=== PATIENT | female | born 1940 | race Caucasian/White ===

== ENCOUNTER 2018-02-03 23:04 | Emergency (ER) | payer MEDICARE, BC ==
--- NOTE | 2018-02-03 23:16 | EDM.PDOC ---
ED HPI GENERAL MEDICAL PROBLEM - General Stated Complaint: EYES IRRIATION Time Seen by Provider: 02/03/18 23:05 Source of Information: Reports: Patient History Limitations: Reports: No Limitations - History of Present Illness INITIAL COMMENTS - FREE TEXT/NARRATIVE: Deandra had minor splash of bleach into both eyes. She washed them for 5 minutes and put some eye for drops (refresh tears),but still complains of burning and blurred vision. - Related Data Allergies Allergy/AdvReac Type Severity Reaction Status Date / Time chocolate flavor Allergy Hives Verified 04/03/16 19:41 oxycodone HCl Allergy Cannot Verified 04/03/16 19:41 [From OxyContin] Remember Home Meds: Home Meds Gabapentin [Neurontin] 100 mg PO BEDTIME 04/03/16 [History] Lisinopril [Prinivil] 10 mg PO DAILY 04/03/16 [History] Pravastatin [Pravachol] 10 mg PO BEDTIME 04/03/16 [History] Sulfamethoxazole/Trimethoprim [Bactrim Ds Tablet] 1 tab PO Q12H 04/03/16 [ History] cephALEXin [Cephalexin] 500 mg PO Q6HR #30 capsule 04/03/16 [Rx] metFORMIN [Glucophage] 250 mg PO BID 04/03/16 [History] Past Medical History HEENT History: Reports: Cataract Cardiovascular History: Reports: Heart Murmur, Hypertension Gastrointestinal History: Reports: GERD 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 ED EXAM GENERAL W FULL EYE - Physical Exam Exam: See Below Eye Exam: Bilateral Eye: Conjunctival Injection, PERRL With Correction: No Eyelids: Bilateral: Normal Appearance, Subcutaneous Emphysema Conjunctiva & Sclera: Bilateral: Injected Cornea Exam: Bilateral: Normal Appearance Extraocular Movements: Bilateral: Intact Pupils: Normal Accommodation Pupillary Size: Bilateral: 4 mm Pupillary Reaction: Bilateral: Brisk Anterior Chamber: Bilateral: Normal Appearance Posterior Chamber: Bilateral: Normal Funduscopic Ears: Other (mild redness periorbital) Nose: Normal Inspection Throat/Mouth: Normal Inspection Departure - Departure Time of Disposition: 23:19 Disposition: Home, Self-Care 01 Clinical Impression: Chemical burn of eye - Discharge Information Instructions: Chemical Burn of the Eyes, Adult Referrals: Cris Flores NP [Primary Care Provider] - - Problem List & Annotations (1) Chemical burn of eye SNOMED Code(s): 280973754, 010328080 Code(s): T26.90XA - CORROSION OF UNSP EYE AND ADNEXA, PART UNSP, INIT ENCNTR Status: Acute - Problem List Review Problem List Initiated/Reviewed/Updated: Yes - Assessment/Plan Plan: We contacted poison board control who recommended observation and reassurance. We discharge the patient home to use refresh drops as needed and follow-up when necessary
[2018-02-03 23:59] VITALS: BP 158/81
== END 2018-02-03 23:30 | disposition home or self-care (01) ==
LOC: FB.ED 23:04
DX: T26.92XA Corrosion of left eye and adnexa, part unspecified, initial encounter (principal); T26.91XA Corrosion of right eye and adnexa, part unspecified, initial encounter; I10 Essential (primary) hypertension; K21.9 Gastro-esophageal reflux disease without esophagitis; Z88.8 Allergy status to other drugs, medicaments and biological substances; Z91.018 Allergy to other foods; Z79.82 Long term (current) use of aspirin; Z77.098 Contact with and (suspected) exposure to other hazardous, chiefly nonmedicinal, chemicals
CPT/HCPCS: 99282; 99283

== ENCOUNTER 2018-08-06 11:22 | Inpatient (IN) | payer MEDICARE, BC ==
[2018-08-06] MEDS ORDERED: ALPRAZolam 0.25 MG Tab PO PRN (12:33)
[2018-08-06] MEDS ORDERED: Bisacodyl 5 MG Tab PO PRN (12:50)
[2018-08-06] MEDS ORDERED: Ketotifen 0.025% Ophth Soln 5 ML Bottle EYEBOTH PRN (12:50)
[2018-08-06] MEDS ORDERED: Cetirizine 10 MG Tab PO PRN (12:50)
[2018-08-06] MEDS ORDERED: Bisacodyl 10 MG Supp RECTAL PRN (12:50)
[2018-08-06] MEDS ORDERED: Magnesium Hydroxide 400 MG/5 ML Susp 30 ML Cup PO PRN (12:50)
[2018-08-06] MEDS: Acetaminophen 325 MG Tab PO SCH ×3 (14:26→23:13)
[2018-08-06] MEDS: traMADol 50 MG Tab PO SCH ×2 (14:28→20:26)
[2018-08-06] MEDS: metFORMIN 500 MG Tab PO SCH (17:57)
[2018-08-06] MEDS: diphenhydrAMINE 50 MG Cap PO SCH (20:29)
[2018-08-06] MEDS: rOPINIRole 0.5 MG Tab PO SCH (20:30)
[2018-08-06] MEDS: Aspirin 325 MG Tab.EC PO SCH (20:30)
[2018-08-06] MEDS: Fish Oil/Omega-3 Fatty Acids 1 Gm Cap PO SCH (20:30)
[2018-08-06] MEDS: Gabapentin 100 MG Cap PO SCH (20:30)
[2018-08-06] MEDS: Simvastatin 10 MG Tab PO SCH (20:31)
[2018-08-07] MEDS: traMADol 50 MG Tab PO SCH ×4 (01:57→21:24)
[2018-08-07] MEDS ORDERED: traMADol 50 MG Tab PO ONE (04:49)
[2018-08-07] MEDS: Pantoprazole 40 MG Tab.CR PO SCH (05:20)
[2018-08-07] MEDS: Acetaminophen 325 MG Tab PO SCH ×4 (05:20→23:50)
[2018-08-07] MEDS: metFORMIN 500 MG Tab PO SCH ×2 (07:56→17:29)
[2018-08-07] MEDS: Aspirin 325 MG Tab.EC PO SCH ×2 (08:00→21:26)
[2018-08-07] MEDS: Fish Oil/Omega-3 Fatty Acids 1 Gm Cap PO SCH ×2 (08:00→21:27)
[2018-08-07] MEDS: Lisinopril 10 MG Tab PO SCH (08:01)
[2018-08-07] MEDS: Calcium Carbonate/Vitamin D3 1250 MG-200 Unit Tab PO SCH (08:01)
[2018-08-07] MEDS: Carboxymethylcellulose Sodium 1% Ophth Gel 0.4 ML UD Box of 30 EYEBOTH SCH (08:02)
[2018-08-07] MEDS: Polyethylene Glycol 3350 Powder 17 GM Packet PO SCH (08:02)
[2018-08-07] MEDS: Gabapentin 100 MG Cap PO SCH ×2 (08:08→21:27)
[2018-08-07] MEDS: diphenhydrAMINE 50 MG Cap PO SCH (21:26)
[2018-08-07] MEDS: rOPINIRole 0.5 MG Tab PO SCH (21:27)
[2018-08-07] MEDS: Simvastatin 10 MG Tab PO SCH (21:29)
[2018-08-08] MEDS: traMADol 50 MG Tab PO SCH ×4 (02:18→19:57)
[2018-08-08] MEDS: Acetaminophen 325 MG Tab PO SCH ×3 (05:07→17:32)
[2018-08-08] MEDS: Pantoprazole 40 MG Tab.CR PO SCH (05:07)
[2018-08-08] MEDS: metFORMIN 500 MG Tab PO SCH ×2 (07:32→17:33)
[2018-08-08] MEDS: Fish Oil/Omega-3 Fatty Acids 1 Gm Cap PO SCH ×2 (08:07→21:50)
[2018-08-08] MEDS: Aspirin 325 MG Tab.EC PO SCH ×2 (08:07→21:50)
[2018-08-08] MEDS: Calcium Carbonate/Vitamin D3 1250 MG-200 Unit Tab PO SCH (08:07)
[2018-08-08] MEDS: Polyethylene Glycol 3350 Powder 17 GM Packet PO SCH (08:08)
[2018-08-08] MEDS: Lisinopril 10 MG Tab PO SCH (08:08)
[2018-08-08] MEDS: Carboxymethylcellulose Sodium 1% Ophth Gel 0.4 ML UD Box of 30 EYEBOTH SCH (08:11)
[2018-08-08] MEDS: Gabapentin 100 MG Cap PO SCH ×2 (09:00→21:54)
[2018-08-08] MEDS: diphenhydrAMINE 50 MG Cap PO SCH (21:49)
[2018-08-08] MEDS: rOPINIRole 0.5 MG Tab PO SCH (21:50)
[2018-08-08] MEDS: Simvastatin 10 MG Tab PO SCH (21:52)
[2018-08-09] MEDS: Acetaminophen 325 MG Tab PO SCH ×4 (00:26→17:44)
[2018-08-09] MEDS: traMADol 50 MG Tab PO SCH ×4 (02:21→19:55)
[2018-08-09] MEDS: Pantoprazole 40 MG Tab.CR PO SCH (05:56)
[2018-08-09] MEDS: metFORMIN 500 MG Tab PO SCH ×2 (08:16→17:44)
[2018-08-09] MEDS: Calcium Carbonate/Vitamin D3 1250 MG-200 Unit Tab PO SCH (08:17)
[2018-08-09] MEDS: Lisinopril 10 MG Tab PO SCH (08:18)
[2018-08-09] MEDS: Aspirin 325 MG Tab.EC PO SCH ×2 (08:18→21:45)
[2018-08-09] MEDS: Gabapentin 100 MG Cap PO SCH ×2 (08:18→21:48)
[2018-08-09] MEDS: Carboxymethylcellulose Sodium 1% Ophth Gel 0.4 ML UD Box of 30 EYEBOTH SCH (08:19)
[2018-08-09] MEDS: Polyethylene Glycol 3350 Powder 17 GM Packet PO SCH (08:20)
[2018-08-09] MEDS: Fish Oil/Omega-3 Fatty Acids 1 Gm Cap PO SCH ×2 (08:20→21:45)
[2018-08-09] MEDS: diphenhydrAMINE 50 MG Cap PO SCH (21:44)
[2018-08-09] MEDS: rOPINIRole 0.5 MG Tab PO SCH (21:45)
[2018-08-09] MEDS: Simvastatin 10 MG Tab PO SCH (21:46)
[2018-08-10] MEDS: Acetaminophen 325 MG Tab PO SCH ×4 (00:10→17:28)
[2018-08-10] MEDS: traMADol 50 MG Tab PO SCH ×4 (02:06→20:28)
[2018-08-10] MEDS: Pantoprazole 40 MG Tab.CR PO SCH (05:06)
[2018-08-10] MEDS: Fish Oil/Omega-3 Fatty Acids 1 Gm Cap PO SCH ×2 (08:20→20:24)
[2018-08-10] MEDS: Calcium Carbonate/Vitamin D3 1250 MG-200 Unit Tab PO SCH (08:20)
[2018-08-10] MEDS: metFORMIN 500 MG Tab PO SCH ×2 (08:20→17:28)
[2018-08-10] MEDS: Aspirin 325 MG Tab.EC PO SCH ×2 (08:20→20:24)
[2018-08-10] MEDS: Lisinopril 10 MG Tab PO SCH (08:21)
[2018-08-10] MEDS: Polyethylene Glycol 3350 Powder 17 GM Packet PO SCH (08:22)
[2018-08-10] MEDS: Carboxymethylcellulose Sodium 1% Ophth Gel 0.4 ML UD Box of 30 EYEBOTH SCH (09:56)
[2018-08-10] MEDS: Gabapentin 100 MG Cap PO SCH ×2 (09:56→20:28)
[2018-08-10] MEDS: rOPINIRole 0.5 MG Tab PO SCH (20:23)
[2018-08-10] MEDS: Simvastatin 10 MG Tab PO SCH (20:24)
[2018-08-10] MEDS: diphenhydrAMINE 50 MG Cap PO SCH (20:24)
[2018-08-11] MEDS: Acetaminophen 325 MG Tab PO SCH ×4 (00:10→17:48)
[2018-08-11] MEDS: traMADol 50 MG Tab PO SCH ×4 (02:06→21:32)
[2018-08-11] MEDS ORDERED: Alendronate 70 MG Tab PO SCH (06:00)
[2018-08-11] MEDS: Pantoprazole 40 MG Tab.CR PO SCH (06:09)
[2018-08-11] MEDS: metFORMIN 500 MG Tab PO SCH ×2 (08:38→18:04)
[2018-08-11] MEDS: Aloe Vera/Sodium Chloride Gel 14.1 GM Tube NAS PRN (08:41)
[2018-08-11] MEDS: Calcium Carbonate/Vitamin D3 1250 MG-200 Unit Tab PO SCH (08:42)
[2018-08-11] MEDS: Fish Oil/Omega-3 Fatty Acids 1 Gm Cap PO SCH ×2 (08:42→21:34)
[2018-08-11] MEDS: Aspirin 325 MG Tab.EC PO SCH ×2 (08:42→21:34)
[2018-08-11] MEDS: Lisinopril 10 MG Tab PO SCH (08:43)
[2018-08-11] MEDS: Gabapentin 100 MG Cap PO SCH ×2 (08:43→21:35)
[2018-08-11] MEDS: Polyethylene Glycol 3350 Powder 17 GM Packet PO SCH (08:43)
[2018-08-11] MEDS: Carboxymethylcellulose Sodium 1% Ophth Gel 0.4 ML UD Box of 30 EYEBOTH SCH (08:50)
--- NOTE | 2018-08-11 19:31 | PCM.HP ---
H&P History of Present Illness - General Date of Service: 08/11/18 Admit Problem/Dx: Admission Diagnosis/Problem Admission Diagnosis/Problem Arthroplasty of knee Source of Information: Patient History Limitations: Reports: No Limitations - History of Present Illness Initial Comments - Free Text/Narative: Is a 77-year-old female patient with a TKA comes down for rehabilitation. Doing well without concerns. Right Knee Pain Score (Numeric/FACES): 5 - Related Data Allergies/Adverse Reactions: Allergies Allergy/AdvReac Type Severity Reaction Status Date / Time chocolate flavor Allergy Hives Verified 08/06/18 12:24 oxycodone HCl Allergy Cannot Verified 08/06/18 12:24 [From OxyContin] Remember red dye Allergy Itching Verified 08/06/18 12:24 Sulfa (Sulfonamide Allergy Nausea Verified 08/06/18 12:24 Antibiotics) Home Medications: Home Meds Lisinopril [Prinivil] 10 mg PO DAILY 04/03/16 [History] Pravastatin [Pravachol] 10 mg PO BEDTIME 04/03/16 [History] metFORMIN [Glucophage] 250 mg PO BIDMEALS 04/03/16 [History] ALPRAZolam [Alprazolam] 0.125 mg PO BEDTIME PRN 02/04/18 [History] Alendronate Sodium [Fosamax] 70 mg PO Q7D 02/04/18 [History] Gabapentin [Neurontin] 100 mg PO BID 02/04/18 [History] Omeprazole 20 mg PO DAILY 02/04/18 [History] rOPINIRole [Requip] 0.25 mg PO BEDTIME 02/04/18 [History] Acetaminophen [Tylenol] 650 mg PO Q6H 08/06/18 [History] Acetaminophen/Diphenhydramine [Tylenol Pm Ex-Strength Caplet] 2 tab PO BEDTIME 08/06/18 [History] Aspirin [Aspirin EC] 325 mg PO BID 08/06/18 [History] Aspirin [Halfprin] 81 mg PO DAILY 08/06/18 [History] Bisacodyl 5 mg PO BID PRN 08/06/18 [History] Bisacodyl [Dulcolax] 10 mg RC DAILY PRN 08/06/18 [History] Calcium Carbonate/Vitamin D3 [Calcium 600 + Vit D 200] 1 tab PO DAILY 08/06/18 [ History] Carboxymethylcellulose Sodium [Refresh Celluvisc] 1 drop EYEBOTH DAILY 08/06/18 [History] Cetirizine [ZyrTEC] 10 mg PO DAILY PRN 08/06/18 [History] Ketotifen [Ketotifen 0.025% Ophth Soln] 1 drop EYEBOTH Q12H PRN 08/06/18 [ History] Lutein 10 mg PO DAILY 08/06/18 [History] Magnesium Hydroxide [Milk of Magnesia] 30 ml PO BID PRN 08/06/18 [History] Page-3 Fatty Acids/Epa [Neurepa 1 Gram Capsule] 1 gm PO BID 08/06/18 [History] Polyethylene Glycol 3350 [MiraLAX] 17 gm PO DAILY 08/06/18 [History] Sennosides/Docusate Sodium [Senna-S] 1 each PO BID 08/06/18 [History] Sodium Chloride/Aloe Vera [Saline Nasal Gel] 1 applic ARMANDO ASDIRECTED PRN [History] oxyCODONE 5 mg PO Q4H PRN 08/06/18 [History] traMADol [Ultram] 50 mg PO Q6H PRN 08/06/18 [History] Past Medical History HEENT History: Reports: Allergic Rhinitis, Cataract Cardiovascular History: Reports: Heart Murmur, High Cholesterol, Hypertension, Other (See Below) Other Cardiovascular History: varicose veins, hyperlipidemia Gastrointestinal History: Reports: Diverticulosis, GERD 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/BYN History: Musculoskeletal History: Reports: Osteoarthritis Neurological History: Reports: Neuropathy, Peripheral, Other (See Below) Other Neuro History: restless leg syndrome, polyneuropathy Psychiatric History: Reports: Anxiety Endocrine/Metabolic History: Reports: Diabetes, Type II Hematologic History: Reports: Anemia - Past Surgical History HEENT Surgical History: Reports: Cataract Surgery GI Surgical History: Reports: Cholecystectomy, Colonoscopy, EGD, Hernia, Abdominal, Hernia Repair/Other Female Surgical History: Reports: Hysterectomy, Other (See Below) Other Female Surgeries/Procedures: BSO, bladder repair Musculoskeletal Surgical History: Reports: Hip Replacement, Knee Replacement, Other (See Below) Other Musculoskeletal Surgeries/Procedures:: Toe fusion, Social & Family History - Family History Family Medical History: Noncontributory - Tobacco Use Smoking Status *Q: Never Smoker - Caffeine Use Caffeine Use: Reports: Coffee - Recreational Drug Use Recreational Drug Use: No H&P Review of Systems - Review of Systems: Review Of Systems: See Below General: Reports: No Symptoms HEENT: Reports: No Symptoms Pulmonary: Reports: No Symptoms Cardiovascular: Reports: No Symptoms Gastrointestinal: Reports: No Symptoms Genitourinary: Reports: No Symptoms Musculoskeletal: Reports: Leg Pain Skin: Reports: No Symptoms Psychiatric: Reports: No Symptoms Neurological: Reports: No Symptoms Exam - Exam Exam: See Below - Vital Signs Vital Signs: Last Vital Signs Temp 96.4 F 08/11/18 11:59 Pulse 75 08/11/18 11:59 Resp 17 08/11/18 11:59 BP 129/57 L 08/11/18 11:59 Pulse Ox 93 L 08/11/18 11:59 Weight: 177 lb 4.8 oz - Exam General: Alert, Oriented, 4 HEENT: PERRLA, Conjunctiva Clear, EACs Clear, EOMI, Hearing Intact, Mucosa Moist & [place], Posterior Pharynx Clear, TMs Clear Neck: Supple, Trachea Midline, 2 Lungs: Clear to Auscultation, Normal Respiratory Effort Cardiovascular: Regular Rate, Regular Rhythm GI/Abdominal Exam: Normal Bowel Sounds, Soft, Non-Tender, No Organomegaly, No Distention, No Abnormal Bruit, No Mass Back Exam: Normal Inspection, Full Range of Motion, NT Extremities: No Pedal Edema, Other (Knee wrapped up not visualized.) Skin: Warm, Dry, Intact Neurological: Normal Speech Neuro Extensive - Mental Status: Alert, Oriented x3, Normal Mood/Affect, Normal Cognition Psychiatric: Alert, Normal Affect, Normal Mood - Patient Data Lab Results Last 24 hrs: Laboratory Results - last 24 hr 08/11/18 Range/Units 06:13 POC Glucose 113 (80-116) mg/dL - Problem List (1) S/P total knee arthroplasty SNOMED Code(s): 7474899419813, [id number], 3961600622635 ICD Code: Z96.659 - PRESENCE OF UNSPECIFIED ARTIFICIAL KNEE JOINT Status: Acute Current Visit: Yes Problem List Initiated/Reviewed/Updated: Yes Orders Last 24hrs: Active Orders 24 hr Category Date Time Status Alendronate [Fosamax] Med 08/11/18 06:00 Active 70 mg PO Tu Aspirin [Halfprin] Med 08/16/18 09:00 Active 81 mg PO DAILY Medication Orders Acetaminophen (Tylenol) 650 mg PO 0000,0600,1200,1800 COUNTS INCLUDE 234 BEDS AT THE [facility] Last Admin: 08/11/18 17:48 Dose: 650 mg Admin: 08/11/18 11:48 Dose: 650 mg Admin: 08/11/18 06:09 Dose: 650 mg Admin: 08/11/18 00:10 Dose: 650 mg Admin: 08/10/18 17:28 Dose: 650 mg Admin: 08/10/18 12:30 Dose: 650 mg Admin: 08/10/18 05:06 Dose: 650 mg Admin: 08/10/18 00:10 Dose: 650 mg Admin: 08/09/18 17:44 Dose: 650 mg Admin: 08/09/18 12:53 Dose: 650 mg Admin: 08/09/18 05:56 Dose: 650 mg Admin: 08/09/18 00:26 Dose: 650 mg Admin: 08/08/18 17:32 Dose: 650 mg Admin: 08/08/18 12:56 Dose: 650 mg Admin: 08/08/18 05:07 Dose: 650 mg Admin: 08/07/18 23:50 Dose: 650 mg Admin: 08/07/18 17:28 Dose: 650 mg Admin: 08/07/18 11:23 Dose: 650 mg Admin: 08/07/18 05:20 Dose: 650 mg Admin: 08/06/18 23:13 Dose: 650 mg Admin: 08/06/18 17:56 Dose: 650 mg Admin: 08/06/18 14:26 Dose: 650 mg Alendronate Sodium (Fosamax) 70 mg PO Tu COUNTS INCLUDE 234 BEDS AT THE [facility] Last Admin: 08/11/18 05:05 Dose: 70 mg Alprazolam (Xanax) 0.25 mg PO Q12H PRN PRN Reason: ANXIETY Artificial Tears (Refresh Celluvisc) 0 each EYEBOTH DAILY COUNTS INCLUDE 234 BEDS AT THE [facility] Last Admin: 08/11/18 08:50 Dose: 1 drop Admin: 08/10/18 09:56 Dose: 1 drop Admin: 08/09/18 08:19 Dose: 2 drop Admin: 08/08/18 08:11 Dose: 1 drop Admin: 08/07/18 08:02 Dose: 1 drop Aspirin (Ecotrin) 325 mg PO BID COUNTS INCLUDE 234 BEDS AT THE [facility] Stop: 08/15/18 21:01 Last Admin: 08/11/18 08:42 Dose: 325 mg Admin: 08/10/18 20:24 Dose: 325 mg Admin: 08/10/18 08:20 Dose: 325 mg Admin: 08/09/18 21:45 Dose: 325 mg Admin: 08/09/18 08:18 Dose: 325 mg Admin: 08/08/18 21:50 Dose: 325 mg Admin: 08/08/18 08:07 Dose: 325 mg Admin: 08/07/18 21:26 Dose: 325 mg Admin: 08/07/18 08:00 Dose: 325 mg Admin: 08/06/18 20:30 Dose: 325 mg Aspirin (Halfprin) 81 mg PO DAILY JOHN Bisacodyl (Dulcolax) 5 mg PO BID PRN PRN Reason: Constipation Bisacodyl (Dulcolax) 10 mg RECTAL DAILY PRN PRN Reason: Constipation Calcium Carbonate (Calcium Carbonate/Vitamin D 1250 Mg-200 Unit) 1 tab PO DAILY COUNTS INCLUDE 234 BEDS AT THE [facility] Last Admin: 08/11/18 08:42 Dose: 1 tab Admin: 08/10/18 08:20 Dose: 1 tab Admin: 08/09/18 08:17 Dose: 1 tab Admin: 08/08/18 08:07 Dose: 1 tab Admin: 08/07/18 08:01 Dose: 1 tab Cetirizine HCl (Zyrtec) 10 mg PO DAILY PRN PRN Reason: Allergies Diphenhydramine HCl (Benadryl) 50 mg PO BEDTIME COUNTS INCLUDE 234 BEDS AT THE [facility] Last Admin: 08/10/18 20:24 Dose: 50 mg Admin: 08/09/18 21:44 Dose: 50 mg Admin: 08/08/18 21:49 Dose: 50 mg Admin: 08/07/18 21:26 Dose: 50 mg Admin: 08/06/18 20:29 Dose: 50 mg Fish Oil (Fish Oil) 1 gm PO BID COUNTS INCLUDE 234 BEDS AT THE [facility] Last Admin: 08/11/18 08:42 Dose: 1 gm Admin: 08/10/18 20:24 Dose: 1 gm Admin: 08/10/18 08:20 Dose: 1 gm Admin: 08/09/18 21:45 Dose: 1 gm Admin: 08/09/18 08:20 Dose: 1 gm Admin: 08/08/18 21:50 Dose: 1 gm Admin: 08/08/18 08:07 Dose: 1 gm Admin: 08/07/18 21:27 Dose: 1 gm Admin: 08/07/18 08:00 Dose: 1 gm Admin: 08/06/18 20:30 Dose: 1 gm Gabapentin (Neurontin) 100 mg PO BID COUNTS INCLUDE 234 BEDS AT THE [facility] Last Admin: 08/11/18 08:43 Dose: 100 mg Admin: 08/10/18 20:28 Dose: 100 mg Admin: 08/10/18 09:56 Dose: 100 mg Admin: 08/09/18 21:48 Dose: 100 mg Admin: 08/09/18 08:18 Dose: 100 mg Admin: 08/08/18 21:54 Dose: 100 mg Admin: 08/08/18 09:00 Dose: 100 mg Admin: 08/07/18 21:27 Dose: 100 mg Admin: 08/07/18 08:08 Dose: 100 mg Admin: 08/06/18 20:30 Dose: 100 mg Ketotifen Fumarate (Ketotifen 0.025% Ophth Soln) 0 ml EYEBOTH Q12H PRN PRN Reason: EYE RELIEF Lisinopril (Prinivil) 10 mg PO DAILY COUNTS INCLUDE 234 BEDS AT THE [facility] Last Admin: 08/11/18 08:43 Dose: 10 mg Admin: 08/10/18 08:21 Dose: 10 mg Admin: 08/09/18 08:18 Dose: 10 mg Admin: 08/08/18 08:08 Dose: 10 mg Admin: 08/07/18 08:01 Dose: 10 mg Lutein (Lutein) 10 mg PO DAILY COUNTS INCLUDE 234 BEDS AT THE [facility] Last Admin: 08/11/18 08:43 Dose: 10 mg Admin: 08/10/18 08:21 Dose: 10 mg Admin: 08/09/18 08:18 Dose: 10 mg Admin: 08/08/18 08:08 Dose: 10 mg Admin: 08/07/18 08:01 Dose: 10 mg Magnesium Hydroxide (Milk Of Magnesia) 30 ml PO BID PRN PRN Reason: Constipation Metformin HCl (Glucophage) 250 mg PO BIDMEALS COUNTS INCLUDE 234 BEDS AT THE [facility] Last Admin: 08/11/18 18:04 Dose: 250 mg Admin: 08/11/18 08:38 Dose: 250 mg Admin: 08/10/18 17:28 Dose: 250 mg Admin: 08/10/18 08:20 Dose: 250 mg Admin: 08/09/18 17:44 Dose: 250 mg Admin: 08/09/18 08:16 Dose: 250 mg Admin: 08/08/18 17:33 Dose: 250 mg Admin: 08/08/18 07:32 Dose: 250 mg Admin: 08/07/18 17:29 Dose: 250 mg Admin: 08/07/18 07:56 Dose: 250 mg Admin: 08/06/18 17:57 Dose: 250 mg Pantoprazole Sodium (Protonix) 40 mg PO DAILY@0600 COUNTS INCLUDE 234 BEDS AT THE [facility] Last Admin: 08/11/18 06:09 Dose: 40 mg Admin: 08/10/18 05:06 Dose: 40 mg Admin: 08/09/18 05:56 Dose: 40 mg Admin: 08/08/18 05:07 Dose: 40 mg Admin: 08/07/18 05:20 Dose: 40 mg Polyethylene Glycol (Miralax) 17 gm PO DAILY COUNTS INCLUDE 234 BEDS AT THE [facility] Last Admin: 08/11/18 08:43 Dose: 17 gm Admin: 08/10/18 08:22 Dose: 17 gm Admin: 08/09/18 08:20 Dose: 17 gm Admin: 08/08/18 08:08 Dose: Not Given Admin: 08/07/18 08:02 Dose: 17 gm Ropinirole HCl (Requip) 0.25 mg PO BEDTIME COUNTS INCLUDE 234 BEDS AT THE [facility] Last Admin: 08/10/18 20:23 Dose: 0.25 mg Admin: 08/09/18 21:45 Dose: 0.25 mg Admin: 08/08/18 21:50 Dose: 0.25 mg Admin: 08/07/18 21:27 Dose: 0.25 mg Admin: 08/06/18 20:30 Dose: 0.25 mg Senna/Docusate Sodium (Senna Plus) 1 tab PO BID COUNTS INCLUDE 234 BEDS AT THE [facility] Last Admin: 08/11/18 08:43 Dose: 1 tab Admin: 08/10/18 20:23 Dose: 1 tab Admin: 08/10/18 08:21 Dose: 1 tab Admin: 08/09/18 21:46 Dose: 1 tab Admin: 08/09/18 08:19 Dose: 1 tab Admin: 08/08/18 21:51 Dose: 1 tab Admin: 08/08/18 08:12 Dose: 1 tab Admin: 08/07/18 21:28 Dose: 1 tab Admin: 08/07/18 08:02 Dose: 1 tab Admin: 08/06/18 20:31 Dose: 1 tab Simvastatin (Zocor) 5 mg PO BEDTIME COUNTS INCLUDE 234 BEDS AT THE [facility] Last Admin: 08/10/18 20:24 Dose: 5 mg Admin: 08/09/18 21:46 Dose: 5 mg Admin: 08/08/18 21:52 Dose: 5 mg Admin: 08/07/18 21:29 Dose: 5 mg Admin: 08/06/18 20:31 Dose: 5 mg Sodium Chloride (Gabriels Saline Nasal Gel) 0 gm ARMANDO ASDIRECTED PRN PRN Reason: Dryness Last Admin: 08/11/18 08:41 Dose: 1 applic Tramadol HCl (Ultram) 50 mg PO Q6H COUNTS INCLUDE 234 BEDS AT THE [facility] Last Admin: 08/11/18 13:57 Dose: 50 mg Admin: 08/11/18 08:38 Dose: 50 mg Admin: 08/11/18 02:06 Dose: 50 mg Admin: 08/10/18 20:28 Dose: 50 mg Admin: 08/10/18 15:15 Dose: 50 mg Admin: 08/10/18 09:55 Dose: 50 mg Admin: 08/10/18 02:06 Dose: 50 mg Admin: 08/09/18 19:55 Dose: 50 mg Admin: 08/09/18 13:27 Dose: 50 mg Admin: 08/09/18 08:16 Dose: 50 mg Admin: 08/09/18 02:21 Dose: 50 mg Admin: 08/08/18 19:57 Dose: 50 mg Admin: 08/08/18 13:46 Dose: 50 mg Admin: 08/08/18 07:31 Dose: 50 mg Admin: 08/08/18 02:18 Dose: 50 mg Admin: 08/07/18 21:24 Dose: 50 mg Admin: 08/07/18 14:16 Dose: 50 mg Admin: 08/07/18 07:59 Dose: 50 mg Admin: 08/07/18 01:57 Dose: 50 mg Admin: 08/06/18 20:26 Dose: 50 mg Admin: 08/06/18 14:28 Dose: 50 mg Assessment/Plan Comment:: 1. Admit to swing bed. 2. Continue medications the came from the [facility]. 3. Patient wants to be a full code. 4. PT/OT 5. Up ad eldon. 6. Regular diet.
[2018-08-11] MEDS: diphenhydrAMINE 50 MG Cap PO SCH (21:33)
[2018-08-11] MEDS: rOPINIRole 0.5 MG Tab PO SCH (21:35)
[2018-08-11] MEDS: Simvastatin 10 MG Tab PO SCH (21:36)
[2018-08-12] MEDS: Acetaminophen 325 MG Tab PO SCH ×4 (00:15→17:52)
[2018-08-12] MEDS: traMADol 50 MG Tab PO SCH ×4 (01:57→20:36)
[2018-08-12] MEDS: Pantoprazole 40 MG Tab.CR PO SCH (06:07)
[2018-08-12] MEDS: Gabapentin 100 MG Cap PO SCH ×2 (08:31→20:37)
[2018-08-12] MEDS: metFORMIN 500 MG Tab PO SCH ×2 (08:36→17:52)
[2018-08-12] MEDS: Fish Oil/Omega-3 Fatty Acids 1 Gm Cap PO SCH ×2 (08:36→20:37)
[2018-08-12] MEDS: Calcium Carbonate/Vitamin D3 1250 MG-200 Unit Tab PO SCH (08:36)
[2018-08-12] MEDS: Aspirin 325 MG Tab.EC PO SCH ×2 (08:36→20:37)
[2018-08-12] MEDS: Polyethylene Glycol 3350 Powder 17 GM Packet PO SCH (08:37)
[2018-08-12] MEDS: Carboxymethylcellulose Sodium 1% Ophth Gel 0.4 ML UD Box of 30 EYEBOTH SCH (08:38)
[2018-08-12] MEDS: Lisinopril 10 MG Tab PO SCH (08:42)
[2018-08-12] MEDS: Aloe Vera/Sodium Chloride Gel 14.1 GM Tube NAS PRN (08:44)
[2018-08-12] MEDS: rOPINIRole 0.5 MG Tab PO SCH (20:37)
[2018-08-12] MEDS: diphenhydrAMINE 50 MG Cap PO SCH (20:37)
[2018-08-12] MEDS: Simvastatin 10 MG Tab PO SCH (20:38)
[2018-08-13] MEDS: Acetaminophen 325 MG Tab PO SCH ×3 (00:44→12:46)
[2018-08-13] MEDS: traMADol 50 MG Tab PO SCH ×2 (03:02→08:24)
[2018-08-13] MEDS: Pantoprazole 40 MG Tab.CR PO SCH (05:49)
[2018-08-13] MEDS: Gabapentin 100 MG Cap PO SCH (08:23)
[2018-08-13] MEDS: metFORMIN 500 MG Tab PO SCH (08:23)
[2018-08-13] MEDS: Calcium Carbonate/Vitamin D3 1250 MG-200 Unit Tab PO SCH (08:23)
[2018-08-13] MEDS: Fish Oil/Omega-3 Fatty Acids 1 Gm Cap PO SCH (08:24)
[2018-08-13] MEDS: Lisinopril 10 MG Tab PO SCH (08:25)
[2018-08-13] MEDS: Polyethylene Glycol 3350 Powder 17 GM Packet PO SCH (08:25)
[2018-08-13] MEDS: Aspirin 325 MG Tab.EC PO SCH (08:25)
[2018-08-13 08:26] VITALS: BP 128/73
[2018-08-13] MEDS: Carboxymethylcellulose Sodium 1% Ophth Gel 0.4 ML UD Box of 30 EYEBOTH SCH (08:26)
--- NOTE | 2018-08-13 16:19 | DISCH ---
DISCHARGE DATE: 08/13/2018 REASON FOR ADMISSION: Rehab for TKA. DISCHARGE DIAGNOSES: Rehab for total knee arthroplasty, status post right knee total knee arthroplasty. SECONDARY DIAGNOSES: 1. Restless legs syndrome. 2. Anxiety disorder. 3. Hypertension. 4. Gastroesophageal reflux disease. 5. Heart murmur. CONSULTATIONS: Physical and Occupational Therapy. HOSPITAL COURSE: A 77-year-old, who was admitted for rehab after the right TKA. Did very well and is ready to go home today. DISCHARGE MEDICATIONS: 1. Tramadol 50 mg q.i.d. p.r.n., 40 tablets. 2. Xanax 0.125 mg at bedtime and b.i.d. p.r.n. She will also go home on: 1. Dulcolax b.i.d. p.r.n. 5 mg. 2. Aspirin 325 mg b.i.d. 3. Fosamax 70 mg a month. 4. Acetaminophen. 5. Fish oil. 6. Gabapentin 100 mg b.i.d. 7. Lisinopril 10 mg a day. 8. Metformin 250 mg p.o. b.i.d. 9. Prilosec 40 mg a day. 10.Zocor 5 mg at bedtime. 11.Requip 0.25 mg at bedtime. FOLLOWUP: She will see her orthopedic physician as previously scheduled. She will need to go home with home health services to continue with physical and occupational therapy and medication management. I spent more than 35 minutes in the discharge of the patient. /[id number] [place]ECT[place]
[2018-08-16] MEDS ORDERED: Aspirin 81 MG Tab.EC PO SCH (09:00)
== END 2018-08-13 13:00 | disposition home health service (06) | DRG 561 ==
LOC: FB.MS 11:51
PROVIDERS: ADMIT Family Medicine; ATTEND Family Medicine
DX: Z47.1 Aftercare following joint replacement surgery (principal); Z96.651 Presence of right artificial knee joint; G25.81 Restless legs syndrome; F41.9 Anxiety disorder, unspecified; I10 Essential (primary) hypertension; K21.9 Gastro-esophageal reflux disease without esophagitis; R01.1 Cardiac murmur, unspecified; E78.00 Pure hypercholesterolemia, unspecified; E78.5 Hyperlipidemia, unspecified; M19.90 Unspecified osteoarthritis, unspecified site; E11.42 Type 2 diabetes mellitus with diabetic polyneuropathy; D64.9 Anemia, unspecified; Z79.84 Long term (current) use of oral hypoglycemic drugs; Z90.49 Acquired absence of other specified parts of digestive tract; Z90.710 Acquired absence of both cervix and uterus; Z96.649 Presence of unspecified artificial hip joint; Z79.82 Long term (current) use of aspirin; Z79.899 Other long term (current) drug therapy; Z88.5 Allergy status to narcotic agent; Z88.2 Allergy status to sulfonamides; Z91.018 Allergy to other foods; Z91.048 Other nonmedicinal substance allergy status; Z98.1 Arthrodesis status
CPT/HCPCS: 82962; 97110-GP; 97116-GP; 97161-GP; 97165-GO; 97530-GO; 97535-GO; A9270-GY

== ENCOUNTER 2018-11-20 12:00 | Emergency (ER) | payer MEDICARE, BC ==
[2018-11-20] MEDS ORDERED: predniSONE 20 MG Tab PO ONE (13:38)
[2018-11-20] MEDS ORDERED: Famotidine 20 MG Tab PO ONE (13:38)
--- NOTE | 2018-11-20 13:38 | EDM.PDOC ---
ED HPI GENERAL MEDICAL PROBLEM - General Chief Complaint: General Stated Complaint: R FACIAL SWELLING Time Seen by Provider: 11/20/18 13:23 Source of Information: Reports: Patient History Limitations: Reports: No Limitations - History of Present Illness INITIAL COMMENTS - FREE TEXT/NARRATIVE: 78-year-old female who reports that she has been having recurring swelling in various parts of her face for the past 5 years. She apparently has been on lisinopril for quite some time. She was told with her other episodes of swelling that it was an allergic reaction. Sometimes the swelling has been in her neck and others in her face and around her lips. This current episode began this morning upon awakening and has not progressed. She has had no trouble breathing. She's had no trouble swallowing. The area is somewhat uncomfortable. She doesn't really feel this is the pain. It just feels tight. She rates that is mild. There's been no fevers. She has no sore throat. There are no other associated signs or symptoms. There are no other modifying factors. Onset: Today Duration: Constant Location: Reports: Face Quality: Reports: Other (Tightness) Severity: Mild Improves with: Reports: None Worsens with: Reports: None Context: Reports: Other (As above) Associated Symptoms: Reports: No Other Symptoms Treatments MOTOR CHECKER: Reports: NSAIDS - Related Data Allergies Allergy/AdvReac Type Severity Reaction Status Date / Time lisinopril Allergy Severe Edema Verified 11/20/18 13:37 chocolate flavor Allergy Hives Verified 08/06/18 12:24 oxycodone HCl Allergy Cannot Verified 08/06/18 12:24 [From OxyContin] Remember red dye Allergy Itching Verified 08/06/18 12:24 Sulfa (Sulfonamide Allergy Nausea Verified 08/06/18 12:24 Antibiotics) tramadol Allergy Swelling Verified 11/20/18 12:34 Home Meds: Home Meds Lisinopril [Prinivil] 10 mg PO DAILY 04/03/16 [History] metFORMIN [Glucophage] 250 mg PO BIDMEALS 04/03/16 [History] ALPRAZolam [Alprazolam] 0.125 mg PO BEDTIME PRN 02/04/18 [History] Alendronate Sodium [Fosamax] 70 mg PO TU 02/04/18 [History] Gabapentin [Neurontin] 100 mg PO BID 02/04/18 [History] Omeprazole 20 mg PO DAILY 02/04/18 [History] rOPINIRole [Requip] 0.25 mg PO BEDTIME 02/04/18 [History] Acetaminophen [Tylenol] 650 mg PO Q6H 08/06/18 [History] Acetaminophen/Diphenhydramine [Tylenol Pm Ex-Strength Caplet] 2 tab PO BEDTIME 08/06/18 [History] Calcium Carbonate/Vitamin D3 [Calcium 600 + Vit D 200] 1 tab PO DAILY 08/06/18 [ History] Carboxymethylcellulose Sodium [Refresh Celluvisc] 1 drop EYEBOTH DAILY 08/06/18 [History] Cetirizine [ZyrTEC] 10 mg PO DAILY PRN 08/06/18 [History] Lutein 10 mg PO DAILY 08/06/18 [History] [place]-3 Fatty Acids/Epa [Neurepa 1 Gram Capsule] 1 gm PO BID 08/06/18 [History] Sodium Chloride/Aloe Vera [Saline Nasal Gel] 1 applic ARMANDO ASDIRECTED PRN [History] Ranitidine HCl 150 mg PO BID #10 tablet 11/20/18 [Rx] atorvaSTATin [Lipitor] 10 mg PO BEDTIME 11/20/18 [History] predniSONE [Prednisone] 40 mg PO QAM #6 tablet 11/20/18 [Rx] Past Medical History HEENT History: Reports: Allergic Rhinitis, Cataract Cardiovascular History: Reports: Heart Murmur, High Cholesterol, Hypertension, Other (See Below) Other Cardiovascular History: varicose veins, hyperlipidemia Gastrointestinal History: Reports: Diverticulosis, GERD 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: Musculoskeletal History: Reports: Osteoarthritis Neurological History: Reports: Neuropathy, Peripheral, Other (See Below) Other Neuro History: restless leg syndrome, polyneuropathy Psychiatric History: Reports: Anxiety Endocrine/Metabolic History: Reports: Diabetes, Type II Hematologic History: Reports: Anemia - Infectious Disease History Infectious Disease History: Reports: Chicken Pox, Measles, Mumps - Past Surgical History HEENT Surgical History: Reports: Cataract Surgery GI Surgical History: Reports: Cholecystectomy, Colonoscopy, EGD, Hernia, Abdominal, Hernia Repair/Other Female Surgical History: Reports: Hysterectomy, Other (See Below) Other Female Surgeries/Procedures: BSO, bladder repair Musculoskeletal Surgical History: Reports: Hip Replacement, Knee Replacement, Other (See Below) Other Musculoskeletal Surgeries/Procedures:: Toe fusion, Social & Family History - Tobacco Use Smoking Status *Q: Never Smoker - Caffeine Use Caffeine Use: Reports: None - Alcohol Use Alcohol Use History: Yes Alcohol Use Frequency: Rarely - Living Situation & Occupation Occupation: Retired Social History Comment: She is here with her friend. ED ROS GENERAL - Review of Systems Review Of Systems: See Below Constitutional: Reports: No Symptoms HEENT: Reports: Other (No trouble swallowing. Right facial swelling.) Respiratory: Reports: No Symptoms Cardiovascular: Reports: No Symptoms GI/Abdominal: Reports: No Symptoms : Reports: No Symptoms Musculoskeletal: Reports: No Symptoms Skin: Reports: No Symptoms Neurological: Reports: No Symptoms Hematologic/Lymphatic: Reports: No Symptoms Immunologic: Reports: No Symptoms ED EXAM, GENERAL - Physical Exam Exam: See Below Exam Limited By: No Limitations General Appearance: Alert, WD/WN, No Apparent Distress Eye Exam: Left Eye: EOMI, Normal Inspection, PERRL Ears: Normal External Exam Ear Exam: Bilateral Ear: Auricle Normal Nose: Normal Inspection, Normal Mucosa, No Blood Throat/Mouth: Normal Inspection, Normal Oropharynx, Normal Voice, No Airway Compromise Head: Atraumatic, Facial Swelling (Right facial angioedema along the lower jaw and cheek.) Neck: Normal Inspection, Supple, Non-Tender, Full Range of Motion, Other (No stridor) Respiratory/Chest: No Respiratory Distress, Lungs Clear, Normal Breath Sounds, No Accessory Muscle Use, Chest Non-Tender Cardiovascular: Normal Peripheral Pulses, Regular Rate, Rhythm, No JVD, Systolic Murmur Peripheral Pulses: 2+: Radial (L), Radial (R), Dorsalis Pedis (L), Dorsalis Pedis (R) GI/Abdominal: Normal Bowel Sounds, Soft, Non-Tender, No Mass Back Exam: Normal Inspection, Full Range of Motion Extremities: Normal Inspection, Normal Range of Motion, Non-Tender, No Pedal Edema, Normal Capillary Refill Neurological: Alert, Oriented, CN II-XII Intact, Normal Cognition, Normal Gait, No Motor/Sensory Deficits Psychiatric: Normal Affect Skin Exam: Warm, Dry, Intact, Normal Color, No Rash Lymphatic: No Adenopathy Course - Vital Signs Last Recorded V/S: Last Vital Signs Temp 36.3 C 11/20/18 12:29 Pulse 68 11/20/18 14:18 Resp 18 11/20/18 14:18 BP 151/89 H 11/20/18 14:18 Pulse Ox 100 11/20/18 14:18 - Orders/Labs/Meds Meds: Medications Discontinued Medications Generic Name Dose Route Start Last Admin Trade Name Tom PRN Reason Stop Dose Admin Famotidine 20 mg 11/20/18 13:38 11/20/18 14:16 Pepcid PO 11/20/18 13:39 20 mg ONETIME ONE Administration Prednisone 60 mg 11/20/18 13:38 11/20/18 14:16 Prednisone PO 11/20/18 13:39 60 mg ONETIME ONE Administration - Re-Assessments/Exams Free Text/Narrative Re-Assessment/Exam: 11/20/18 13:40: Patient with history of recurring angioedema over the past 5 years. She had onset of right facial swelling this morning that is similar to her previous episodes. She is on lisinopril and has already taken her dose for today but I will have her discontinue the lisinopril and never take it again. I will place her on amlodipine [address] of the lisinopril. I will also treat her with Benadryl, ranitidine and prednisone for the next 3-4 days. She was given a dose of prednisone and Pepcid (we do not have ranitidine on formulary) today and she had already taken a drill Ryer to coming in. She is in no distress at this point. She swallowing normally. She is breathing normally. She is stable for discharge at this time.. 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 Do not take lisinopril again. New medication as prescribed for your blood pressure ( amlodipine 5 mg). Take the Benadryl 25 mg by mouth 4 times a day for the next 2 days and then as needed for/allergic reaction. Other medication as prescribed for your allergic reaction (prednisone, ranitidine). Follow-up with your primary doctor next week to have your blood pressure rechecked. Back to the emergency department for worse swelling, trouble breathing, fever, trouble swallowing or any other concerning sign or symptom.
[2018-11-20 14:41] VITALS: BP 151/89; PULSE 68
== END 2018-11-20 14:25 | disposition home or self-care (01) ==
LOC: FB.ED 12:00
DX: T78.3XXA Angioneurotic edema, initial encounter (principal); T46.4X5A Adverse effect of angiotensin-converting-enzyme inhibitors, initial encounter; I10 Essential (primary) hypertension; K21.9 Gastro-esophageal reflux disease without esophagitis; F41.9 Anxiety disorder, unspecified; M19.90 Unspecified osteoarthritis, unspecified site; E78.5 Hyperlipidemia, unspecified; E11.42 Type 2 diabetes mellitus with diabetic polyneuropathy; Z98.49 Cataract extraction status, unspecified eye; Z90.49 Acquired absence of other specified parts of digestive tract; Z90.710 Acquired absence of both cervix and uterus; Z88.5 Allergy status to narcotic agent; Z88.8 Allergy status to other drugs, medicaments and biological substances; Z91.018 Allergy to other foods; Z86.2 Personal history of diseases of the blood and blood-forming organs and certain disorders involving the immune mechanism; Z79.84 Long term (current) use of oral hypoglycemic drugs; Z79.899 Other long term (current) drug therapy; Z90.722 Acquired absence of ovaries, bilateral
CPT/HCPCS: 99282; A9270; 93010; 99285

== ENCOUNTER 2020-02-27 21:10 | Emergency (ER) | payer MEDICARE, BC ==
--- NOTE | 2020-02-27 21:23 | EDM.PDOC ---
ED HPI GENERAL MEDICAL PROBLEM - General Stated Complaint: HIGH BLOOD PRESSURE Time Seen by Provider: 02/27/20 21:20 Source of Information: Reports: Patient History Limitations: Reports: No Limitations - History of Present Illness INITIAL COMMENTS - FREE TEXT/NARRATIVE: 79-year-old female who reports approximately 2 days ago she began having headache that was on the left side of her head. It has waxed and waned somewhat since then and seems to have improved with Tylenol slightly yesterday and then with Aleve today. However this evening her pain is back up to an 8/10. It is an aching and pressure type pain that seems to radiate all over the left side of her head. She reports that she has been having headaches that are predominantly left-sided for the past few years and they do seem to be worsening with time. This headache has lasted longer than her headaches have lasted previously and that prompted her family to him fluids her to come to the emergency department for evaluation. She has had no nausea or vomiting. No vision problems. No localized arm or leg weakness or numbness. Problems speaking. No problems thinking. No fevers or chills. No neck stiffness. The headache was a gradual onset and in a similar pattern to what she has had in the past but just lasting longer. She has had no chest pain. She has had no shortness of breath. There are no other associated signs or symptoms. There are no other modifying factors. Onset: Other (2 days ago) Duration: Constant (Not going away.) Location: Reports: Head Quality: Reports: Pressure, Throbbing Severity: Moderate (to clear) Improves with: Reports: Rest Worsens with: Reports: None Context: Reports: Other (As above.) Associated Symptoms: Reports: No Other Symptoms Treatments RETORT FIRER: Reports: NSAIDS (Aleve today.) Head Pain Score (Numeric/FACES): 5 - Related Data Allergies Allergy/AdvReac Type Severity Reaction Status Date / Time lisinopril Allergy Severe Edema Verified 11/20/18 13:37 chocolate flavor Allergy Hives Verified 08/06/18 12:24 oxycodone HCl Allergy Cannot Verified 08/06/18 12:24 [From OxyContin] Remember red dye Allergy Itching Verified 08/06/18 12:24 Sulfa (Sulfonamide Allergy Nausea Verified 08/06/18 12:24 Antibiotics) tramadol Allergy Swelling Verified 11/20/18 12:34 Home Meds: Home Meds lisinopriL [Prinivil] 10 mg PO DAILY 04/03/16 [History] metFORMIN [Glucophage] 250 mg PO BIDMEALS 04/03/16 [History] ALPRAZolam [Alprazolam] 0.125 mg PO BEDTIME PRN 02/04/18 [History] Alendronate Sodium [Fosamax] 70 mg PO TU 02/04/18 [History] Gabapentin [Neurontin] 100 mg PO BID 02/04/18 [History] Omeprazole 20 mg PO DAILY 02/04/18 [History] rOPINIRole [Requip] 0.25 mg PO BEDTIME 02/04/18 [History] Acetaminophen [Tylenol] 650 mg PO Q6H 08/06/18 [History] Acetaminophen/Diphenhydramine [Tylenol Pm Ex-Strength Caplet] 2 tab PO BEDTIME 08/06/18 [History] Calcium Carbonate/Vitamin D3 [Calcium 600 + Vit D 200] 1 tab PO DAILY 08/06/18 [History] Carboxymethylcellulose Sodium [Refresh Celluvisc] 1 drop EYEBOTH DAILY 08/06/18 [History] Cetirizine [ZyrTEC] 10 mg PO DAILY PRN 08/06/18 [History] Lutein 10 mg PO DAILY 08/06/18 [History] [place]-3 Fatty Acids/Epa [Neurepa 1 Gram Capsule] 1 gm PO BID 08/06/18 [History] Sodium Chloride/Aloe Vera [Saline Nasal Gel] 1 applic ARMANDO ASDIRECTED PRN 08/06/18 [History] Ranitidine HCl 150 mg PO BID #10 tablet 11/20/18 [Rx] atorvaSTATin [Lipitor] 10 mg PO BEDTIME 11/20/18 [History] predniSONE [Prednisone] 40 mg PO QAM #6 tablet 11/20/18 [Rx] SUMAtriptan [Imitrex] 50 mg PO ASDIRECTED #12 tablet 02/27/20 [Rx] Past Medical History HEENT History: Reports: Allergic Rhinitis, Cataract Cardiovascular History: Reports: Heart Murmur, High Cholesterol, Hypertension, Other (See Below) Other Cardiovascular History: varicose veins, hyperlipidemia Gastrointestinal History: Reports: Diverticulosis, GERD 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 Denies: Anticoagulation Therapy - Infectious Disease History Infectious Disease History: Reports: Chicken Pox, Measles, Mumps - Past Surgical History HEENT Surgical History: Reports: Cataract Surgery GI Surgical History: Reports: Appendectomy, Cholecystectomy, Colonoscopy, EGD, Hernia, Abdominal, Hernia Repair/Other Female Surgical History: Reports: Hysterectomy, Other (See Below) Other Female Surgeries/Procedures: BSO, bladder repair Musculoskeletal Surgical History: Reports: Hip Replacement, Knee Replacement, Other (See Below) Other Musculoskeletal Surgeries/Procedures:: Toe fusion, Social & Family History - Caffeine Use Caffeine Use: Reports: None - Living Situation & Occupation Occupation: Retired ED ROS GENERAL - Review of Systems Review Of Systems: See Below Constitutional: Reports: No Symptoms HEENT: Reports: No Symptoms Respiratory: Reports: No Symptoms Cardiovascular: Reports: No Symptoms GI/Abdominal: Reports: No Symptoms : Reports: No Symptoms Musculoskeletal: Reports: No Symptoms Skin: Reports: No Symptoms Neurological: Reports: Headache. Denies: Paresthesia, Pre-Existing Deficit, Trouble Speaking, Difficulty Walking, Weakness Hematologic/Lymphatic: Reports: No Symptoms Immunologic: Reports: No Symptoms ED EXAM, GENERAL - Physical Exam Exam: See Below Exam Limited By: No Limitations General Appearance: Alert, WD/WN, No Apparent Distress Eye Exam: Bilateral Eye: EOMI, Normal Inspection Ears: Normal External Exam, Hearing Grossly Normal Ear Exam: Bilateral Ear: Auricle Normal Nose: Normal Inspection, Normal Mucosa, No Blood Throat/Mouth: Normal Inspection Head: Atraumatic, Normocephalic Neck: Normal Inspection, Supple, Non-Tender, Full Range of Motion, Lymphadenopathy (L) Respiratory/Chest: No Respiratory Distress, Lungs Clear, Normal Breath Sounds, No Accessory Muscle Use, Chest Non-Tender Cardiovascular: Normal Peripheral Pulses, Regular Rate, Rhythm, Systolic Murmur (3/6) Peripheral Pulses: 2+: Radial (L), Radial (R), Dorsalis Pedis (L), Dorsalis Pedis (R) GI/Abdominal: Normal Bowel Sounds, Soft, Non-Tender, No Mass Back Exam: Normal Inspection Extremities: Normal Inspection, Normal Range of Motion, Non-Tender, No Pedal Edema, Normal Capillary Refill Neurological: Alert, Oriented, CN II-XII Intact, Normal Cognition, No Motor/Sensory Deficits Psychiatric: Normal Affect Skin Exam: Warm, Dry, Intact, Normal Color, No Rash Course - Vital Signs Last Recorded V/S: Last Vital Signs Temp 36.5 C 02/27/20 22:35 Pulse 75 02/27/20 22:50 Resp 16 02/27/20 22:50 BP 160/80 H 02/27/20 22:50 Pulse Ox 95 02/27/20 22:50 - Orders/Labs/Meds Orders: Active Orders 24 hr Category Date Time Status Head wo Cont [CT] Stat Exams 02/27/20 21:40 Taken Labs: Laboratory Tests 02/27/20 02/27/20 Range/Units 21:54 21:54 WBC 6.3 (4.5-12.0) X10-3/uL RBC 3.41 (3.23-5.20) x10(6)uL Hgb 11.3 L (11.5-15.5) g/dL Hct 32.8 (30.0-51.3) % MCV 96.0 (80-96) fL MCH 33.0 (27.7-33.6) pg MCHC 34.4 (32.2-35.4) g/dL RDW 13.5 (11.5-15.5) % Plt Count 323 (125-369) X10(3)uL MPV 7.1 L (7.4-10.4) fL Neut % (Auto) 64.5 (46-82) % Lymph % (Auto) 26.1 (13-37) % [place] % (Auto) 6.6 (4-12) % Eos % (Auto) 2 (1.0-5.0) % Baso % (Auto) 1 (0-2) % Neut # (Auto) 4.1 (1.6-8.3) # Lymph # (Auto) 1.6 (0.6-5.0) # [place] # (Auto) 0.4 (0.0-1.3) # Eos # (Auto) 0.1 (0.0-0.8) # Baso # (Auto) 0.1 (0.0-0.2) # ESR 11 (0-20) mm/hr Sodium 129 L (135-145) mmol/L Potassium 3.8 (3.5-5.3) mmol/L Chloride 92 L (100-110) mmol/L Carbon Dioxide 31 (21-32) mmol/L BUN 18 (7-18) mg/dL Creatinine 1.1 H (0.55-1.02) mg/dL Est Cr Clr Drug Dosing TNP Estimated GFR (MDRD) 48 L (>60) BUN/Creatinine Ratio 16.4 (9-20) Glucose 104 (80-116) mg/dL Calcium 8.9 (8.6-10.2) mg/dL Magnesium 1.7 L (1.8-2.5) mg/dL Total Bilirubin 0.5 (0.1-1.3) mg/dL AST 15 (5-25) IU/L ALT 14 (12-36) U/L Alkaline Phosphatase 56 (56-112) IU/L Total Protein 7.0 (6.0-8.0) g/dL Albumin 3.2 (3.2-4.6) g/dL Globulin 3.8 g/dL Albumin/Globulin Ratio 0.8 Meds: Medications Discontinued Medications Generic Name Dose Route Start Last Admin Trade Name Freq PRN Reason Stop Dose Admin Sumatriptan Succinate 6 mg 02/27/20 21:41 02/27/20 21:52 Imitrex SUBCUT 02/27/20 21:42 6 mg ONETIME ONE Administration - Radiology Interpretation Free Text/Narrative:: CT scan of head shows no acute intracranial abnormality per the [facility] radiologist. - Re-Assessments/Exams Free Text/Narrative Re-Assessment/Exam: 02/27/20 23:25: The patient's headache is now a 3/10. The patient reports she feels much better. She was sleeping soundly earlier and she appears in no discomfort at present. A re-evaluation of her neurologic exam shows her to be neurologically unchanged and still normal on exam. Her blood pressure is still somewhat elevated and is 160/80. The CT scan of her head was normal and her blood tests were all reassuringly normal. I feel that she is stable for discharge. These headaches appear to be migraine type headaches. She did seem to have a good response to the Imitrex and I will provide her with a prescription for treks tablets that she can take at the onset of her headaches as needed. I h avnathalia also urged her to follow-up with Lovely Solis (her primary provider) within the next 1-2 weeks. Precautions and reasons for return to the emergency department were discussed with the patient while she was in the emergency department and were detailed in the patient's discharge instructions. Departure - Departure Time of Disposition: 23:35 Disposition: Home, Self-Care 01 Condition: Good (Improved) Clinical Impression: Headache Qualifiers: Headache type: unspecified Headache chronicity pattern: acute headache Intractability: not intractable Qualified Code(s): R51.9 - Headache, unspecified Hypertension Qualifiers: Hypertension type: unspecified Qualified Code(s): I10 - Essential (primary) hypertension - Discharge Information Prescriptions: SUMAtriptan [Imitrex] 50 mg PO ASDIRECTED #12 tablet Instructions: Hypertension, Adult, [id number] Referrals: Lovely Kurtz BAND TACKER [Primary Care Provider] - Forms: ED Department Discharge Additional Instructions: Your blood tests were all reassuringly normal. The CT scan of your head showed no acute abnormality. The pattern of your headache is consistent with a migraine-type headache. I have given you a prescription of tablets of the evaluation that we gave you a shot in the emergency department. You can take this medication at the onset of your headache as directed. Your blood pressure was somewhat elevated while in the emergency department. He will need to follow- up with your primary provider in regard to the recurrent headaches and also for rechecking your blood pressure. Back to the emergency department for worsening headache, unrelenting vomiting, localized area of weakness or numbness, neck stiffness or any other concerning sign or symptom. Sepsis Event Note (ED) - Focused Exam Vital Signs: Vital Signs Temp Pulse Resp BP Pulse Ox 02/27/20 22:50 75 16 160/80 H 95 02/27/20 22:35 36.5 C 72 16 156/82 H 95 - My Orders Last 24 Hours: My Active Orders 02/27/20 21:40 Head wo Cont [CT] Stat - Assessment/Plan Last 24 Hours: My Active Orders 02/27/20 21:40 Head wo Cont [CT] Stat
[2020-02-27] MEDS ORDERED: SUMAtriptan 6 MG/0.5 ML SDV SUBCUT ONE (21:41)
[2020-02-27 23:39] VITALS: BP 160/80; PULSE 75
== END 2020-02-27 23:50 | disposition home or self-care (01) ==
LOC: FB.ED 21:10
DX: R51.9 Headache, unspecified (principal); I10 Essential (primary) hypertension; K21.9 Gastro-esophageal reflux disease without esophagitis; E78.5 Hyperlipidemia, unspecified; E11.42 Type 2 diabetes mellitus with diabetic polyneuropathy; Z88.8 Allergy status to other drugs, medicaments and biological substances; Z88.6 Allergy status to analgesic agent; Z88.5 Allergy status to narcotic agent; Z88.2 Allergy status to sulfonamides; Z91.041 Radiographic dye allergy status; Z90.49 Acquired absence of other specified parts of digestive tract; Z90.710 Acquired absence of both cervix and uterus; Z79.899 Other long term (current) drug therapy
CPT/HCPCS: 36415; 70450; 80053; 83735; 85025; 85651; 96372; 99284-25; J3030

== ENCOUNTER 2020-08-02 07:28 | Emergency (ER) | payer MEDICARE, BC ==
--- NOTE | 2020-08-02 07:45 | EDM.PDOC ---
ED HPI GENERAL MEDICAL PROBLEM - General Stated Complaint: HEADACHES Time Seen by Provider: 08/02/20 07:30 Source of Information: Reports: Patient History Limitations: Reports: No Limitations - History of Present Illness INITIAL COMMENTS - FREE TEXT/NARRATIVE: Patient presented to the ED because of headache over the bi frontal area, 8/10, with associated photophobia. there is no nausea or vomiting. She has a history of migraine headache but didn't take her imitrex today. There is no fever, chills, or neck stiffness. L frontal headache Pain Score (Numeric/FACES): 6 L anterior chest Pain Score (Numeric/FACES): 0 - Related Data Allergies Allergy/AdvReac Type Severity Reaction Status Date / Time lisinopril Allergy Severe Edema Verified 08/02/20 07:46 chocolate flavor Allergy Hives Verified 08/02/20 07:46 oxycodone HCl Allergy Cannot Verified 08/02/20 07:46 [From OxyContin] Remember red dye Allergy Itching Verified 08/02/20 07:46 Sulfa (Sulfonamide Allergy Nausea Verified 08/02/20 07:46 Antibiotics) tramadol Allergy Swelling Verified 08/02/20 07:46 Home Meds: Home Meds metFORMIN [Glucophage] 250 mg PO BIDMEALS 04/03/16 [History] ALPRAZolam [Alprazolam] 0.125 mg PO BEDTIME PRN 02/04/18 [History] Alendronate Sodium [Fosamax] 70 mg PO TU 02/04/18 [History] Gabapentin [Neurontin] 100 mg PO BID 02/04/18 [History] Omeprazole 20 mg PO DAILY 02/04/18 [History] rOPINIRole [Requip] 0.25 mg PO BEDTIME 02/04/18 [History] Acetaminophen [Tylenol] 650 mg PO Q6H 08/06/18 [History] Acetaminophen/Diphenhydramine [Tylenol Pm Ex-Strength Caplet] 2 tab PO BEDTIME 08/06/18 [History] Calcium Carbonate/Vitamin D3 [Calcium 600 + Vit D 200] 1 tab PO DAILY 08/06/18 [History] Carboxymethylcellulose Sodium [Refresh Celluvisc] 1 drop EYEBOTH DAILY 08/06/18 [History] Cetirizine [ZyrTEC] 10 mg PO DAILY PRN 08/06/18 [History] Lutein 10 mg PO DAILY 08/06/18 [History] Sodium Chloride/Aloe Vera [Saline Nasal Gel] 1 applic ARMANDO ASDIRECTED PRN 08/06/18 [History] SUMAtriptan [Imitrex] 50 mg PO ASDIRECTED #12 tablet 02/27/20 [Rx] Aspirin 81 mg PO DAILY 08/02/20 [History] Clopidogrel [Plavix] 75 mg PO DAILY 08/02/20 [History] Furosemide [Lasix] 40 mg PO DAILY 08/02/20 [History] Pravastatin Sodium 10 mg PO BEDTIME 08/02/20 [History] Past Medical History HEENT History: Reports: Allergic Rhinitis, Cataract Cardiovascular History: Reports: Heart Murmur, High Cholesterol, Hypertension, Other (See Below) Other Cardiovascular History: varicose veins, hyperlipidemia Gastrointestinal History: Reports: Diverticulosis, GERD 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 Denies: Anticoagulation Therapy - Infectious Disease History Infectious Disease History: Reports: Chicken Pox, Measles, Mumps - Past Surgical History HEENT Surgical History: Reports: Cataract Surgery GI Surgical History: Reports: Appendectomy, Cholecystectomy, Colonoscopy, EGD, Hernia, Abdominal, Hernia Repair/Other Female Surgical History: Reports: Hysterectomy, Other (See Below) Other Female Surgeries/Procedures: BSO, bladder repair Musculoskeletal Surgical History: Reports: Hip Replacement, Knee Replacement, Other (See Below) Other Musculoskeletal Surgeries/Procedures:: Toe fusion, Social & Family History - Family History Family Medical History: No Pertinent Family History - Caffeine Use Caffeine Use: Reports: None - Living Situation & Occupation Occupation: Retired ED ROS GENERAL - Review of Systems Review Of Systems: See Below Constitutional: Reports: No Symptoms HEENT: Reports: No Symptoms Respiratory: Reports: No Symptoms Cardiovascular: Reports: No Symptoms Endocrine: Reports: No Symptoms GI/Abdominal: Reports: No Symptoms : Reports: No Symptoms Musculoskeletal: Reports: No Symptoms Skin: Reports: No Symptoms Neurological: Reports: Headache Psychiatric: Reports: No Symptoms Hematologic/Lymphatic: Reports: No Symptoms Immunologic: Reports: No Symptoms ED EXAM, GENERAL - Physical Exam Exam: See Below Exam Limited By: No Limitations General Appearance: Alert, No Apparent Distress Ears: Normal External Exam, Normal Canal, Hearing Grossly Normal Nose: Normal Inspection, Normal Mucosa, No Blood Throat/Mouth: Normal Inspection, Normal Lips, Normal Teeth Head: Atraumatic, Normocephalic Neck: Normal Inspection, Supple, Non-Tender, Full Range of Motion Respiratory/Chest: No Respiratory Distress, Lungs Clear, Normal Breath Sounds Cardiovascular: Normal Peripheral Pulses, Regular Rate, Rhythm, No Edema, No Gallop, No JVD, No Murmur, No Rub GI/Abdominal: Normal Bowel Sounds, Soft, Non-Tender, No Organomegaly, No Distention, No Abnormal Bruit, No Mass, Pelvis Stable Back Exam: Normal Inspection, Full Range of Motion Extremities: Normal Inspection, Normal Range of Motion, Non-Tender, No Pedal Ed robert, Normal Capillary Refill Neurological: Alert, Oriented, CN II-XII Intact, Normal Cognition, Normal Gait, Normal Reflexes, No Motor/Sensory Deficits Psychiatric: Normal Affect Course - Vital Signs Text/Narrative:: imitrex 6 mg SC x1 Amlodipine 10 mg po x1 Last Recorded V/S: Last Vital Signs Temp 36.6 C 08/02/20 07:28 Pulse 75 08/02/20 08:45 Resp 18 08/02/20 08:45 BP 112/75 08/02/20 08:45 Pulse Ox 99 08/02/20 08:45 - Orders/Labs/Meds Meds: Medications Discontinued Medications Generic Name Dose Route Start Last Admin Trade Name Leeq PRN Reason Stop Dose Admin Amlodipine Besylate 10 mg 08/02/20 07:45 08/02/20 08:05 Amlodipine 10 Mg Tab PO 08/02/20 07:46 10 mg NOW STA Administration Sumatriptan Succinate 6 mg 08/02/20 07:45 08/02/20 08:02 Sumatriptan 6 Mg/0.5 Ml Sdv SUBCUT 08/02/20 07:46 6 mg NOW STA Administration Departure - Departure Time of Disposition: 09:00 Disposition: Home, Self-Care 01 Condition: Good Clinical Impression: Migraine, Hypertension - Discharge Information Instructions: Migraine Headache, [id number], Hypertension, Adult, [id number] Referrals: Lovely Kurtz AUDIO VIDEO REPAIRER [Primary Care Provider] - Forms: ED Department Discharge Additional Instructions: please read discharge instructions on migraine and hypertension take your furosemide when you get home imitrex as directed for your migraine follow up with your doctor with regards of your high blood pressure Sepsis Event Note (ED) - Focused Exam Vital Signs: Vital Signs Temp Pulse Resp BP BP Pulse Ox 08/02/20 08:45 75 18 112/75 99 08/02/20 08:30 75 18 140/120 H 99 08/02/20 08:15 80 18 186/68 H 100 08/02/20 08:05 171/85 H 08/02/20 07:45 80 18 174/72 H 100 08/02/20 07:30 84 17 183/86 H 99 08/02/20 07:28 36.6 C 84 18 188/74 H 100
[2020-08-02] MEDS: SUMAtriptan 6 MG/0.5 ML SDV SUBCUT STA (08:02)
[2020-08-02] MEDS: amLODIPine 10 MG Tab PO STA (08:05)
[2020-08-02 09:37] VITALS: PULSE 75
[2020-08-02 09:38] VITALS: BP 112/75
== END 2020-08-02 09:00 | disposition home or self-care (01) ==
LOC: FB.ED 07:28
DX: G43.909 Migraine, unspecified, not intractable, without status migrainosus (principal); I10 Essential (primary) hypertension; E78.5 Hyperlipidemia, unspecified; K21.9 Gastro-esophageal reflux disease without esophagitis; M19.90 Unspecified osteoarthritis, unspecified site; E11.42 Type 2 diabetes mellitus with diabetic polyneuropathy; G25.81 Restless legs syndrome; Z88.8 Allergy status to other drugs, medicaments and biological substances; Z91.018 Allergy to other foods; Z88.5 Allergy status to narcotic agent; Z88.2 Allergy status to sulfonamides; Z79.82 Long term (current) use of aspirin; Z79.02 Long term (current) use of antithrombotics/antiplatelets; Z79.84 Long term (current) use of oral hypoglycemic drugs; Z79.899 Other long term (current) drug therapy
CPT/HCPCS: 96372; 99283; A9270; J3030

== ENCOUNTER 2020-10-03 18:03 | Emergency (ER) | payer MEDICARE, BC ==
[2020-10-03 18:25] VITALS: PULSE 81
[2020-10-03] MEDS ORDERED: Aspirin 81 MG Tab.Chew PO STA ×2 (18:27→18:54)
[2020-10-03] MEDS ORDERED: traMADol 50 MG Tab PO ONE (18:54)
[2020-10-03] MEDS ORDERED: amLODIPine 10 MG Tab PO STA (19:37)
[2020-10-03 19:49] VITALS: BP 178/65
--- NOTE | 2020-10-03 19:55 | EDM.PDOC ---
ED HPI GENERAL MEDICAL PROBLEM - General Chief Complaint: Chest Pain Stated Complaint: CHEST PAIN Time Seen by Provider: 10/03/20 18:05 Source of Information: Reports: Patient, Family History Limitations: Reports: No Limitations - History of Present Illness INITIAL COMMENTS - FREE TEXT/NARRATIVE: Patient presented to the ED because of left sided chest pain which started last night at about 7 pm. The pain is dull,5/10, and worse with movements. She mowed her lawn yesterday and apparently the pain started hours later. She also c/o headache,took tylenol 500 mg with mild relief. there is no fever,chills,cough/cold symptoms. There is no N/V/D. 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: Acetaminophen Upper & L chest region Pain Score (Numeric/FACES): 5 - Related Data Allergies Allergy/AdvReac Type Severity Reaction Status Date / Time lisinopril Allergy Severe Edema Verified 10/03/20 18:20 chocolate flavor Allergy Hives Verified 10/03/20 18:20 oxycodone HCl Allergy Cannot Verified 10/03/20 18:20 [From OxyContin] Remember red dye Allergy Itching Verified 10/03/20 18:20 Sulfa (Sulfonamide Allergy Nausea Verified 10/03/20 18:20 Antibiotics) Home Meds: Home Meds metFORMIN [Glucophage] 250 mg PO BIDMEALS 04/03/16 [History] ALPRAZolam [Alprazolam] 0.125 mg PO BEDTIME PRN 02/04/18 [History] Alendronate Sodium [Fosamax] 70 mg PO TU 02/04/18 [History] Gabapentin [Neurontin] 100 mg PO BID 02/04/18 [History] Omeprazole 20 mg PO DAILY 02/04/18 [History] rOPINIRole [Requip] 0.25 mg PO BEDTIME 02/04/18 [History] Acetaminophen [Tylenol] 650 mg PO Q6H 08/06/18 [History] Acetaminophen/Diphenhydramine [Tylenol Pm Ex-Strength Caplet] 2 tab PO BEDTIME 08/06/18 [History] Calcium Carbonate/Vitamin D3 [Calcium 600 + Vit D 200] 1 tab PO DAILY 08/06/18 [History] Carboxymethylcellulose Sodium [Refresh Celluvisc] 1 drop EYEBOTH DAILY 08/06/18 [History] Lutein 10 mg PO DAILY 08/06/18 [History] Sodium Chloride/Aloe Vera [Saline Nasal Gel] 1 applic ARMANDO ASDIRECTED PRN 08/06/18 [History] SUMAtriptan [Imitrex] 50 mg PO ASDIRECTED #12 tablet 02/27/20 [Rx] Aspirin 81 mg PO DAILY 08/02/20 [History] Clopidogrel [Plavix] 75 mg PO DAILY 08/02/20 [History] Furosemide [Lasix] 20 mg PO DAILY 08/02/20 [History] Pravastatin Sodium 10 mg PO BEDTIME 08/02/20 [History] Loratadine [Claritin] 10 mg PO DAILY 10/03/20 [History] Metoprolol Succinate [Toprol XL] 25 mg PO DAILY 10/03/20 [History] Past Medical History HEENT History: Reports: Allergic Rhinitis, Cataract Cardiovascular History: Reports: Heart Failure, Heart Murmur, Heart Valve Replacement, High Cholesterol, Hypertension, Other (See Below) Other Cardiovascular History: varicose veins, hyperlipidemia Gastrointestinal History: Reports: Diverticulosis, GERD Genitourinary History: Reports: Urinary Incontinence 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 History: Reports: Other 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 History: Musculoskeletal History: Reports: Arthritis, Osteoarthritis Neurological History: Reports: Neuropathy, Diabetic, Neuropathy, Peripheral, Other (See Below) Other Neuro History: restless leg syndrome, polyneuropathy Psychiatric History: Reports: Anxiety Endocrine/Metabolic History: Reports: Diabetes, Type II Hematologic History: Reports: Anemia, Anticoagulation Therapy - Infectious Disease History Infectious Disease History: Reports: Chicken Pox, Measles, Mumps - Past Surgical History HEENT Surgical History: Reports: Cataract Surgery Cardiovascular Surgical History: Reports: Valve Replacement GI Surgical History: Reports: Appendectomy, Cholecystectomy, Colonoscopy, EGD, Hernia, Abdominal, Hernia Repair/Other Female Surgical History: Reports: Hysterectomy, Other (See Below) Other Female Surgeries/Procedures: BSO, bladder repair Musculoskeletal Surgical History: Reports: Hip Replacement, Knee Replacement, Other (See Below) Other Musculoskeletal Surgeries/Procedures:: Toe fusion, Social & Family History - Family History Family Medical History: No Pertinent Family History - Tobacco Use Tobacco Use Status *Q: Never Tobacco User - Caffeine Use Caffeine Use: Reports: Coffee - Recreational Drug Use Recreational Drug Use: No - Living Situation & Occupation Occupation: Retired ED ROS GENERAL - Review of Systems Review Of Systems: See Below Constitutional: Reports: No Symptoms HEENT: Reports: No Symptoms Respiratory: Reports: Pleuritic Chest Pain Cardiovascular: Reports: Chest Pain Endocrine: Reports: No Symptoms GI/Abdominal: Reports: No Symptoms : Reports: No Symptoms Musculoskeletal: Reports: No Symptoms Skin: Reports: No Symptoms Neurological: Reports: Headache ED EXAM, GENERAL - Physical Exam Exam: See Below Exam Limited By: No Limitations General Appearance: Alert, No Apparent Distress Eye Exam: Bilateral Eye: PERRL Ears: Normal External Exam, Normal Canal Nose: Normal Inspection, Normal Mucosa, No Blood Throat/Mouth: Normal Inspection, Normal Lips Head: Atraumatic, Normocephalic Neck: Normal Inspection, Supple, Non-Tender, Full Range of Motion Respiratory/Chest: No Respiratory Distress, Lungs Clear, Normal Breath Sounds, No Accessory Muscle Use, Chest Non-Tender Cardiovascular: Normal Peripheral Pulses, Regular Rate, Rhythm, No Edema, No Gallop, No JVD, No Murmur, No Rub GI/Abdominal: Normal Bowel Sounds, Soft, Non-Tender, No Organomegaly, No Distention, No Abnormal Bruit, No Mass Back Exam: Normal Inspection, Full Range of Motion Extremities: Normal Inspection, Normal Range of Motion, Non-Tender Neurological: Alert, Oriented, CN II-XII Intact, Normal Cognition, Normal Reflexes, No Motor/Sensory Deficits #1 Interpretation EKG Date: 10/03/20 Time: 18:08 Rhythm: NSR Rate (Beats/Min): 70 [place]: Normal P-Wave: Present QRS: LBBB ST-T: Normal QT: Normal Comparison: Change From Previous EKG EKG Interpretation Comments: NSR LBB PAC's Course - Vital Signs Text/Narrative:: Lab/EKG result was reviewed with patient and her daughter ASA 243 mg PO x1 Tramadol 100 mg PO x1 Amlodipine 10 mg PO x1 Last Recorded V/S: Last Vital Signs Temp 36.8 C 10/03/20 18:03 Pulse 81 10/03/20 18:03 Resp 20 10/03/20 18:03 BP 178/65 H 10/03/20 19:47 Pulse Ox 97 10/03/20 18:03 - Orders/Labs/Meds Orders: Active Orders 24 hr Category Date Time Status EKG 12 Lead [EK] Routine Ther 10/03/20 18:29 Ordered Labs: Laboratory Tests 0510/03/20 10/03/20 Range/Units 18:30 18:30 18:30 WBC 5.4 (3.0-10.3) x10-3/uL RBC 3.80 (3.60-5.20) x10(6)uL Hgb 11.2 L (11.4-15.5) g/dL Hct 33.9 L (34.2-48.2) % MCV 89.1 (76.7-100.5) fL MCH 29.4 (23.9-33.9) pg MCHC 33.0 (31.9-34.8) g/dL RDW 15.0 (12.3-16.5) % Plt Count 348 (151-488) x10(3)uL MPV 7.4 (7.1-12.4) fL Neut % (Auto) 67.6 (30.8-76.2) % Lymph % (Auto) 20.6 (18.4-52.1) % [place] % (Auto) 8.3 (4.4-15.7) % Eos % (Auto) 2.8 (0.6-8.1) % Baso % (Auto) 0.7 (0.2-1.5) % Neut # (Auto) 3.6 (1.5-6.3) x10-3/uL Lymph # (Auto) 1.1 (1.0-4.4) x10-3/uL [place] # (Auto) 0.4 (0.3-1.0) x10-3/uL Eos # (Auto) 0.2 (0.0-0.8) x10-3/uL Baso # (Auto) 0.0 (0.0-0.1) x10-3/uL Sodium 125 L (135-145) mmol/L Potassium 4.2 (3.5-5.3) mmol/L Chloride 90 L (100-110) mmol/L Carbon Dioxide 31 (21-32) mmol/L BUN 17 (7-18) mg/dL Creatinine 1.3 H (0.55-1.02) mg/dL Est Cr Clr Drug Dosing 31.06 mL/min Estimated GFR (MDRD) 39 L (>60) BUN/Creatinine Ratio 13.1 (9-20) Glucose 105 (80-116) mg/dL Calcium 8.0 L (8.6-10.2) mg/dL Total Bilirubin 0.3 (0.1-1.3) mg/dL AST 19 D (5-25) IU/L ALT 15 (12-36) U/L Alkaline Phosphatase 69 (56-112) IU/L Troponin I 11.3 (4.0-60.3) pg/mL Total Protein 7.6 (6.0-8.0) g/dL Albumin 3.2 (3.2-4.6) g/dL Globulin 4.4 g/dL Albumin/Globulin Ratio 0.7 Urine Color (YELLOW) Urine Appearance (CLEAR) Urine pH (5.0-6.5) Ur Specific [place] (1.010-1.025) Urine Protein (NEGATIVE) mg/dL Urine Glucose (UA) (NORMAL) mg/dL Urine Ketones (NEGATIVE) mg/dL Urine Occult Blood (NEGATIVE) Urine Nitrite (NEGATIVE) Urine Bilirubin (NEGATIVE) Urine Urobilinogen (NEGATIVE) mg/dL Ur Leukocyte Esterase (NEGATIVE) Urine RBC (0-5) Urine WBC (0-5) Ur Squamous Epith Cells (NS,R,O) Urine Bacteria (NS) 10/03/20 Range/Units 18:40 WBC (3.0-10.3) x10-3/uL RBC (3.60-5.20) x10(6)uL Hgb (11.4-15.5) g/dL Hct (34.2-48.2) % MCV (76.7-100.5) fL MCH (23.9-33.9) pg MCHC (31.9-34.8) g/dL RDW (12.3-16.5) % Plt Count (151-488) x10(3)uL MPV (7.1-12.4) fL Neut % (Auto) (30.8-76.2) % Lymph % (Auto) (18.4-52.1) % [place] % (Auto) (4.4-15.7) % Eos % (Auto) (0.6-8.1) % Baso % (Auto) (0.2-1.5) % Neut # (Auto) (1.5-6.3) x10-3/uL Lymph # (Auto) (1.0-4.4) x10-3/uL [place] # (Auto) (0.3-1.0) x10-3/uL Eos # (Auto) (0.0-0.8) x10-3/uL Baso # (Auto) (0.0-0.1) x10-3/uL Sodium (135-145) mmol/L Potassium (3.5-5.3) mmol/L Chloride (100-110) mmol/L Carbon Dioxide (21-32) mmol/L BUN (7-18) mg/dL Creatinine (0.55-1.02) mg/dL Est Cr Clr Drug Dosing mL/min Estimated GFR (MDRD) (>60) BUN/Creatinine Ratio (9-20) Glucose (80-116) mg/dL Calcium (8.6-10.2) mg/dL Total Bilirubin (0.1-1.3) mg/dL AST (5-25) IU/L ALT (12-36) U/L Alkaline Phosphatase (56-112) IU/L Troponin I (4.0-60.3) pg/mL Total Protein (6.0-8.0) g/dL Albumin (3.2-4.6) g/dL Globulin g/dL Albumin/Globulin Ratio Urine Color Yellow (YELLOW) Urine Appearance Clear (CLEAR) Urine pH 8.0 H (5.0-6.5) Ur Specific [place] 1.015 (1.010-1.025) Urine Protein Negative (NEGATIVE) mg/dL Urine Glucose (UA) Normal (NORMAL) mg/dL Urine Ketones Negative (NEGATIVE) mg/dL Urine Occult Blood Negative (NEGATIVE) Urine Nitrite Negative (NEGATIVE) Urine Bilirubin Negative (NEGATIVE) Urine Urobilinogen Normal (NEGATIVE) mg/dL Ur Leukocyte Esterase Negative (NEGATIVE) Urine RBC 0-5 (0-5) Urine WBC 0-5 (0-5) Ur Squamous Epith Cells Few H (NS,R,O) Urine Bacteria Few H (NS) Meds: Medications Discontinued Medications Generic Name Dose Route Start Last Admin Trade Name Freq PRN Reason Stop Dose Admin Amlodipine Besylate 10 mg 10/03/20 19:37 10/03/20 19:47 Amlodipine 10 Mg Tab PO 10/03/20 19:38 10 mg NOW STA Administration Aspirin 324 mg 10/03/20 18:27 10/03/20 19:01 Aspirin 81 Mg Tab.Chew PO 10/03/20 18:28 Not Given NOW STA Aspirin 243 mg 10/03/20 18:54 10/03/20 19:00 Aspirin 81 Mg Tab.Chew PO 10/03/20 18:55 243 mg NOW STA Administration Tramadol HCl 100 mg 10/03/20 18:54 10/03/20 19:01 Tramadol 50 Mg Tab PO 10/03/20 18:55 100 mg ONETIME ONE Administration Departure - Departure Time of Disposition: 20:15 Disposition: Home, Self-Care 01 Condition: Good Clinical Impression: Chest wall pain, Headache, Hypertensive crisis Instructions: Migraine Headache, [id number], Chest Wall Pain, [id number], Nonspecific Chest Pain, Adult, [id number], Hypertension, Adult, [id number] Referrals: Lovely Kurtz SENIOR RADIATION THERAPIST [Primary Care Provider] - Forms: ED Department Discharge Additional Instructions: Please read discharge instructions on hypertensive crisis,headache,chest wall pain, headache Continue you medications Take tylenol 1000 mg every 8 hours as needed for pain/headache Follow up as needed Sepsis Event Note (ED) - Evaluation Sepsis Screening Result: No Definite Risk - Focused Exam Vital Signs: Vital Signs Temp Pulse Resp BP BP Pulse Ox 10/03/20 19:47 178/65 H 10/03/20 18:03 36.8 C 81 20 168/108 H 97 - My Orders Last 24 Hours: My Active Orders 10/03/20 18:29 EKG 12 Lead [EK] Routine - Assessment/Plan Last 24 Hours: My Active Orders 10/03/20 18:29 EKG 12 Lead [EK] Routine
== END 2020-10-03 20:25 | disposition home or self-care (01) ==
LOC: FB.ED 18:03
DX: I16.9 Hypertensive crisis, unspecified (principal); R51.9 Headache, unspecified; E78.5 Hyperlipidemia, unspecified; I11.0 Hypertensive heart disease with heart failure; I50.9 Heart failure, unspecified; K21.9 Gastro-esophageal reflux disease without esophagitis; M19.90 Unspecified osteoarthritis, unspecified site; E11.42 Type 2 diabetes mellitus with diabetic polyneuropathy; G25.81 Restless legs syndrome; Z91.018 Allergy to other foods; Z88.8 Allergy status to other drugs, medicaments and biological substances; Z88.5 Allergy status to narcotic agent; Z88.2 Allergy status to sulfonamides; Z79.82 Long term (current) use of aspirin; Z79.84 Long term (current) use of oral hypoglycemic drugs; Z79.02 Long term (current) use of antithrombotics/antiplatelets
CPT/HCPCS: 36415; 80053; 81001; 84484; 85025; 93005; 99285-25; A9270-GY

== ENCOUNTER 2020-11-15 11:53 | Inpatient (IN) | payer MEDICARE, BC ==
[2020-11-15] MEDS ORDERED: SUMAtriptan 50 MG Tab PO PRN (15:15)
[2020-11-15] MEDS ORDERED: oxyCODONE 5 MG Tab PO PRN (15:19)
[2020-11-15] MEDS ORDERED: Acetaminophen 500 MG Tab PO SCH (15:30)
[2020-11-15] MEDS ORDERED: Ibuprofen 200 MG Tab PO SCH (15:30)
[2020-11-15] MEDS: Acetaminophen 500 MG Tab PO SCH ×2 (16:10→21:48)
[2020-11-15] MEDS: Ibuprofen 200 MG Tab PO SCH ×2 (16:10→21:47)
--- NOTE | 2020-11-15 17:17 | PCM.HP.2 ---
H&P History of Present Illness - General Date of Service: 11/15/20 Admit Problem/Dx: Admission Diagnosis/Problem Admission Diagnosis/Problem Rehabilitation therapy Source of Information: Patient, Old Records, Provider - History of Present Illness Initial Comments - Free Text/Narative: Liya presents for swing bed admission for rehab services. She had a mechanical fall on 11/10 sustaining right wrist fracture and right hip fracture. 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 History of CHF, Type 2 DM with polyneuropathy, pulmonary hypertension, CKD, & GERD. She had right hip hemiarthroplasty & closed treatment of right distal radial fracture on 11/11. She has had hyponatremia during acute hospital stay, [facility] reviewed her records, found that this was a chronic issue, suspected SIADH and started sodium tablets 1 g tid on discharge. Her pain was treated with Fentanyl and Morphine, had Tylenol PM at night with Xanax. States Tylenol PM helps better. She is to have Lovenox 40 mg daily x 28 days, she received 4 doses in [place]. Weight bearing as tolerated on right hip, NWB to right arm, FWW with platform. She had suspected UTI received Rocephin IV then discharged with Keflex. Right Arm Pain Score (Numeric/FACES): 4 - Related Data Allergies/Adverse Reactions: Allergies Allergy/AdvReac Type Severity Reaction Status Date / Time lisinopril Allergy Severe Edema Verified 11/15/20 16:26 chocolate flavor Allergy Hives Verified 11/15/20 16:26 red dye Allergy Itching Verified 11/15/20 16:26 sulfamethoxazole Allergy Nausea Verified 11/15/20 16:26 [From ] trimethoprim [From ] Allergy Nausea Verified 11/15/20 16:26 Home Medications: Home Meds metFORMIN [Glucophage] 250 mg PO BIDMEALS 04/03/16 [History] Alendronate Sodium [Fosamax] 70 mg PO TU 02/04/18 [History] Gabapentin [Neurontin] 100 mg PO BID@0900,1300 02/04/18 [History] Omeprazole 20 mg PO ACBREAKFAST 02/04/18 [History] rOPINIRole [Requip] 0.25 mg PO BEDTIME 02/04/18 [History] Acetaminophen/Diphenhydramine [Tylenol Pm Ex-Strength Caplet] 1 tab PO BEDTIME PRN 08/06/18 [History] Calcium Carbonate/Vitamin D3 [Calcium 600 + Vit D 200] 1 tab PO BID 08/06/18 [History] Carboxymethylcellulose Sodium [Refresh Celluvisc] 1 drop EYEBOTH DAILY 08/06/18 [History] Lutein 10 mg PO DAILY 08/06/18 [History] SUMAtriptan [Imitrex] 50 mg PO ASDIRECTED #12 tablet 02/27/20 [Rx] Aspirin 81 mg PO DAILY 08/02/20 [History] Pravastatin Sodium 10 mg PO BEDTIME 08/02/20 [History] Metoprolol Succinate [Toprol XL] 25 mg PO DAILY 10/03/20 [History] ALPRAZolam [Xanax] 0.125 mg PO BEDTIME PRN 11/15/20 [History] Acetaminophen [Acetaminophen ER] 650 mg PO Q6H PRN 11/15/20 [History] Cranberry Conc/Ascorbic Acid [Cranberry Plus Vitamin C Sftgl] 1 cap PO DAILY 11/15/20 [History] Enoxaparin [Lovenox] 40 mg SQ Q24H 11/15/20 [History] Fluticasone Propionate [Flonase] 2 spray ARMANDO DAILY 11/15/20 [History] Furosemide 20 mg PO DAILY 11/15/20 [History] Gabapentin [Neurontin] 200 mg PO BEDTIME 11/15/20 [History] Glucosam/Chond/Collagen/Hyalur [Glucosamine Chondroitin] 1 cap PO DAILY 11/15/20 [History] Loratadine 10 mg PO DAILY 11/15/20 [History] Multivit-Min/FA/Lycopene/Lut [Senior Tabs] 1 tab PO DAILY 11/15/20 [History] Sodium Chloride 1 g PO TIDMEALS 11/15/20 [History] Past Medical History HEENT History: Reports: Allergic Rhinitis, Cataract Cardiovascular History: Reports: Heart Failure, Heart Murmur, Heart Valve Replacement, High Cholesterol, Hypertension, Other (See Below) Other Cardiovascular History: varicose veins, hyperlipidemia Respiratory History: Reports: None Gastrointestinal History: Reports: Diverticulosis, GERD Genitourinary History: Reports: Urinary Incontinence [employer] History: Reports: Other OB/BYN History: Musculoskeletal History: Reports: Arthritis, Osteoarthritis Neurological History: Reports: Neuropathy, Diabetic, Neuropathy, Peripheral, Other (See Below) Other Neuro History: restless leg syndrome, polyneuropathy Psychiatric History: Reports: Anxiety Endocrine/Metabolic History: Reports: Diabetes, Type II Hematologic History: Reports: Anemia, Anticoagulation Therapy Dermatologic History: Reports: None - Infectious Disease History Infectious Disease History: Reports: Chicken Pox, Measles, Mumps - Past Surgical History HEENT Surgical History: Reports: Cataract Surgery Cardiovascular Surgical History: Reports: Valve Replacement Respiratory Surgical History: Reports: None GI Surgical History: Reports: Appendectomy, Cholecystectomy, Colonoscopy, EGD, Hernia, Abdominal, Hernia Repair/Other Female Surgical History: Reports: Hysterectomy, Other (See Below) Other Female Surgeries/Procedures: BSO, bladder repair Endocrine Surgical History: Reports: None Musculoskeletal Surgical History: Reports: Hip Replacement, Knee Replacement, Other (See Below) Other Musculoskeletal Surgeries/Procedures:: Toe fusion, right total hip hemiarthroplasty Dermatological Surgical History: Reports: None Social & Family History - Family History Family Medical History: No Pertinent Family History - Tobacco Use Tobacco Use Status *Q: Never Tobacco User Second Hand Smoke Exposure: No - Caffeine Use Caffeine Use: Reports: Coffee, Tea - Recreational Drug Use Recreational Drug Use: No - Living Situation & Occupation Occupation: Retired H&P Review of Systems - Review of Systems: Review Of Systems: See Below General: Reports: No Symptoms HEENT: Reports: No Symptoms Pulmonary: Reports: No Symptoms Cardiovascular: Reports: No Symptoms Gastrointestinal: Reports: No Symptoms Genitourinary: Reports: No Symptoms Musculoskeletal: Reports: Back Pain Skin: Reports: No Symptoms Psychiatric: Reports: No Symptoms Neurological: Reports: No Symptoms Hematologic/Lymphatic: Reports: Anemia Exam - Exam Exam: See Below - Vital Signs Vital Signs: Last Vital Signs Temp 98.2 F 11/15/20 14:10 Pulse 80 11/15/20 14:10 Resp 20 11/15/20 14:10 BP 163/74 H 11/15/20 14:10 Pulse Ox 98 11/15/20 14:10 Weight: 163 lb 1.6 oz - Exam General: Alert, Oriented, Cooperative HEENT: PERRLA, Conjunctiva Clear, EOMI, Mucosa Moist & Mccloud. No: Hearing Intact Neck: Trachea Midline Lungs: Clear to Auscultation, Normal Respiratory Effort Cardiovascular: Regular Rate, Regular Rhythm GI/Abdominal Exam: Normal Bowel Sounds, Soft, Non-Tender, No Distention Extremities: Pedal Edema (trace BLE, TEDS in place), Other (dressing to right hip; cast to RUE) Peripheral Pulses: 2+: Radial (L), Posterior Tibial (L), Posterior Tibial (R), Dorsalis Pedis (L), Dorsalis Pedis (R) Skin: Ecchymosis (scattered) Neurological: Cranial Nerves Intact, Normal Speech Sepsis Event Note - Evaluation Sepsis Screening Result: No Definite Risk - Focused Exam Vital Signs: Vital Signs Temp Pulse Resp BP Pulse Ox Pulse Ox 11/15/20 14:10 98.2 F 80 20 163/74 H 98 98 *Q Meaningful Use (ADM) - VTE *Q VTE Mechanical Contraindications *Q: At Risk for Falls - VTE Risk Assess *Q Each Risk Factor Represents 1 Point: History of prior major surgery less than 1 month Total Score 1 Point Risk Factors: 1 Each Risk Factor Represents 2 Points: Arthroscopic surgery Total Score 2 Point Risk Factors: 2 Each Risk Factor Represents 3 Points: Age 75 Years or Greater Total Score 3 Point Risk Factors: 3 Each Risk Factor Represents 5 Points: Hip, Pelvis or Leg Fracture, Less than 1 month Total Score 5 Point Risk Factors: 5 Venous Thromboembolism Risk Factor Score *Q: 11 - Problem List (1) History of right hip hemiarthroplasty SNOMED Code(s): 198945291 ICD Code: Z96.641 - PRESENCE OF RIGHT ARTIFICIAL HIP JOINT Status: Acute Current Visit: Yes Onset Date: ~11/11/20 (2) Fracture of right distal radius SNOMED Code(s): 819417820 ICD Code: S52.501A - UNSP FRACTURE OF THE LOWER END OF RIGHT RADIUS, INIT Status: Acute Current Visit: Yes Onset Date: ~11/10/20 (3) UTI, Urinary tract infectious disease SNOMED Code(s): 18276024 ICD Code: N39.0 - URINARY TRACT INFECTION, SITE NOT SPECIFIED Status: Acute Current Visit: No (4) Type 2 diabetes mellitus SNOMED Code(s): 63825398 ICD Code: E11.9 - TYPE 2 DIABETES MELLITUS WITHOUT COMPLICATIONS Status: Chronic Current Visit: Yes (5) CHF (congestive heart failure) SNOMED Code(s): 28951236 ICD Code: I50.9 - HEART FAILURE, UNSPECIFIED Status: Chronic Current Visit: Yes (6) Chronic hyponatremia SNOMED Code(s): 93888604 ICD Code: E87.1 - HYPO-OSMOLALITY AND HYPONATREMIA Status: Chronic Current Visit: Yes (7) Pulmonary hypertension SNOMED Code(s): 62136223 ICD Code: I27.20 - PULMONARY HYPERTENSION, UNSPECIFIED Status: Chronic Current Visit: Yes (8) CKD (chronic kidney disease) SNOMED Code(s): 157046153 ICD Code: N18.9 - CHRONIC KIDNEY DISEASE, UNSPECIFIED Status: Chronic Current Visit: Yes (9) GERD (gastroesophageal reflux disease) SNOMED Code(s): 140165085 ICD Code: K21.9 - GASTRO-ESOPHAGEAL REFLUX DISEASE WITHOUT ESOPHAGITIS Status: Chronic Current Visit: Yes (10) S/p TAVR (transcatheter aortic valve replacement), bioprosthetic SNOMED Code(s): 88624045546705, 78168304335914 ICD Code: Z95.3 - PRESENCE OF XENOGENIC HEART VALVE Status: Chronic Current Visit: Yes Onset Date: ~07/24/20 (11) Hypertension SNOMED Code(s): 96328447 ICD Code: I10 - ESSENTIAL (PRIMARY) HYPERTENSION Status: Chronic Current Visit: No Problem List Initiated/Reviewed/Updated: Yes Orders Last 24hrs: Active Orders 24 hr Category Date Time Status Patient Status [ADT] Routine ADT 11/15/20 15:08 Active Height and Weight [RC] .[id number] Care 11/15/20 15:08 Active Oxygen Therapy [RC] PRN Care 11/15/20 15:08 Active VTE/DVT Education [RC] Per Unit Routine Care 11/15/20 15:08 Active Vital Signs [RC] PER UNIT ROUTINE Care 11/15/20 15:08 Active OT Evaluation and Treatment [CONS] Routine Cons 11/15/20 15:08 Active PT Evaluation and Treatment [CONS] Routine Cons 11/15/20 15:08 Active Regular Diet [DIET] Diet 11/16/20 Lunch Active BASIC METABOLIC PANEL,BMP [CHEM] Routine Lab 11/16/20 06:00 Ordered ALPRAZolam [Xanax] Med 11/15/20 15:14 Active 0.125 mg PO BEDTIME PRN Acetaminophen [Tylenol Extra Strength] Med 11/15/20 16:00 Active 500 mg PO Q6H Acetaminophen/Diphenhydramine [Tylenol PM Extra Med 11/15/20 15:14 Active Strength] 1 tab PO BEDTIME PRN Ascorbic Acid [Vitamin C] Med 11/16/20 09:00 Active 1,000 mg PO DAILY Aspirin Med 11/16/20 09:00 Active 81 mg PO DAILY Calcium Carbonate [Oyster Shell Calcium] Med 11/15/20 21:00 Active 500 mg PO BID Carboxymethylcellulose Sodium [Refresh Celluvisc] Med 11/16/20 09:00 Active 0 each EYEBOTH DAILY Chondroitin/Glucosamine [Glucosamine-Chondroitin 500- Med 11/16/20 09:00 Active 400 Capsule] 1 cap PO DAILY Enoxaparin [Lovenox] Med 11/15/20 21:00 Active 40 mg SUBCUT Q24H Fluticasone Propionate [Flonase] Med 11/16/20 09:00 Active 0 gm ARMANDO DAILY Furosemide [Lasix] Med 11/16/20 09:00 Active 20 mg PO DAILY Gabapentin [Neurontin] Med 11/16/20 09:00 Active 100 mg PO BID@0900,1300 Gabapentin [Neurontin] Med 11/15/20 21:00 Active 200 mg PO BEDTIME Ibuprofen [Motrin] Med 11/15/20 16:00 Active 200 mg PO Q6H Loratadine [Claritin] Med 11/16/20 09:00 Active 10 mg PO DAILY Lutein Med 11/16/20 09:00 Active 10 mg PO DAILY Metoprolol Succinate [Toprol XL] Med 11/16/20 09:00 Active 25 mg PO DAILY Multivitamins w-Iron/Ca/FA/Min [Thera M Plus] Med 11/16/20 09:00 Active 1 tab PO DAILY Pantoprazole [ProTONIX] Med 11/16/20 07:30 Active 40 mg PO ACBREAKFAST Pravastatin [Pravachol] Med 11/15/20 21:00 Active 10 mg PO BEDTIME SUMAtriptan [Imitrex] Med 11/15/20 15:15 Active 50 mg PO ASDIRECTED PRN Sodium Chloride Med 11/15/20 18:00 Active 1 gm PO TIDMEALS Zinc Sulfate [Zincate] Med 11/16/20 09:00 Active 220 mg PO DAILY metFORMIN [Glucophage] Med 11/15/20 18:00 Active 250 mg PO BIDMEALS oxyCODONE Med 11/15/20 15:19 Active 2.5 mg PO Q6H PRN rOPINIRole [Requip] Med 11/15/20 21:00 Active 0.25 mg PO BEDTIME Antiembolic Hose [OM.PC] Per Unit Routine Oth 11/15/20 15:12 Ordered Resuscitation Status Routine Resus Stat 11/15/20 15:08 Ordered Medication Orders Acetaminophen (Acetaminophen 500 Mg Tab) 500 mg PO Q6H [facility] Last Admin: 11/15/20 16:10 Dose: 500 mg Documented by: LISBET Acetaminophen/Diphenhydramine HCl (Acetaminophen/Diphenhydramine 500-25 Mg Tab) 1 tab PO BEDTIME PRN PRN Reason: Sleep Alprazolam (Alprazolam 0.25 Mg Tab) 0.125 mg PO BEDTIME PRN PRN Reason: Anxiety Artificial Tears (Carboxymethylcellulose Sodium 1% Ophth Gel 0.4 Ml Ud Box Of 30) 0 each EYEBOTH DAILY [facility] Ascorbic Acid (Ascorbic Acid 500 Mg Tab) 1,000 mg PO DAILY [facility] Aspirin (Aspirin 81 Mg Tab.Chew) 81 mg PO DAILY [facility] Calcium Carbonate/Glycine (Calcium Carbonate 500 Mg Tablet) 500 mg PO BID [facility] Enoxaparin Sodium (Enoxaparin 40 Mg/0.4 Ml Syringe) 40 mg SUBCUT Q24H JOHN Stop: 12/09/20 21:01 Fluticasone Propionate (Fluticasone Propionate Nasal [place] 16 Gm Bottle) 0 gm ARMANDO DAILY [facility] Furosemide (Furosemide 20 Mg Tab) 20 mg PO DAILY [facility] Gabapentin (Gabapentin 100 Mg Cap) 200 mg PO BEDTIME [facility] Gabapentin (Gabapentin 100 Mg Cap) 100 mg PO BID@0900,1300 [facility] Glucosamine/Chondroitin (Chondroitin/Glucosamine Cap) 1 cap PO DAILY [facility] Ibuprofen (Ibuprofen 200 Mg Tab) 200 mg PO Q6H [facility] Last Admin: 11/15/20 16:10 Dose: 200 mg Documented by: LISBET Loratadine (Loratadine 10 Mg Tab) 10 mg PO DAILY [facility] Lutein (Lutein 10 Mg Tab) 10 mg PO DAILY [facility] Metformin HCl (Metformin 500 Mg Tab) 250 mg PO BIDMEALS [facility] Metoprolol Succinate (Metoprolol Succinate 25 Mg Tab.Er) 25 mg PO DAILY [facility] Multivitamins/Minerals (Multivitamins With Iron/Calcium/Folic Acid/Minerals Tab) 1 tab PO DAILY JOHN Oxycodone HCl (Oxycodone 5 Mg Tab) 2.5 mg PO Q6H PRN PRN Reason: Breakthrough Pain Pantoprazole Sodium (Pantoprazole 40 Mg Tab.Cr) 40 mg PO ACBREAKFAST JOHN Pravastatin Sodium (Pravastatin 20 Mg Tab) 10 mg PO BEDTIME JOHN Ropinirole HCl (Ropinirole 0.5 Mg Tab) 0.25 mg PO BEDTIME JOHN Sodium Chloride (Sodium Chloride 1 Gm Tab) 1 gm PO TIDMEALS JOHN Sumatriptan Succinate (Sumatriptan 50 Mg Tab) 50 mg PO ASDIRECTED PRN PRN Reason: HEADACHE Zinc Sulfate (Zinc Sulfate 220 Mg Cap) 220 mg PO DAILY JOHN Assessment/Plan Comment:: 1. Admit to swing bed for rehab services for s/p right hemiarthroplasty, right distal radial fracture. 2. S/p right hemiarthroplasty, right distal radial fracture: Dressing change in 5 days. PT/OT evaluate & treat. Weight bearing as tolerated right hip, NWB right arm, FWW with platform. Vitamin C 1000 mg daily, Zinc 220 mg daily. Ensure high protein bid. Home calcium, MTV, Vitamin D continued. Appt: November 23 at 1130a, [facility]. 3. UTI: Dr Meza had stated she would be discharged with Keflex in provider handoff, also in her discharge summary but on discharge medication list was not present. Will check with [facility] tomorrow to see if she completed antibiotic course. 4. DIET: Regular. 5. ACTIVITY: up with assistance & to chair. Weight bearing as tolerated for R ight hip, NWB right arm. 6. DVT prophylaxis: Lovenox 40 mg SQ bedtime x 24 days. 7. CODE STATUS: FULL. 8. Discharge planning: lives independently in own home, discharge once meets therapy goals. - Mortality Measure Prognosis:: Poor
[2020-11-15] MEDS: metFORMIN 500 MG Tab PO SCH (17:36)
[2020-11-15] MEDS: Sodium Chloride 1 GM Tab PO SCH (17:36)
[2020-11-15] MEDS: Enoxaparin 40 MG/0.4 ML Syringe SUBCUT SCH (20:19)
[2020-11-15] MEDS: Gabapentin 100 MG Cap PO SCH (20:20)
[2020-11-15] MEDS: Pravastatin 20 MG Tab PO SCH (20:22)
[2020-11-15] MEDS: Calcium Carbonate 500 MG Tablet PO SCH (20:23)
[2020-11-15] MEDS: ALPRAZolam 0.25 MG Tab PO PRN (20:29)
[2020-11-15] MEDS ORDERED: rOPINIRole 0.5 MG Tab PO SCH (21:00)
[2020-11-16] MEDS: Acetaminophen 500 MG Tab PO SCH ×4 (04:12→21:15)
[2020-11-16] MEDS: Ibuprofen 200 MG Tab PO SCH ×4 (04:12→21:14)
[2020-11-16] MEDS: Pantoprazole 40 MG Tab.CR PO SCH (06:40)
[2020-11-16] MEDS ORDERED: Non-Formulary Medication 1 Each (Cranberry Conc/Ascorbic Acid [Cranberry Plus Vitamin C Sf PO SCH (09:00)
[2020-11-16] MEDS: Calcium Carbonate 500 MG Tablet PO SCH ×2 (09:42→20:23)
[2020-11-16] MEDS: Sodium Chloride 1 GM Tab PO SCH ×3 (09:43→17:51)
[2020-11-16] MEDS: metFORMIN 500 MG Tab PO SCH ×2 (09:43→17:50)
[2020-11-16] MEDS: Furosemide 20 MG Tab PO SCH (09:44)
[2020-11-16] MEDS: Fluticasone Propionate Nasal Spray 16 GM Bottle NAS SCH (09:44)
[2020-11-16] MEDS: Aspirin 81 MG Tab.Chew PO SCH (09:44)
[2020-11-16] MEDS: Chondroitin/Glucosamine Cap PO SCH (09:44)
[2020-11-16] MEDS: Loratadine 10 MG Tab PO SCH (09:44)
[2020-11-16] MEDS: Carboxymethylcellulose Sodium 1% Ophth Gel 0.4 ML UD Box of 30 EYEBOTH SCH (09:45)
[2020-11-16] MEDS: Ascorbic Acid 500 MG Tab PO SCH (09:46)
[2020-11-16] MEDS: Metoprolol Succinate 25 MG Tab.ER PO SCH (09:46)
[2020-11-16] MEDS: Zinc Sulfate 220 MG Cap PO SCH (09:46)
[2020-11-16] MEDS: Multivitamins with Iron/Calcium/Folic Acid/Minerals Tab PO SCH (09:46)
[2020-11-16] MEDS: Gabapentin 100 MG Cap PO SCH ×3 (09:51→20:22)
[2020-11-16] MEDS: Enoxaparin 40 MG/0.4 ML Syringe SUBCUT SCH (20:22)
[2020-11-16] MEDS: Pravastatin 20 MG Tab PO SCH (20:23)
[2020-11-16] MEDS ORDERED: rOPINIRole 0.5 MG Tab PO SCH (21:00)
[2020-11-17] MEDS: Acetaminophen/Diphenhydramine 500-25 MG Tab PO PRN (00:04)
[2020-11-17] MEDS: ALPRAZolam 0.25 MG Tab PO PRN ×2 (00:04→18:52)
[2020-11-17] MEDS: Acetaminophen 500 MG Tab PO SCH ×4 (02:59→21:03)
[2020-11-17] MEDS: Ibuprofen 200 MG Tab PO SCH ×4 (02:59→21:04)
[2020-11-17] MEDS: Pantoprazole 40 MG Tab.CR PO SCH (06:38)
[2020-11-17] MEDS ORDERED: rOPINIRole 1 MG Tab PO PRN (08:49)
[2020-11-17] MEDS: Carboxymethylcellulose Sodium 1% Ophth Gel 0.4 ML UD Box of 30 EYEBOTH SCH (08:59)
[2020-11-17] MEDS: Ascorbic Acid 500 MG Tab PO SCH (09:00)
[2020-11-17] MEDS: Aspirin 81 MG Tab.Chew PO SCH (09:00)
[2020-11-17] MEDS: Loratadine 10 MG Tab PO SCH (09:00)
[2020-11-17] MEDS: Furosemide 20 MG Tab PO SCH (09:00)
[2020-11-17] MEDS: Calcium Carbonate 500 MG Tablet PO SCH ×2 (09:00→21:04)
[2020-11-17] MEDS: Sodium Chloride 1 GM Tab PO SCH ×3 (09:01→18:06)
[2020-11-17] MEDS: Chondroitin/Glucosamine Cap PO SCH (09:02)
[2020-11-17] MEDS: Multivitamins with Iron/Calcium/Folic Acid/Minerals Tab PO SCH (09:02)
[2020-11-17] MEDS: metFORMIN 500 MG Tab PO SCH ×2 (09:02→18:06)
[2020-11-17] MEDS: Zinc Sulfate 220 MG Cap PO SCH (09:03)
[2020-11-17] MEDS: Metoprolol Succinate 25 MG Tab.ER PO SCH (09:03)
[2020-11-17] MEDS: Fluticasone Propionate Nasal Spray 16 GM Bottle NAS SCH (09:29)
[2020-11-17] MEDS: Gabapentin 100 MG Cap PO SCH ×3 (09:34→21:04)
[2020-11-17] MEDS: rOPINIRole 1 MG Tab PO PRN ×2 (10:10→22:13)
--- NOTE | 2020-11-17 11:36 | PN ---
DATE SEEN: 11/17/2020 HISTORY OF PRESENT ILLNESS: Liya Hubbard is a delightful 80-year-old female seen today for review. She was transferred after sustaining a fall on 03/13. She had resulted in a right forearm fracture, and a right hip fracture. She had more recent TAVR bioprosthetic valve placement on 07/24/2020. Medications were reviewed and appropriate. Nights have been a bit difficult. Her legs have been restless. Discussed options, Requip 0.5 at bedtime, inadequate, requests p.r.n., change to 1 mg. Anxious, irritable, and unsettled; back pain primary issue. We will make some changes to alprazolam 0.25 t.i.d. p.r.n. Otherwise, doing well. Active with therapy. Would like to be walking to the bathroom without the assistance of nursing staff. LABORATORY STUDIES: 11/16/2020; sodium 136, potassium 4.2, chloride 100, creatinine 0.8, BUN 16, GFR greater than 60. OBJECTIVE: VITAL SIGNS: 36.6, 164/85, 16, 96. Weight 73.981 kg, height 1.63 m. GENERAL: Appears comfortable. NECK: Benign. Thyroid small. CHEST: On auscultation, clear in all lung dickson. HEART: No ectopy or murmur. ABDOMEN: Benign. EXTREMITIES: Right cast in good condition. Good peripheral pulses. Sensation intact. Surgical wound, right hip intact. ASSESSMENT: Right hip fracture, right wrist fracture. PLAN: Rehab care intervention and treatment as appropriate. We will change Requip from 0.5 at bedtime to 1 mg at bedtime p.r.n., alprazolam 0.25 t.i.d., reminder that oxycodone is available for breakthrough pain. /[id number] /PERFECTO
[2020-11-17] MEDS: Pravastatin 20 MG Tab PO SCH (21:04)
[2020-11-17] MEDS: Enoxaparin 40 MG/0.4 ML Syringe SUBCUT SCH (21:05)
[2020-11-18] MEDS: Acetaminophen/Diphenhydramine 500-25 MG Tab PO PRN (00:32)
[2020-11-18] MEDS: ALPRAZolam 0.25 MG Tab PO PRN ×2 (00:33→22:41)
[2020-11-18] MEDS: Ibuprofen 200 MG Tab PO SCH ×4 (03:10→22:42)
[2020-11-18] MEDS: Acetaminophen 500 MG Tab PO SCH ×4 (03:10→22:42)
[2020-11-18] MEDS: Pantoprazole 40 MG Tab.CR PO SCH (06:49)
[2020-11-18] MEDS: metFORMIN 500 MG Tab PO SCH ×2 (07:56→18:41)
[2020-11-18] MEDS: Sodium Chloride 1 GM Tab PO SCH ×3 (07:57→18:42)
[2020-11-18] MEDS: Fluticasone Propionate Nasal Spray 16 GM Bottle NAS SCH (08:43)
[2020-11-18] MEDS: Loratadine 10 MG Tab PO SCH (08:48)
[2020-11-18] MEDS: Chondroitin/Glucosamine Cap PO SCH (08:48)
[2020-11-18] MEDS: Calcium Carbonate 500 MG Tablet PO SCH ×2 (08:48→22:43)
[2020-11-18] MEDS: Furosemide 20 MG Tab PO SCH (08:48)
[2020-11-18] MEDS: Aspirin 81 MG Tab.Chew PO SCH (08:48)
[2020-11-18] MEDS: Carboxymethylcellulose Sodium 1% Ophth Gel 0.4 ML UD Box of 30 EYEBOTH SCH (08:49)
[2020-11-18] MEDS: Ascorbic Acid 500 MG Tab PO SCH (08:49)
[2020-11-18] MEDS: Multivitamins with Iron/Calcium/Folic Acid/Minerals Tab PO SCH (08:49)
[2020-11-18] MEDS: Metoprolol Succinate 25 MG Tab.ER PO SCH (08:49)
[2020-11-18] MEDS: Zinc Sulfate 220 MG Cap PO SCH (08:49)
[2020-11-18] MEDS: Gabapentin 100 MG Cap PO SCH ×3 (08:56→22:43)
[2020-11-18] MEDS: rOPINIRole 1 MG Tab PO SCH ×2 (15:09→22:43)
[2020-11-18] MEDS: traMADol 50 MG Tab PO SCH (22:42)
[2020-11-18] MEDS: Enoxaparin 40 MG/0.4 ML Syringe SUBCUT SCH (22:44)
[2020-11-19] MEDS: Ibuprofen 200 MG Tab PO SCH ×4 (03:41→23:15)
[2020-11-19] MEDS: Pantoprazole 40 MG Tab.CR PO SCH (06:57)
[2020-11-19] MEDS: metFORMIN 500 MG Tab PO SCH ×2 (08:26→17:50)
[2020-11-19] MEDS: Calcium Carbonate 500 MG Tablet PO SCH ×2 (08:27→23:15)
[2020-11-19] MEDS: Acetaminophen 500 MG Tab PO SCH (08:27)
[2020-11-19] MEDS: Ascorbic Acid 500 MG Tab PO SCH (08:27)
[2020-11-19] MEDS: Sodium Chloride 1 GM Tab PO SCH ×3 (08:28→17:52)
[2020-11-19] MEDS: Aspirin 81 MG Tab.Chew PO SCH (08:28)
[2020-11-19] MEDS: Multivitamins with Iron/Calcium/Folic Acid/Minerals Tab PO SCH (08:28)
[2020-11-19] MEDS: Furosemide 20 MG Tab PO SCH (08:28)
[2020-11-19] MEDS: Fluticasone Propionate Nasal Spray 16 GM Bottle NAS SCH (08:29)
[2020-11-19] MEDS: Carboxymethylcellulose Sodium 1% Ophth Gel 0.4 ML UD Box of 30 EYEBOTH SCH (08:30)
[2020-11-19] MEDS: rOPINIRole 1 MG Tab PO SCH ×3 (08:31→23:17)
[2020-11-19] MEDS: Metoprolol Succinate 25 MG Tab.ER PO SCH (08:31)
[2020-11-19] MEDS: Gabapentin 100 MG Cap PO SCH ×3 (08:40→23:17)
[2020-11-19] MEDS ORDERED: Loratadine 10 MG Tab PO ONE (11:40)
--- NOTE | 2020-11-19 11:54 | PN ---
DATE SEEN: 11/18/2020 SUBJECTIVE: Liya Hubbard is an 80-year-old female in swing bed for 2 issues. Right forearm fracture nonsurgical; left hip fracture, total hip arthroplasty. Pain appears to be controlled. Pillows need to be just right. Nurse in the evening providing that skill. Sleep has been a bit of an impairment. Has a sense of nausea and fogginess from her oxycodone. We will consider other options. PHYSICAL EXAMINATION: VITAL SIGNS: 37.1, pulse 103, 134/65, 96% on room air. GENERAL: Conversant, appropriate. NECK: Benign. Thyroid small. CHEST: On auscultation, clear in all lung dickson. HEART: No ectopy or murmur. ABDOMEN: Rotund. EXTREMITIES: Right cast intact. Good peripheral blood flow. Surgical scar in right hip intact. ASSESSMENT: Right hip fracture with total hip arthroplasty, right wrist fracture, pain, and insomnia. PLAN: We will switch from oxycodone to tramadol. Will be given Tylenol routinely. Complementary care and well being. /[id number] /PERFECTO
--- NOTE | 2020-11-19 12:14 | PN ---
DATE SEEN: 11/19/2020 SUBJECTIVE: Liya Hubbard is an 80-year-old female in swing bed. Sustained after a fall right hip fracture and right wrist fracture. Doing well. Sleep has been a bit of interrupted. I stopped the Claritin uses for chronic itch. Would request her Tylenol PM back. Otherwise, doing well. PHYSICAL EXAMINATION: VITAL SIGNS: 141/71, 78, 36.7, 97% on room air. CONSTITUTIONAL: Appears well. NECK: Benign. Thyroid small. CHEST: Clear in all lung dickson. HEART: No ectopy or murmur. ABDOMEN: Benign. ASSESSMENT: Right hip fracture, right wrist fracture. PLAN: Medications, care, and treatment appropriate. Adjustments to dose accordingly. /[id number] [id number] VELASQUEZ/PERFECTO
[2020-11-19] MEDS: Loratadine 10 MG Tab PO SCH (23:16)
[2020-11-19] MEDS: Acetaminophen 650 MG Tab.ER PO SCH (23:16)
[2020-11-19] MEDS: ALPRAZolam 0.25 MG Tab PO PRN (23:17)
[2020-11-19] MEDS: Acetaminophen/Diphenhydramine 500-25 MG Tab PO SCH (23:17)
[2020-11-19] MEDS: traMADol 50 MG Tab PO SCH (23:17)
[2020-11-19] MEDS: Enoxaparin 40 MG/0.4 ML Syringe SUBCUT SCH (23:17)
[2020-11-20] MEDS: Ibuprofen 200 MG Tab PO SCH ×4 (04:47→21:38)
[2020-11-20] MEDS: Pantoprazole 40 MG Tab.CR PO SCH (06:49)
[2020-11-20] MEDS: metFORMIN 500 MG Tab PO SCH ×2 (07:51→17:14)
[2020-11-20] MEDS: Sodium Chloride 1 GM Tab PO SCH ×3 (07:52→17:15)
[2020-11-20] MEDS: Aspirin 81 MG Tab.Chew PO SCH (08:16)
[2020-11-20] MEDS: Fluticasone Propionate Nasal Spray 16 GM Bottle NAS SCH (08:16)
[2020-11-20] MEDS: Calcium Carbonate 500 MG Tablet PO SCH ×2 (08:17→21:36)
[2020-11-20] MEDS: Furosemide 20 MG Tab PO SCH (08:17)
[2020-11-20] MEDS: Carboxymethylcellulose Sodium 1% Ophth Gel 0.4 ML UD Box of 30 EYEBOTH SCH (08:17)
[2020-11-20] MEDS: rOPINIRole 1 MG Tab PO SCH ×3 (08:18→21:36)
[2020-11-20] MEDS: Ascorbic Acid 500 MG Tab PO SCH (08:19)
[2020-11-20] MEDS: Metoprolol Succinate 25 MG Tab.ER PO SCH (08:20)
[2020-11-20] MEDS: Multivitamins with Iron/Calcium/Folic Acid/Minerals Tab PO SCH (08:21)
[2020-11-20] MEDS: Acetaminophen 650 MG Tab.ER PO SCH ×2 (08:26→17:11)
[2020-11-20] MEDS: Gabapentin 100 MG Cap PO SCH ×3 (08:26→21:36)
--- NOTE | 2020-11-20 11:12 | PN ---
DATE SEEN: 11/20/2020 SUBJECTIVE: Liya Hubbard is an 80-year-old female in swing bed. Had a fall and fracture in her right hip and a nonsurgical casting of a right wrist fracture. Bones not specifically known. Doing well. Itch is better, pain is controlled, sleep has been improved. OBJECTIVE: VITAL SIGNS: 141/76, 20, 97%, 37.1. GENERAL: Appears comfortable. NECK: Benign. Thyroid small. CHEST: Clear in all lung dickson. HEART: Occasional ectopy. Soft murmur. ASSESSMENT: 1. Right hip fracture. 2. Right wrist fracture. 3. Recent aortic valve replacement. PLAN: Medications, care, and treatment appear to be appropriate. /[id number] [id number] VELASQUEZ/PERFECTO
[2020-11-20] MEDS: Enoxaparin 40 MG/0.4 ML Syringe SUBCUT SCH (21:34)
[2020-11-20] MEDS: traMADol 50 MG Tab PO SCH (21:37)
[2020-11-20] MEDS: Acetaminophen/Diphenhydramine 500-25 MG Tab PO SCH (21:37)
[2020-11-20] MEDS: ALPRAZolam 0.25 MG Tab PO PRN (21:39)
[2020-11-20] MEDS: Loratadine 10 MG Tab PO SCH (21:40)
[2020-11-21] MEDS: Ibuprofen 200 MG Tab PO SCH ×4 (04:34→21:25)
[2020-11-21] MEDS: Pantoprazole 40 MG Tab.CR PO SCH (06:36)
[2020-11-21] MEDS: metFORMIN 500 MG Tab PO SCH ×2 (07:45→17:19)
[2020-11-21] MEDS: Sodium Chloride 1 GM Tab PO SCH ×3 (07:46→17:20)
[2020-11-21] MEDS: Fluticasone Propionate Nasal Spray 16 GM Bottle NAS SCH (09:38)
[2020-11-21] MEDS: Ascorbic Acid 500 MG Tab PO SCH (09:39)
[2020-11-21] MEDS: Gabapentin 100 MG Cap PO SCH ×3 (09:39→21:24)
[2020-11-21] MEDS: Acetaminophen 650 MG Tab.ER PO SCH ×2 (09:40→16:01)
[2020-11-21] MEDS: rOPINIRole 1 MG Tab PO SCH ×3 (09:40→21:07)
[2020-11-21] MEDS: Metoprolol Succinate 25 MG Tab.ER PO SCH (09:41)
[2020-11-21] MEDS: Aspirin 81 MG Tab.Chew PO SCH (09:42)
[2020-11-21] MEDS: Furosemide 20 MG Tab PO SCH (09:42)
[2020-11-21] MEDS: Calcium Carbonate 500 MG Tablet PO SCH ×2 (09:43→21:06)
[2020-11-21] MEDS: Carboxymethylcellulose Sodium 1% Ophth Gel 0.4 ML UD Box of 30 EYEBOTH SCH (09:44)
[2020-11-21] MEDS: Multivitamins with Iron/Calcium/Folic Acid/Minerals Tab PO SCH (09:45)
--- NOTE | 2020-11-21 11:01 | PN ---
DATE SEEN: 11/21/2020 SUBJECTIVE: Liya Hubbard is an 80-year-old female in swing bed rehab. Had sustained a right wrist fracture and right hip fracture. Doing well. PT, OT, was comfortable with well being. Status of her anticoagulation is of concern. She is on 40 mg of Lovenox, but has had a TAVR aortic valve replacement. States that her slip filler said she had been on "blood thinners" only for 3 months duration. Lovenox suspect is mostly for DVT prevention from the hip fracture. Pain appears to be controlled. Sleep is problematic. OBJECTIVE: VITAL SIGNS: 36.9, 79, 160/66, 14, 98%. GENERAL: Appears comfortable. NECK: Benign. CHEST: Clear. HEART: Regular. ABDOMEN: Benign. Wound was examined, has likely an absorbable subcutaneous wire. Steri-Strips in place. Normal ecchymosis. ASSESSMENT: Right wrist fracture, right hip fracture, rehab. PLAN: Medications, care, and treatment appropriate. /[id number] /PERFECTO
[2020-11-21] MEDS: Triamcinolone Acetonide 0.1% Crm 80 GM Tube TOP SCH ×2 (11:20→21:14)
[2020-11-21] MEDS: Enoxaparin 40 MG/0.4 ML Syringe SUBCUT SCH (21:06)
[2020-11-21] MEDS: Acetaminophen/Diphenhydramine 500-25 MG Tab PO SCH (21:07)
[2020-11-21] MEDS: Loratadine 10 MG Tab PO SCH (21:09)
[2020-11-21] MEDS: traMADol 50 MG Tab PO SCH (21:26)
[2020-11-22] MEDS: Ibuprofen 200 MG Tab PO SCH ×4 (03:13→21:20)
[2020-11-22] MEDS: Pantoprazole 40 MG Tab.CR PO SCH (06:29)
[2020-11-22] MEDS: metFORMIN 500 MG Tab PO SCH ×2 (08:21→18:28)
[2020-11-22] MEDS: Sodium Chloride 1 GM Tab PO SCH ×3 (08:27→18:30)
[2020-11-22] MEDS: Aspirin 81 MG Tab.Chew PO SCH (08:27)
[2020-11-22] MEDS: Fluticasone Propionate Nasal Spray 16 GM Bottle NAS SCH (08:28)
[2020-11-22] MEDS: Triamcinolone Acetonide 0.1% Crm 80 GM Tube TOP SCH ×2 (08:30→20:22)
[2020-11-22] MEDS: Calcium Carbonate 500 MG Tablet PO SCH ×2 (08:32→20:24)
[2020-11-22] MEDS: Furosemide 20 MG Tab PO SCH (08:33)
[2020-11-22] MEDS: rOPINIRole 1 MG Tab PO SCH ×3 (08:34→20:24)
[2020-11-22] MEDS: Metoprolol Succinate 25 MG Tab.ER PO SCH (08:35)
[2020-11-22] MEDS: Multivitamins with Iron/Calcium/Folic Acid/Minerals Tab PO SCH (08:36)
[2020-11-22] MEDS: Ascorbic Acid 500 MG Tab PO SCH (08:37)
[2020-11-22] MEDS: Acetaminophen 650 MG Tab.ER PO SCH ×2 (08:37→17:01)
[2020-11-22] MEDS: Carboxymethylcellulose Sodium 1% Ophth Gel 0.4 ML UD Box of 30 EYEBOTH SCH (08:38)
[2020-11-22] MEDS: Gabapentin 100 MG Cap PO SCH ×3 (08:56→20:24)
--- NOTE | 2020-11-22 09:26 | PN ---
DATE SEEN: 11/22/2020 SUBJECTIVE: Liya Hubbard is an 80-year-old female in swing bed rehab. She sustained a fracture of her right wrist, and right hip fracture. Total hip arthroplasty. Wound was examined, healing well. She has a Monocryl absorbable suture. Ends will be trimmed. Wrist pain is more problematic than hip pain. As planned, radiographs for tomorrow, consultation and reviewing by her orthopedist in [place]. Otherwise, doing well. PT and OT are going well. Plans for discharge home upcoming and planned. Otherwise, doing well. Pain is controlled. OBJECTIVE: VITAL SIGNS: 1.63 m is the height, 71.75 kg, 131/71, pulse 80, respirations 14, 96. GENERAL: As always in good spirits. NECK: Benign. Thyroid small. CHEST: Clear. HEART: Regular. ABDOMEN: Benign. Cast intact, right wrist; good circulation distal. Wound healing well. ASSESSMENT: Right forearm fracture, right hip fracture. PLAN: Treatment, medications, and plans as above. /[id number] VELASQUEZ/PERFECTO
[2020-11-22] MEDS: Loratadine 10 MG Tab PO SCH (20:19)
[2020-11-22] MEDS: Enoxaparin 40 MG/0.4 ML Syringe SUBCUT SCH (20:23)
[2020-11-22] MEDS: traMADol 50 MG Tab PO SCH (20:25)
[2020-11-22] MEDS: Acetaminophen/Diphenhydramine 500-25 MG Tab PO SCH (20:25)
[2020-11-22] MEDS: ALPRAZolam 0.25 MG Tab PO PRN (20:28)
[2020-11-23] MEDS: Ibuprofen 200 MG Tab PO SCH ×3 (03:18→16:34)
[2020-11-23] MEDS: Pantoprazole 40 MG Tab.CR PO SCH (06:35)
[2020-11-23] MEDS: metFORMIN 500 MG Tab PO SCH (07:37)
[2020-11-23] MEDS: Sodium Chloride 1 GM Tab PO SCH ×2 (07:39→11:50)
[2020-11-23] MEDS: Ascorbic Acid 500 MG Tab PO SCH (08:41)
[2020-11-23] MEDS: Gabapentin 100 MG Cap PO SCH ×2 (08:41→14:02)
[2020-11-23] MEDS: rOPINIRole 1 MG Tab PO SCH ×2 (08:42→14:02)
[2020-11-23] MEDS: Acetaminophen 650 MG Tab.ER PO SCH ×2 (08:42→16:37)
[2020-11-23] MEDS: Calcium Carbonate 500 MG Tablet PO SCH (08:43)
[2020-11-23] MEDS: Furosemide 20 MG Tab PO SCH (08:44)
[2020-11-23] MEDS: Multivitamins with Iron/Calcium/Folic Acid/Minerals Tab PO SCH (08:44)
[2020-11-23] MEDS: Aspirin 81 MG Tab.Chew PO SCH (08:45)
[2020-11-23] MEDS: Fluticasone Propionate Nasal Spray 16 GM Bottle NAS SCH (08:46)
[2020-11-23] MEDS: Metoprolol Succinate 25 MG Tab.ER PO SCH (08:46)
[2020-11-23 08:48] VITALS: BP 145/58; PULSE 72
[2020-11-23] MEDS: Triamcinolone Acetonide 0.1% Crm 80 GM Tube TOP SCH (08:48)
[2020-11-23] MEDS: Carboxymethylcellulose Sodium 1% Ophth Gel 0.4 ML UD Box of 30 EYEBOTH SCH (08:49)
[2020-11-23] MEDS ORDERED: Loratadine 10 MG Tab PO SCH (10:15)
--- NOTE | 2020-11-23 12:16 | DISCH ---
DISCHARGE DATE: 11/23/2020 Liya Hubbard is an 80-year-old female admitted to swing bed in transfer from [facility] in [place]. She had sustained a fall on 10/21/2020 with a right wrist fracture, right hip fracture. She had surgical treatment of the right hip and casting of the right wrist. Has a history of TAVR prosthetic valve placed 07/24/2020, on 21-day course of Plavix and aspirin to follow. History of type 2 diabetes mellitus, congestive heart failure, neuropathy, pulmonary hypertension, chronic kidney disease, and GERD. She had an uneventful hospital course. Therapy was actively involved, PT/OT. Pain was controlled. Medications were adjusted, and she was in good condition for discharge home. She is having a teleconference today with Orthopedics from [facility] concerning the healing process of her hip and wrist and recommendations for followup. On medication, will be discharged accordingly, she is having active home health services involved with her care and treatment. Pain appears to be well controlled. PHYSICAL EXAMINATION: VITAL SIGNS: 37.2, 62, 149/75, 18, 96%. CONSTITUTIONAL: Appears comfortable. Speech was fluent. NECK: Benign. Thyroid small. CHEST: On auscultation, clear in all lung dickson. HEART: On auscultation, no ectopy or murmur. ABDOMEN: Benign. SKIN: Surgical wound with Steri-Strips was intact with the end of the absorbable suture trimmed. Cast was in good condition on her right wrist. LABORATORY STUDIES: On 11/16/2020, reviewed. PLAN: Discharge, home health services active, follow up with Orthopedics. Addendum: 30-minute visit, intervention, care, treatment, planning, and discharge. /[id number] 1205 VELASQUEZ/PERFECTO
--- NOTE | 2020-11-23 12:31 | CR ---
INDICATION: Follow-up fracture. RIGHT WRIST: Frontal and lateral views of the right wrist were obtained through a cast which limits detail and [facility]. Comminuted fracture of the distal radial metaphysis is noted with no definite change in position or alignment or acute process. There appears to be endosteal sclerosis compatible with interval progress in healing. A definite complicating process was not identified. IMPRESSION: Satisfactory appearance but with some dorsal angulation of the radial joint surface again noted. MTDD
--- NOTE | 2020-11-23 12:38 | CR ---
INDICATION: Followup right hip - hip arthroplasty. RIGHT HIP WITH PELVIS: Two frontal views of the pelvis with a lateral of the right hip were obtained 11/23/20 and compared with 11/11/20 again revealing hip arthroplasty on the right which remains in satisfactory position and alignment, without evidence of a complicating process. On the left, there is a hip pinning which remains satisfactory in appearance. No definite complicating process was identified. No new acute process was suggested. IMPRESSION: Satisfactory appearance post JOSUE on the right. EMMETT
[2020-11-23] MEDS ORDERED: Enoxaparin 40 MG/0.4 ML Syringe SUBCUT SCH (17:00)
== END 2020-11-23 17:23 | disposition home health service (06) | DRG 560 ==
LOC: FB.MS 14:09
PROVIDERS: ADMIT Family Medicine; ATTEND Family Medicine
DX: Z47.1 Aftercare following joint replacement surgery (principal); I13.0 Hypertensive heart and chronic kidney disease with heart failure and stage 1 through stage 4 chronic kidney disease, or unspecified chronic kidney disease; E87.1 Hypo-osmolality and hyponatremia; N39.0 Urinary tract infection, site not specified; S72.001D Fracture of unspecified part of neck of right femur, subsequent encounter for closed fracture with routine healing; S52.501D Unspecified fracture of the lower end of right radius, subsequent encounter for closed fracture with routine healing; I50.9 Heart failure, unspecified; N18.9 Chronic kidney disease, unspecified; E11.22 Type 2 diabetes mellitus with diabetic chronic kidney disease; K21.9 Gastro-esophageal reflux disease without esophagitis; I27.20 Pulmonary hypertension, unspecified; E11.42 Type 2 diabetes mellitus with diabetic polyneuropathy; J30.9 Allergic rhinitis, unspecified; E78.00 Pure hypercholesterolemia, unspecified; E78.5 Hyperlipidemia, unspecified; K57.90 Diverticulosis of intestine, part unspecified, without perforation or abscess without bleeding; M19.90 Unspecified osteoarthritis, unspecified site; R32 Unspecified urinary incontinence; F41.9 Anxiety disorder, unspecified; D64.9 Anemia, unspecified; Z96.641 Presence of right artificial hip joint; Z96.659 Presence of unspecified artificial knee joint; H91.90 Unspecified hearing loss, unspecified ear; Z79.01 Long term (current) use of anticoagulants; Z79.82 Long term (current) use of aspirin; Z79.02 Long term (current) use of antithrombotics/antiplatelets; Z88.8 Allergy status to other drugs, medicaments and biological substances; Z88.2 Allergy status to sulfonamides; Z91.041 Radiographic dye allergy status; Z91.018 Allergy to other foods; Z79.899 Other long term (current) drug therapy; Z98.49 Cataract extraction status, unspecified eye; Z90.49 Acquired absence of other specified parts of digestive tract; Z90.710 Acquired absence of both cervix and uterus; Z95.3 Presence of xenogenic heart valve
CPT/HCPCS: 36415; 73100-RT; 73501-RT; 80048; 97110-GP; 97112-GP; 97116-GP; 97161-GP; 97165-GO; 97530-GO; 97530-GP; 97535-GO; A9270-GY; J1650

== ENCOUNTER 2021-03-18 16:26 | Emergency (ER) | payer MEDICARE, BC ==
[2021-03-18] MEDS ORDERED: Nitroglycerin 0.4 MG Tab.SL SL ONE (16:27)
[2021-03-18 16:50] VITALS: BP 168/77; PULSE 60
--- NOTE | 2021-03-18 16:52 | EDM.PDOC ---
ED HPI GENERAL MEDICAL PROBLEM - General Stated Complaint: HIGH BLOOD PRESSURE Time Seen by Provider: 03/18/21 16:40 Source of Information: Reports: Patient History Limitations: Reports: No Limitations - History of Present Illness INITIAL COMMENTS - FREE TEXT/NARRATIVE: pt comes in ambulatory from home with concerns for recurrent chest pressure and dyspnea with exertion that she has been noticing since yesterday around noon, this lasts as long as she is exerting her self and resolves with rest, she denies any diaphoresis or fainting or cough or any other associated sx or concerns. pt is asymptomatic here , has Hx of aortic valve replacement this past july and Hx of DM . - Related Data Allergies Allergy/AdvReac Type Severity Reaction Status Date / Time lisinopril Allergy Severe Edema Verified 03/18/21 16:48 chocolate flavor Allergy Hives Verified 03/18/21 16:48 red dye Allergy Itching Verified 03/18/21 16:48 sulfamethoxazole Allergy Nausea Verified 03/18/21 16:48 [From ] trimethoprim [From ] Allergy Nausea Verified 03/18/21 16:48 Home Meds: Home Meds metFORMIN [Glucophage] 250 mg PO BIDMEALS 04/03/16 [History] Alendronate Sodium [Fosamax] 70 mg PO TU 02/04/18 [History] Gabapentin [Neurontin] 100 mg PO BID@0900,1300 02/04/18 [History] Omeprazole 20 mg PO ACBREAKFAST 02/04/18 [History] rOPINIRole [Requip] 0.25 mg PO BEDTIME 02/04/18 [History] Acetaminophen/Diphenhydramine [Tylenol Pm Ex-Strength Caplet] 1 tab PO BEDTIME PRN 08/06/18 [History] Calcium Carbonate/Vitamin D3 [Calcium 600 + Vit D 200] 1 tab PO BID 08/06/18 [History] Carboxymethylcellulose Sodium [Refresh Celluvisc] 1 drop EYEBOTH DAILY 08/06/18 [History] Lutein 10 mg PO DAILY 08/06/18 [History] SUMAtriptan [Imitrex] 50 mg PO ASDIRECTED #12 tablet 02/27/20 [Rx] Aspirin 81 mg PO DAILY 08/02/20 [History] Pravastatin Sodium 10 mg PO BEDTIME 08/02/20 [History] Metoprolol Succinate [Toprol XL] 25 mg PO DAILY 10/03/20 [History] ALPRAZolam [Xanax] 0.125 mg PO BEDTIME PRN 11/15/20 [History] Acetaminophen [Acetaminophen ER] 650 mg PO Q6H PRN 11/15/20 [History] Cranberry Conc/Ascorbic Acid [Cranberry Plus Vitamin C Sftgl] 1 cap PO DAILY 11/15/20 [History] Fluticasone Propionate [Flonase] 2 spray ARMANDO DAILY 11/15/20 [History] Furosemide 20 mg PO DAILY 11/15/20 [History] Gabapentin [Neurontin] 200 mg PO BEDTIME 11/15/20 [History] Glucosam/Chond/Collagen/Hyalur [Glucosamine Chondroitin] 1 cap PO DAILY 11/15/20 [History] Multivit-Min/FA/Lycopene/Lut [Senior Tabs] 1 tab PO DAILY 11/15/20 [History] ALPRAZolam [Xanax] 0.25 mg PO TID PRN tablet 11/23/20 [Rx] Acetaminophen [Tylenol Arthritis Pain] 1,300 mg PO BID@0900,1600 tab.er 11/23/20 [Rx] Acetaminophen/Diphenhydramine [Mapap PM] 1 tab PO BEDTIME tablet 11/23/20 [Rx] Ascorbic Acid [Vitamin C] 1,000 mg PO DAILY tablet 11/23/20 [Rx] Enoxaparin [Lovenox] 40 mg SQ Q24H 7 Days #7 syringe 11/23/20 [Rx] Loratadine [Claritin] 10 mg PO BID 30 Days #60 tablet 11/23/20 [Rx] Sodium Chloride 1 gm PO TIDMEALS tablet 11/23/20 [Rx] Triamcinolone Acetonide [Kenalog 0.1% Crm] 0 gm TOP BID tube 11/23/20 [Rx] rOPINIRole [Requip] 1 mg PO TID tablet 11/23/20 [Rx] traMADol [Ultram] 50 mg PO BID PRN 15 Days #30 tablet 11/23/20 [Rx] Past Medical History HEENT History: Reports: Allergic Rhinitis, Cataract Cardiovascular History: Reports: Heart Failure, Heart Murmur, Heart Valve Replacement, High Cholesterol, Hypertension, Other (See Below) Other Cardiovascular History: varicose veins, hyperlipidemia Respiratory History: Reports: None Gastrointestinal History: Reports: Diverticulosis, GERD Genitourinary History: Reports: Urinary Incontinence SUPERVISOR PARKING LOT History: Reports: Other SUPERVISOR PARKING LOT History: Musculoskeletal History: Reports: Arthritis, Osteoarthritis Neurological History: Reports: Neuropathy, Diabetic, Neuropathy, Peripheral, Other (See Below) Other Neuro History: restless leg syndrome, polyneuropathy Psychiatric History: Reports: Anxiety Endocrine/Metabolic History: Reports: Diabetes, Type II Hematologic History: Reports: Anemia, Anticoagulation Therapy Dermatologic History: Reports: None - Infectious Disease History Infectious Disease History: Reports: Chicken Pox, Measles, Mumps - Past Surgical History HEENT Surgical History: Reports: Cataract Surgery Cardiovascular Surgical History: Reports: Valve Replacement Respiratory Surgical History: Reports: None GI Surgical History: Reports: Appendectomy, Cholecystectomy, Colonoscopy, EGD, Hernia, Abdominal, Hernia Repair/Other Female Surgical History: Reports: Hysterectomy, Other (See Below) Other Female Surgeries/Procedures: BSO, bladder repair Endocrine Surgical History: Reports: None Musculoskeletal Surgical History: Reports: Hip Replacement, Knee Replacement, Other (See Below) Other Musculoskeletal Surgeries/Procedures:: Toe fusion, right total hip hemiarthroplasty Dermatological Surgical History: Reports: None Social & Family History - Family History Family Medical History: No Pertinent Family History - Caffeine Use Caffeine Use: Reports: Coffee, Tea - Living Situation & Occupation Occupation: Retired ED ROS GENERAL - Review of Systems Review Of Systems: See Below Constitutional: Reports: No Symptoms HEENT: Reports: No Symptoms Respiratory: Reports: Shortness of Breath. Denies: Wheezing, Cough Cardiovascular: Reports: Chest Pain, Dyspnea on Exertion. Denies: Edema, Palpitations GI/Abdominal: Reports: No Symptoms Musculoskeletal: Reports: No Symptoms Skin: Reports: No Symptoms Neurological: Reports: No Symptoms ED EXAM, GENERAL - Physical Exam Exam: See Below Exam Limited By: No Limitations General Appearance: Alert, No Apparent Distress Eye Exam: Bilateral Eye: Normal Inspection Nose: Normal Inspection Throat/Mouth: Normal Oropharynx Head: Normocephalic Neck: Normal Inspection, Supple Respiratory/Chest: No Respiratory Distress, Lungs Clear, Normal Breath Sounds Cardiovascular: Normal Peripheral Pulses, No Gallop, No JVD, Irregularly Irregular GI/Abdominal: Normal Bowel Sounds, Soft, Non-Tender Extremities: Normal Inspection, Normal Range of Motion, No Pedal Edema Neurological: Alert, Oriented, CN II-XII Intact, No Motor/Sensory Deficits Skin Exam: Warm, Dry Course - Vital Signs Text/Narrative:: labs results were explained to pt, EKG shows old LBBB and afib, her trop is neg, BNP is elevated at 6k+ and CXR is clear. pt clinically has recurrent Sx of angina also mild CHF , she is hemodynamically stable here and asymptomatic, she is medically stable to follow on those issues with her material preparation worker early this coming week, meanwhile i asked her to increase her lasix to 40 mg daily and use nitro for recurrent sx until she sees her material preparation worker this week. Last Recorded V/S: Last Vital Signs Temp 36.6 C 03/18/21 16:26 Pulse 60 03/18/21 16:26 Resp 18 03/18/21 16:26 BP 168/77 H 03/18/21 16:26 Pulse Ox 98 03/18/21 16:26 - Orders/Labs/Meds Orders: Active Orders 24 hr Category Date Time Status Chest 1V Frontal [CR] Stat Exams 03/18/21 16:53 Taken Labs: Laboratory Tests 03/18/21 03/18/21 03/18/21 Range/Units 17:00 17:00 17:00 WBC 7.6 (3.0-10.3) x10-3/uL RBC 4.04 (3.60-5.20) x10(6)uL Hgb 10.4 L (11.4-15.5) g/dL Hct 32.7 L (34.2-48.2) % MCV 81.1 (76.7-100.5) fL MCH 25.7 (23.9-33.9) pg MCHC 31.7 L (31.9-34.8) g/dL RDW 17.0 H (12.3-16.5) % Plt Count 391 (151-488) x10(3)uL MPV 6.7 L (7.1-12.4) fL Neut % (Auto) 65.6 (30.8-76.2) % Lymph % (Auto) 26.8 (18.4-52.1) % [place] % (Auto) 6.0 (4.4-15.7) % Eos % (Auto) 0.8 (0.6-8.1) % Baso % (Auto) 0.8 (0.2-1.5) % Neut # (Auto) 5.0 (1.5-6.3) x10-3/uL Lymph # (Auto) 2.0 (1.0-4.4) x10-3/uL [place] # (Auto) 0.5 (0.3-1.0) x10-3/uL Eos # (Auto) 0.1 (0.0-0.8) x10-3/uL Baso # (Auto) 0.1 (0.0-0.1) x10-3/uL PT 11.6 H (9.0-11.1) sec INR 1.08 (1.00-1.24) APTT 25.2 (24.4-33.2) SECONDS Sodium 132 L (135-145) mmol/L Potassium 3.9 (3.5-5.3) mmol/L Chloride 96 L (100-110) mmol/L Carbon Dioxide 27 (21-32) mmol/L BUN 28 H D (7-18) mg/dL Creatinine 1.3 H (0.55-1.02) mg/dL Est Cr Clr Drug Dosing TNP Estimated GFR (MDRD) 39 L (>60) BUN/Creatinine Ratio 21.5 H (9-20) Glucose 111 (80-116) mg/dL Calcium 8.7 (8.6-10.2) mg/dL Total Bilirubin 0.5 (0.1-1.3) mg/dL AST 63 H D (5-25) IU/L ALT 77 H D (12-36) U/L Alkaline Phosphatase 79 (56-112) IU/L Troponin I (4.0-60.3) pg/mL NT-Pro-B Natriuret Pep (<=450) pg/mL Total Protein 7.4 (6.0-8.0) g/dL Albumin 3.2 (3.2-4.6) g/dL Globulin 4.2 g/dL Albumin/Globulin Ratio 0.8 03/18/ Range/Units 17:00 WBC (3.0-10.3) x10-3/uL RBC (3.60-5.20) x10(6)uL Hgb (11.4-15.5) g/dL Hct (34.2-48.2) % MCV (76.7-100.5) fL MCH (23.9-33.9) pg MCHC (31.9-34.8) g/dL RDW (12.3-16.5) % Plt Count (151-488) x10(3)uL MPV (7.1-12.4) fL Neut % (Auto) (30.8-76.2) % Lymph % (Auto) (18.4-52.1) % [place] % (Auto) (4.4-15.7) % Eos % (Auto) (0.6-8.1) % Baso % (Auto) (0.2-1.5) % Neut # (Auto) (1.5-6.3) x10-3/uL Lymph # (Auto) (1.0-4.4) x10-3/uL [place] # (Auto) (0.3-1.0) x10-3/uL Eos # (Auto) (0.0-0.8) x10-3/uL Baso # (Auto) (0.0-0.1) x10-3/uL PT (9.0-11.1) sec INR (1.00-1.24) APTT (24.4-33.2) SECONDS Sodium (135-145) mmol/L Potassium (3.5-5.3) mmol/L Chloride (100-110) mmol/L Carbon Dioxide (21-32) mmol/L BUN (7-18) mg/dL Creatinine (0.55-1.02) mg/dL Est Cr Clr Drug Dosing Estimated GFR (MDRD) (>60) BUN/Creatinine Ratio (9-20) Glucose (80-116) mg/dL Calcium (8.6-10.2) mg/dL Total Bilirubin (0.1-1.3) mg/dL AST (5-25) IU/L ALT (12-36) U/L Alkaline Phosphatase (56-112) IU/L Troponin I 12.4 (4.0-60.3) pg/mL NT-Pro-B Natriuret Pep 6650 H* (<=450) pg/mL Total Protein (6.0-8.0) g/dL Albumin (3.2-4.6) g/dL Globulin g/dL Albumin/Globulin Ratio Departure - Departure Time of Disposition: 18:12 Disposition: Home, Self-Care 01 Clinical Impression: Chest pain - Discharge Information Referrals: Lovely Kurtz METEOROLOGICAL AIDE [Primary Care Provider] - Sepsis Event Note (ED) - Focused Exam Vital Signs: Vital Signs Temp Pulse Resp BP Pulse Ox 03/18/21 16:26 36.6 C 60 18 168/77 H 98 - My Orders Last 24 Hours: My Active Orders 03/18/21 16:53 Chest 1V Frontal [CR] Stat - Assessment/Plan Last 24 Hours: My Active Orders 03/18/21 16:53 Chest 1V Frontal [CR] Stat
[2021-03-18] MEDS ORDERED: Nitroglycerin 0.4 MG Tab.SL SL PRN (18:40)
--- NOTE | 2021-03-19 10:57 | CR ---
INDICATION: Chest pain. CHEST, ONE VIEW: AP upright portable view of the chest, 03/18/21 - no comparisons. Overlying EKG leads are noted. The heart appeared prominent in size and is felt to be at least at the upper limits of normal in size. The aorta is tortuous with calcification in the arch. Somewhat flattened diaphragm leaves with interdigitation on the left and an appearance of hyperaeration suggests possibility of COPD - correlate clinically. Somewhat heavy markings are noted at the lung bases making it difficult to exclude minimal patchy bronchopneumonia, although they may be on the basis of fibrosis. However, no gross consolidating pneumonia, or effusion was identified. IMPRESSION: 1. No definite acute process, but difficult to exclude minimal patchy bronchopneumonia at the lung bases versus fibrosis at the lung bases - lower lung dickson. 2. Probable ASHD. 3. Question COPD - correlate clinically. MTDD
== END 2021-03-18 19:00 | disposition home or self-care (01) ==
LOC: FB.ED 16:26 → SUPCPDRO 16:26 → FB.ED 19:00
DX: R07.89 Other chest pain (principal); I11.0 Hypertensive heart disease with heart failure; I50.9 Heart failure, unspecified; E78.00 Pure hypercholesterolemia, unspecified; K21.9 Gastro-esophageal reflux disease without esophagitis; M19.90 Unspecified osteoarthritis, unspecified site; E11.42 Type 2 diabetes mellitus with diabetic polyneuropathy; Z79.84 Long term (current) use of oral hypoglycemic drugs; Z88.1 Allergy status to other antibiotic agents; Z88.8 Allergy status to other drugs, medicaments and biological substances; Z91.048 Other nonmedicinal substance allergy status; Z91.041 Radiographic dye allergy status; Z79.899 Other long term (current) drug therapy; Z79.82 Long term (current) use of aspirin
CPT/HCPCS: 36415; 71045; 80053; 83880; 84484; 85025; 85610; 85730; 93005; 99285; A9270

== ENCOUNTER 2021-05-15 11:30 | Emergency (ER) | payer MEDICARE, BC ==
--- NOTE | 2021-05-15 13:41 | EDM.PDOC ---
ED HPI GENERAL MEDICAL PROBLEM - General Stated Complaint: WEAKNESS Time Seen by Provider: 05/15/21 11:40 Source of Information: Reports: Patient, Family History Limitations: Reports: No Limitations - History of Present Illness INITIAL COMMENTS - FREE TEXT/NARRATIVE: Patient presented to the ED because of weakness and dizziness since her freight receiver increased her metoprolol from 50 mg to 100 mg daily. Denies having any nausea or vomiting. There is no dyspnea,palpitations, or chest pain. - Related Data Allergies Allergy/AdvReac Type Severity Reaction Status Date / Time lisinopril Allergy Severe Edema Verified 05/15/21 15:00 chocolate flavor Allergy Hives Verified 05/15/21 15:00 red dye Allergy Itching Verified 05/15/21 15:00 sulfamethoxazole Allergy Nausea Verified 05/15/21 15:00 [From ] trimethoprim [From ] Allergy Nausea Verified 05/15/21 15:00 Home Meds: Home Meds . 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 TEACHER History: Reports: Other ACCOUNTING TEACHER History: Musculoskeletal History: Reports: Arthritis, Osteoarthritis Neurological History: Reports: Neuropathy, Diabetic, Neuropathy, Peripheral, Other (See Below) Other Neuro History: restless leg syndrome, polyneuropathy Psychiatric History: Reports: Anxiety Endocrine/Metabolic History: Reports: Diabetes, Type II Hematologic History: Reports: Anemia, Anticoagulation Therapy Dermatologic History: Reports: None - Infectious Disease History Infectious Disease History: Reports: Chicken Pox, Measles, Mumps - Past Surgical History HEENT Surgical History: Reports: Cataract Surgery Cardiovascular Surgical History: Reports: Valve Replacement Respiratory Surgical History: Reports: None GI Surgical History: Reports: Appendectomy, Cholecystectomy, Colonoscopy, EGD, Hernia, Abdominal, Hernia Repair/Other Female Surgical History: Reports: Hysterectomy, Other (See Below) Other Female Surgeries/Procedures: BSO, bladder repair Endocrine Surgical History: Reports: None Musculoskeletal Surgical History: Reports: Hip Replacement, Knee Replacement, Other (See Below) Other Musculoskeletal Surgeries/Procedures:: Toe fusion, right total hip hemiarthroplasty Dermatological Surgical History: Reports: None Social & Family History - Family History Family Medical History: No Pertinent Family History - Caffeine Use Caffeine Use: Reports: Coffee - Living Situation & Occupation Occupation: Retired ED ROS GENERAL - Review of Systems Review Of Systems: See Below Constitutional: Reports: No Symptoms HEENT: Reports: No Symptoms Respiratory: Reports: No Symptoms, Cough Cardiovascular: Reports: No Symptoms Endocrine: Reports: No Symptoms GI/Abdominal: Reports: No Symptoms : Reports: No Symptoms Musculoskeletal: Reports: No Symptoms Skin: Reports: No Symptoms Neurological: Reports: Dizziness Psychiatric: Reports: No Symptoms ED EXAM, GENERAL - Physical Exam Exam: See Below Exam Limited By: No Limitations General Appearance: Alert, No Apparent Distress Eye Exam: Bilateral Eye: PERRL Ears: Normal External Exam, Normal Canal, Normal TMs Nose: Normal Inspection, Normal Mucosa, No Blood Throat/Mouth: Normal Inspection, Normal Lips, Normal Teeth, Normal Oropharynx, Normal Voice Head: Atraumatic, Normocephalic Neck: Normal Inspection, Supple, Non-Tender, Full Range of Motion Respiratory/Chest: No Respiratory Distress, Lungs Clear, Normal Breath Sounds, No Accessory Muscle Use, Chest Non-Tender Cardiovascular: Normal Peripheral Pulses, Regular Rate, Rhythm, No Edema, No Gallop, No JVD, No Murmur, No Rub GI/Abdominal: Normal Bowel Sounds, Soft, Non-Tender, No Organomegaly, No Distention, No Abnormal Bruit, No Mass, Pelvis Stable Back Exam: Normal Inspection, Full Range of Motion Extremities: Normal Inspection, Normal Range of Motion, Non-Tender, No Pedal Edema, Normal Capillary Refill Neurological: Alert, Oriented, CN II-XII Intact, Normal Cognition, Normal Gait, Normal Reflexes, No Motor/Sensory Deficits Psychiatric: Normal Affect #1 Interpretation EKG Date: 05/15/21 Time: 12:46 Rhythm: A-Fib Rate (Beats/Min): 92 [place]: Normal P-Wave: Present QRS: LBBB ST-T: Normal QT: Normal ID/PQ Interval: 138 Comparison: No Change EKG Interpretation Comments: Afib LBBB Course - Vital Signs Text/Narrative:: Lab and EKG result was reviewed and discussed with patient. Last Recorded V/S: Last Vital Signs Temp 36.6 C 05/15/21 11:35 Pulse 82 05/15/21 13:00 Resp 18 05/15/21 13:00 BP 162/88 H 05/15/21 13:00 Pulse Ox 96 05/15/21 13:00 - Orders/Labs/Meds Labs: Laboratory Tests 05/15/21 05/15/21 05/15/21 Range/Units 12:20 12:20 12:20 WBC 6.3 (3.0-10.3) x10-3/uL RBC 4.14 (3.60-5.20) x10(6)uL Hgb 10.8 L (11.4-15.5) g/dL Hct 34.5 (34.2-48.2) % MCV 83.3 (76.7-100.5) fL MCH 26.2 (23.9-33.9) pg MCHC 31.4 L (31.9-34.8) g/dL RDW 24.0 H (12.3-16.5) % Plt Count 324 (151-488) x10(3)uL MPV 6.9 L (7.1-12.4) fL Neut % (Auto) 74.4 (30.8-76.2) % Lymph % (Auto) 17.3 L (18.4-52.1) % Boyle % (Auto) 6.0 (4.4-15.7) % Eos % (Auto) 1.6 (0.6-8.1) % Baso % (Auto) 0.7 (0.2-1.5) % Neut # (Auto) 4.7 (1.5-6.3) x10-3/uL Lymph # (Auto) 1.1 (1.0-4.4) x10-3/uL Boyle # (Auto) 0.4 (0.3-1.0) x10-3/uL Eos # (Auto) 0.1 (0.0-0.8) x10-3/uL Baso # (Auto) 0.0 (0.0-0.1) x10-3/uL Sodium 139 (135-145) mmol/L Potassium 4.1 (3.5-5.3) mmol/L Chloride 101 D (100-110) mmol/L Carbon Dioxide 30 (21-32) mmol/L BUN 25 H (7-18) mg/dL Creatinine 1.3 H (0.55-1.02) mg/dL Est Cr Clr Drug Dosing TNP Estimated GFR (MDRD) 39 L (>60) BUN/Creatinine Ratio 19.2 (9-20) Glucose 93 (80-116) mg/dL Calcium 9.0 (8.6-10.2) mg/dL Total Bilirubin 0.6 (0.1-1.3) mg/dL AST 13 D (5-25) IU/L ALT 19 D (12-36) U/L Alkaline Phosphatase 72 (56-112) IU/L Troponin I 16.2 (4.0-60.3) pg/mL NT-Pro-B Natriuret Pep 4157 H* (<=450) pg/mL Total Protein 7.5 (6.0-8.0) g/dL Albumin 3.2 (3.2-4.6) g/dL Globulin 4.3 g/dL Albumin/Globulin Ratio 0.7 TSH, Ultra Sensitive (0.36-3.74) IU/mL 05/15/ Range/Units 12:20 WBC (3.0-10.3) x10-3/uL RBC (3.60-5.20) x10(6)uL Hgb (11.4-15.5) g/dL Hct (34.2-48.2) % MCV (76.7-100.5) fL MCH (23.9-33.9) pg MCHC (31.9-34.8) g/dL RDW (12.3-16.5) % Plt Count (151-488) x10(3)uL MPV (7.1-12.4) fL Neut % (Auto) (30.8-76.2) % Lymph % (Auto) (18.4-52.1) % Boyle % (Auto) (4.4-15.7) % Eos % (Auto) (0.6-8.1) % Baso % (Auto) (0.2-1.5) % Neut # (Auto) (1.5-6.3) x10-3/uL Lymph # (Auto) (1.0-4.4) x10-3/uL Boyle # (Auto) (0.3-1.0) x10-3/uL Eos # (Auto) (0.0-0.8) x10-3/uL Baso # (Auto) (0.0-0.1) x10-3/uL Sodium (135-145) mmol/L Potassium (3.5-5.3) mmol/L Chloride (100-110) mmol/L Carbon Dioxide (21-32) mmol/L BUN (7-18) mg/dL Creatinine (0.55-1.02) mg/dL Est Cr Clr Drug Dosing Estimated GFR (MDRD) (>60) BUN/Creatinine Ratio (9-20) Glucose (80-116) mg/dL Calcium (8.6-10.2) mg/dL Total Bilirubin (0.1-1.3) mg/dL AST (5-25) IU/L ALT (12-36) U/L Alkaline Phosphatase (56-112) IU/L Troponin I (4.0-60.3) pg/mL NT-Pro-B Natriuret Pep (<=450) pg/mL Total Protein (6.0-8.0) g/dL Albumin (3.2-4.6) g/dL Globulin g/dL Albumin/Globulin Ratio TSH, Ultra Sensitive 0.88 (0.36-3.74) IU/mL Departure - Departure Time of Disposition: 13:50 Disposition: Home, Self-Care 01 Condition: Good Clinical Impression: Weakness, Chronic a-fib - Discharge Information Instructions: Weakness, [id number], Atrial Fibrillation, [id number] Referrals: Lovley Kurtz TIMERS INSPECTOR [Primary Care Provider] - Forms: ED Department Discharge Additional Instructions: Please read discharge instructions on AFIB and weakness You are a little bit dehydrated, people with congestive heart failure can drink 1-1.5 Liters of water daily Take your Metoprolol Succinate 50 mg twice daily instead of taking 100 mg every morning. Keep your appointment to visit your freight receiver/child care specialist soon.
--- NOTE | 2021-05-15 16:23 | CR ---
CHEST ONE VIEW INDICATION: Weakness, CHF. FINDINGS: AP upright portable view of the chest 05/15/21 was compared with 03/18/21 and revealed the heart to appear mildly prominent in size. It may be at the upper limits of normal in size, but is emphasized by the AP positioning. The aorta is slightly tortuous with calcification in the arch. Overlying electronic device noted at the left heart. Sclerosis is noted with marked narrowing of the glenohumeral joint space and subchondral cystic changes suggested, similar to the previous examination at the left glenohumeral joint. No definite evidence of CHF, active infiltrate or effusion was identified. IMPRESSION: No definite acute process. MTDD
[2021-05-15 20:58] VITALS: BP 162/88; PULSE 82
== END 2021-05-15 14:10 | disposition home or self-care (01) ==
LOC: FB.ED 11:30
DX: R53.1 Weakness (principal); I48.20 Chronic atrial fibrillation, unspecified; E78.00 Pure hypercholesterolemia, unspecified; I11.0 Hypertensive heart disease with heart failure; I50.9 Heart failure, unspecified; E11.42 Type 2 diabetes mellitus with diabetic polyneuropathy; Z91.041 Radiographic dye allergy status; Z88.1 Allergy status to other antibiotic agents; Z88.8 Allergy status to other drugs, medicaments and biological substances; Z91.018 Allergy to other foods
CPT/HCPCS: 36415; 71045; 80053; 83880; 84443; 84484; 85025; 93005; 93010; 99285; 99285-25

== ENCOUNTER 2022-06-30 02:17 | Emergency (ER) | payer MEDICARE, BC ==
[2022-06-30] MEDS ORDERED: Ondansetron 4 MG Tab.DIS PO ONE (02:59)
[2022-06-30] MEDS ORDERED: Ketorolac 30 MG/ML SDV IM ONE (03:38)
[2022-06-30] MEDS ORDERED: Acetaminophen/HYDROcodone 325-10 MG Tab PO ONE (04:37)
[2022-06-30 04:57] VITALS: BP 174/100; PULSE 82
== END 2022-06-30 05:35 ==
LOC: FB.ED 02:17
DX: M54.6 Pain in thoracic spine (principal); I48.20 Chronic atrial fibrillation, unspecified; K21.9 Gastro-esophageal reflux disease without esophagitis; I13.0 Hypertensive heart and chronic kidney disease with heart failure and stage 1 through stage 4 chronic kidney disease, or unspecified chronic kidney disease; E11.22 Type 2 diabetes mellitus with diabetic chronic kidney disease; N18.9 Chronic kidney disease, unspecified; I50.9 Heart failure, unspecified; E78.00 Pure hypercholesterolemia, unspecified; M19.90 Unspecified osteoarthritis, unspecified site; E11.42 Type 2 diabetes mellitus with diabetic polyneuropathy; Z88.8 Allergy status to other drugs, medicaments and biological substances; Z91.018 Allergy to other foods; Z91.041 Radiographic dye allergy status; Z88.2 Allergy status to sulfonamides; Z79.01 Long term (current) use of anticoagulants; Z79.899 Other long term (current) drug therapy; Z79.84 Long term (current) use of oral hypoglycemic drugs; Z95.4 Presence of other heart-valve replacement
CPT/HCPCS: 96372; 99284; A9270; J1885; Q0162

== ENCOUNTER 2022-11-20 21:29 | Emergency (ER) | payer MEDICARE, BC ==
[2022-11-20] MEDS ORDERED: Ondansetron 4 MG/2 ML SDV IVPUSH ONE (23:32)
[2022-11-20] MEDS ORDERED: fentaNYL 100 MCG/2 ML SDV IVPUSH ONE (23:32)
[2022-11-20] MEDS ORDERED: Sodium Chloride 0.9% 10 ML Syringe FLUSH PRN (23:32)
[2022-11-20] MEDS ORDERED: Sodium Chloride 0.9% 500 ML IV ONE (23:32)
[2022-11-21 00:02] LABS: BASOPHILS PERCENT AUTO 0.7 % (0.2-1.5); EOSINOPHILS ABSOLUTE AUTO 0.2 x10-3/uL (0.0-0.8); HEMATOCRIT 36.9 % (34.2-48.2); HEMOGLOBIN 12.1 g/dL (11.4-15.5); LYMPHOCYTES ABSOLUTE AUTO 1.1 x10-3/uL (1.0-4.4); LYMPHOCYTES PERCENT AUTO 17.8 % (18.4-52.1); MEAN CORPUSCULAR HEMOGLOBIN 31.5 pg (23.9-33.9); MEAN CORPUSCULAR HGB CONC 32.9 g/dL (31.9-34.8); MEAN CORPUSCULAR VOLUME 95.8 fL (76.7-100.5); MEAN PLATELET VOLUME 7.7 fL (7.1-12.4); MONOCYTES ABSOLUTE AUTO 0.5 x10-3/uL (0.3-1.0); MONOCYTES PERCENT AUTO 7.7 % (4.4-15.7); NEUTROPHILS ABSOLUTE AUTO 4.4 x10-3/uL (1.5-6.3); NEUTROPHILS PERCENT AUTO 70.8 % (30.8-76.2); PLATELET COUNT,PLT 217 x10(3)uL (151-488); RED BLOOD CELL COUNT 3.85 x10(6)uL (3.60-5.20); RED CELL DISTRIBUTION WIDTH 15.9 % (12.3-16.5); WHITE BLOOD CELL COUNT,WBC 6.3 x10-3/uL (3.0-10.3)
[2022-11-21 00:08] LABS: BILIRUBIN,URINE NEGATIVE (NEGATIVE); GLUCOSE,URINE NORMAL (NORMAL); KETONES,URINE NEGATIVE (NEGATIVE); LEUKOCYTE ESTERASE,URINE NEGATIVE (NEGATIVE); NITRITE,URINE NEGATIVE (NEGATIVE); OCCULT BLOOD,URINE NEGATIVE (NEGATIVE); PROTEIN,URINE NEGATIVE (NEGATIVE); UROBILINOGEN,URINE NORMAL (NEGATIVE)
[2022-11-21 00:12] LABS: APPEARANCE,URINE CLEAR (CLEAR); BACTERIA,URINE OCCASIONAL (NS); COLOR,URINE YELLOW (YELLOW); RBC,URINE NOT SEEN (0-5); SQUAMOUS EPITHELIAL CELLS,UR OCCASIONAL (NS,R,O); WBC,URINE 0-5 (0-5)
[2022-11-21 00:13] LABS: BLOOD UREA NITROGEN,BUN 26 mg/dL (7-18); BUN/CREATININE RATIO 21.7 (9-20); CALCIUM 9.3 mg/dL (8.6-10.2); CARBON DIOXIDE,CO2 30 mmol/L (21-32); CHLORIDE,CL 100 mmol/L (100-110); CREATININE 1.2 mg/dL (0.55-1.02); ESTIMATED GFR 45 mL/min (>60); GLUCOSE RANDOM 112 mg/dL (80-116); POTASSIUM,K 4.3 mmol/L (3.5-5.3); SODIUM,NA 138 mmol/L (135-145)
[2022-11-21 00:19] LABS: A/G RATIO 0.7; ALANINE AMINOTRANSFERASE,ALT 17 U/L (12-36); ALBUMIN 3.4 g/dL (3.2-4.6); ALKALINE PHOSPHATASE 100 IU/L (56-112); ASPARTATE AMNIOTRANSFERASE,AST 20 IU/L (5-25); BILIRUBIN TOTAL 0.4 mg/dL (0.1-1.3); MAGNESIUM 2.1 mg/dL (1.8-2.5); PROTEIN TOTAL,TP 8.1 g/dL (6.0-8.0)
[2022-11-21 07:02] VITALS: BP 123/71; PULSE 88
== END 2022-11-21 01:35 | disposition home or self-care (01) ==
LOC: FB.ED 21:29
DX: M54.16 Radiculopathy, lumbar region (principal); I11.0 Hypertensive heart disease with heart failure; I50.9 Heart failure, unspecified; E78.00 Pure hypercholesterolemia, unspecified; K21.9 Gastro-esophageal reflux disease without esophagitis; M19.90 Unspecified osteoarthritis, unspecified site; E11.42 Type 2 diabetes mellitus with diabetic polyneuropathy; Z79.01 Long term (current) use of anticoagulants; Z88.8 Allergy status to other drugs, medicaments and biological substances; Z91.018 Allergy to other foods; Z91.041 Radiographic dye allergy status; Z88.2 Allergy status to sulfonamides; Z79.899 Other long term (current) drug therapy; Z79.84 Long term (current) use of oral hypoglycemic drugs
CPT/HCPCS: 36415; 74176; 80053; 81001; 83735; 85025; 96374; 96375; 99284-25; J2405; J3010; J7040

== ENCOUNTER 2022-12-31 14:28 | Emergency (ER) | payer MEDICARE, BC ==
[2022-12-31] MEDS ORDERED: fentaNYL 100 MCG/2 ML SDV IV ONE (14:29)
[2022-12-31] MEDS ORDERED: Sodium Chloride 0.9% 1,000 ML IV SCH (14:45)
[2022-12-31 14:48] LABS: BASOPHILS ABSOLUTE AUTO 0.1 x10-3/uL (0.0-0.1); BASOPHILS PERCENT AUTO 0.4 % (0.2-1.5); EOSINOPHILS ABSOLUTE AUTO 0.2 x10-3/uL (0.0-0.8); EOSINOPHILS PERCENT AUTO 1.2 % (0.6-8.1); HEMATOCRIT 33.3 % (34.2-48.2); HEMOGLOBIN 10.9 g/dL (11.4-15.5); LYMPHOCYTES ABSOLUTE AUTO 1.6 x10-3/uL (1.0-4.4); LYMPHOCYTES PERCENT AUTO 11.6 % (18.4-52.1); MEAN CORPUSCULAR HEMOGLOBIN 31.6 pg (23.9-33.9); MEAN CORPUSCULAR HGB CONC 32.7 g/dL (31.9-34.8); MEAN CORPUSCULAR VOLUME 96.6 fL (76.7-100.5); MEAN PLATELET VOLUME 8.1 fL (7.1-12.4); MONOCYTES ABSOLUTE AUTO 0.8 x10-3/uL (0.3-1.0); NEUTROPHILS PERCENT AUTO 80.8 % (30.8-76.2); PLATELET COUNT,PLT 177 x10(3)uL (151-488); RED BLOOD CELL COUNT 3.45 x10(6)uL (3.60-5.20); RED CELL DISTRIBUTION WIDTH 15.5 % (12.3-16.5); WHITE BLOOD CELL COUNT,WBC 13.6 x10-3/uL (3.0-10.3)
[2022-12-31] MEDS ORDERED: Ondansetron 4 MG/2 ML SDV IVPUSH ONE (14:50)
[2022-12-31] MEDS ORDERED: Morphine 2 MG/ML SYRINGE IVPUSH ONE (14:50)
[2022-12-31] MEDS ORDERED: Sodium Chloride 0.9% 500 ML IV ONE (14:50)
[2022-12-31] MEDS ORDERED: Ondansetron 4 MG/2 ML SDV ONE (14:51)
[2022-12-31] MEDS ORDERED: Morphine 2 MG/ML SYRINGE ONE ×2 (14:51→15:28)
[2022-12-31 14:52] LABS: BLOOD UREA NITROGEN,BUN 29 mg/dL (7-18); BUN/CREATININE RATIO 20.7 (9-20); CALCIUM 8.4 mg/dL (8.6-10.2); CARBON DIOXIDE,CO2 26 mmol/L (21-32); CHLORIDE,CL 100 mmol/L (100-110); CREATININE 1.4 mg/dL (0.55-1.02); ESTIMATED GFR 37 mL/min (>60); GLUCOSE RANDOM 169 mg/dL (80-116); POTASSIUM,K 4.7 mmol/L (3.5-5.3); SODIUM,NA 135 mmol/L (135-145)
[2022-12-31 14:58] LABS: A/G RATIO 0.7; ALANINE AMINOTRANSFERASE,ALT 18 U/L (12-36); ALBUMIN 2.9 g/dL (3.2-4.6); ALKALINE PHOSPHATASE 84 IU/L (56-112); ASPARTATE AMNIOTRANSFERASE,AST 29 IU/L (5-25); BILIRUBIN TOTAL 0.6 mg/dL (0.1-1.3); PROTEIN TOTAL,TP 6.8 g/dL (6.0-8.0)
[2022-12-31 15:30] LABS: BILIRUBIN,URINE SMALL (NEGATIVE); GLUCOSE,URINE NORMAL (NORMAL); KETONES,URINE NEGATIVE (NEGATIVE); LEUKOCYTE ESTERASE,URINE SMALL (NEGATIVE); NITRITE,URINE NEGATIVE (NEGATIVE); OCCULT BLOOD,URINE MODERATE (NEGATIVE); PROTEIN,URINE 500 mg/dL (NEGATIVE); UROBILINOGEN,URINE 1 mg/dL (NEGATIVE)
[2022-12-31 15:36] LABS: APPEARANCE,URINE SLIGHTLY CLOUDY (CLEAR); BACTERIA,URINE MANY (NS); COLOR,URINE YELLOW (YELLOW); SQUAMOUS EPITHELIAL CELLS,UR FEW (NS,R,O)
[2022-12-31 15:36] LABS: BASE EXCESS VENOUS,POC -4 mmol/L (-2 - 3+); PCO2 VENOUS,POC 50 mmHg (41-51); PH VENOUS,POC 7.28 pH Units (7.32-7.43)
[2022-12-31] MEDS ORDERED: Factor IX Complex Human 500 UNIT VIAL IVPUSH ONE (16:00)
[2022-12-31] MEDS ORDERED: Sodium Chloride 0.9% 250 ML IV SCH (16:07)
[2022-12-31] MEDS ORDERED: Norepinephrine 4 MG in Dextrose 5% in Water 246 ML IV SCH ×2 (16:50)
[2022-12-31] MEDS: Norepinephrine Bit/D5W Premix 250 ML ONE ×2 (16:50→20:33)
== END 2022-12-31 17:10 ==
LOC: FB.ED 14:28
DX: S22.058A Other fracture of T5-T6 vertebra, initial encounter for closed fracture (principal); S22.020A Wedge compression fracture of second thoracic vertebra, initial encounter for closed fracture; S12.9XXA Fracture of neck, unspecified, initial encounter; S22.41XA Multiple fractures of ribs, right side, initial encounter for closed fracture; S01.01XA Laceration without foreign body of scalp, initial encounter; J96.01 Acute respiratory failure with hypoxia; R57.1 Hypovolemic shock; J94.2 Hemothorax; I50.9 Heart failure, unspecified; Z88.8 Allergy status to other drugs, medicaments and biological substances; Z91.018 Allergy to other foods; Z88.2 Allergy status to sulfonamides; Z91.041 Radiographic dye allergy status; Z79.899 Other long term (current) drug therapy; Z79.01 Long term (current) use of anticoagulants; Z79.84 Long term (current) use of oral hypoglycemic drugs; W10.9XXA Fall (on) (from) unspecified stairs and steps, initial encounter
CPT/HCPCS: 36415; 36430; 51702; 70450; 71045; 71250; 72125; 72128; 72131; 74176; 80053; 81001; 82947; 83690; 83735; 84484; 85025; 86850; 86900; 86901; 86920; 86922; 87086; 87088; 87186; 93005; 93010; 96361; 96365; 96375; 99285; 99291; 99292; G0390; J2270; J2405; J3010; J7030; J7040; J7050; J7168; P9016

== ENCOUNTER 2023-01-13 02:38 | Emergency (ER) | payer MEDICARE, BC, MEDICAID ==
[2023-01-13] MEDS ORDERED: Sodium Chloride 0.9% 10 ML Syringe FLUSH PRN (02:46)
[2023-01-13] MEDS ORDERED: Furosemide 40 MG/4 ML VIAL ONE (02:57)
[2023-01-13] MEDS ORDERED: Morphine 4 MG/ML VIAL ONE (02:57)
[2023-01-13] MEDS ORDERED: Furosemide 40 MG/4 ML VIAL IVPUSH ONE (02:58)
[2023-01-13 03:03] LABS: BASE EXCESS VENOUS,POC 7 mmol/L (-2 - 3+); PCO2 VENOUS,POC 89 mmHg (41-51); PH VENOUS,POC 7.23 pH Units (7.32-7.43)
[2023-01-13 03:03] LABS: HEMATOCRIT 32.6 % (34.2-48.2); HEMOGLOBIN 10.7 g/dL (11.4-15.5); MEAN CORPUSCULAR HEMOGLOBIN 32.5 pg (23.9-33.9); MEAN CORPUSCULAR HGB CONC 32.9 g/dL (31.9-34.8); MEAN CORPUSCULAR VOLUME 98.8 fL (76.7-100.5); PLATELET COUNT,PLT 413 x10(3)uL (151-488); RED CELL DISTRIBUTION WIDTH 17.8 % (12.3-16.5); WHITE BLOOD CELL COUNT,WBC 14.9 x10-3/uL (3.0-10.3)
[2023-01-13 03:08] LABS: BLOOD UREA NITROGEN,BUN 30 mg/dL (7-18); BUN/CREATININE RATIO 27.3 (9-20); CALCIUM 8.6 mg/dL (8.6-10.2); CARBON DIOXIDE,CO2 36 mmol/L (21-32); CHLORIDE,CL 92 mmol/L (100-110); CREATININE 1.1 mg/dL (0.55-1.02); ESTIMATED GFR 50 mL/min (>60); GLUCOSE RANDOM 254 mg/dL (80-116); POTASSIUM,K 4.9 mmol/L (3.5-5.3); SODIUM,NA 129 mmol/L (135-145)
[2023-01-13] MEDS ORDERED: Etomidate 2 MG/ML 20 ML SDV IVPUSH ONE (03:13)
[2023-01-13 03:14] LABS: A/G RATIO 0.6; ALANINE AMINOTRANSFERASE,ALT 27 U/L (12-36); ALBUMIN 2.6 g/dL (3.2-4.6); ALKALINE PHOSPHATASE 138 IU/L (56-112); ASPARTATE AMNIOTRANSFERASE,AST 40 IU/L (5-25)
[2023-01-13] MEDS ORDERED: Succinylcholine 200 MG/10 ML MDV IV ONE (03:14)
[2023-01-13 03:18] LABS: BAND PERCENT MAN 1 % (0-6); EOSINOPHILS PERCENT MAN 2 % (0-5); LYMPHOCYTES PERCENT MAN 5 % (13-37); MONOCYTES PERCENT MAN 8 % (4-12); SEG NEUTROPHILS PERCENT MAN 84 % (46-82)
[2023-01-13] MEDS ORDERED: VANCOmycin 1.5 GM/300 ML 1.5 GM in Premix Bag 1 BAG IV ONE (03:25)
[2023-01-13] MEDS ORDERED: Piperacillin/Tazobactam 3.375 GM in Sodium Chloride 0.9% 50 ML IV SCH (03:30)
[2023-01-13] MEDS: Midazolam 1 MG/ML 2 ML SDV IVPUSH PRN ×3 (03:30→04:15)
[2023-01-13 03:47] LABS: TROPONIN I 127.4 pg/mL (4.0-60.3)
[2023-01-13] MEDS ORDERED: Sodium Chloride 0.9% 500 ML IV ONE (03:51)
[2023-01-13] MEDS ORDERED: Norepinephrine Bit/D5W Premix 4 MG in Premix Bag 1 BAG IV SCH (04:00)
[2023-01-13] MEDS ORDERED: Norepinephrine Bit/D5W Premix 250 ML ONE (04:01)
[2023-01-13 05:34] LABS: BILIRUBIN,URINE NEGATIVE (NEGATIVE); GLUCOSE,URINE NORMAL (NORMAL); KETONES,URINE 15 mg/dL (NEGATIVE); LEUKOCYTE ESTERASE,URINE LARGE (NEGATIVE); NITRITE,URINE NEGATIVE (NEGATIVE); OCCULT BLOOD,URINE TRACE (NEGATIVE); PROTEIN,URINE TRACE mg/dL (NEGATIVE); UROBILINOGEN,URINE NORMAL (NEGATIVE)
[2023-01-13 05:39] LABS: APPEARANCE,URINE CLOUDY (CLEAR); COLOR,URINE YELLOW (YELLOW)
[2023-01-13 05:40] LABS: AMORPHOUS SEDIMENT,URINE MODERATE; BACTERIA,URINE MANY (NS); RBC,URINE 0-5 (0-5); SQUAMOUS EPITHELIAL CELLS,UR FEW (NS,R,O); WBC,URINE 50-75 (0-5)
[2023-01-13] MEDS ORDERED: Midazolam Oral Soln 10 MG/5 ML UD Cup PO PRN (09:01)
[2023-01-13 10:01] VITALS: BP 136/82; PULSE 83
== END 2023-01-13 05:08 ==
LOC: FB.ED 02:40
DX: J96.01 Acute respiratory failure with hypoxia (principal); J96.02 Acute respiratory failure with hypercapnia; I11.0 Hypertensive heart disease with heart failure; I50.9 Heart failure, unspecified; J18.9 Pneumonia, unspecified organism; I48.91 Unspecified atrial fibrillation; E11.9 Type 2 diabetes mellitus without complications; E78.00 Pure hypercholesterolemia, unspecified; K21.9 Gastro-esophageal reflux disease without esophagitis; Z79.01 Long term (current) use of anticoagulants; Z79.84 Long term (current) use of oral hypoglycemic drugs; Z79.899 Other long term (current) drug therapy; Z88.2 Allergy status to sulfonamides; Z88.1 Allergy status to other antibiotic agents; Z88.8 Allergy status to other drugs, medicaments and biological substances; Z91.041 Radiographic dye allergy status
CPT/HCPCS: 31500; 36415; 43752; 51702; 71045; 80053; 81001; 83605; 83735; 83880; 84484; 85025; 87040; 87086; 87088; 87186; 93005; 96365; 96367; 96368; 96375; 99291; 99292; J0330; J1940; J2250; J2543; J3370; J3490; J7040

== ENCOUNTER 2023-03-04 16:05 | Inpatient (IN) | payer MEDICARE, BC ==
[2023-03-04] MEDS ORDERED: Sodium Chloride 0.9% 1,000 ML IV ONE (16:26)
[2023-03-04] MEDS ORDERED: Ondansetron 4 MG/2 ML SDV IVPUSH ONE (16:37)
[2023-03-04 16:40] LABS: BASOPHILS PERCENT AUTO 0.5 % (0.2-1.5); EOSINOPHILS ABSOLUTE AUTO 0.1 x10-3/uL (0.0-0.8); EOSINOPHILS PERCENT AUTO 0.9 % (0.6-8.1); HEMOGLOBIN 11.8 g/dL (11.4-15.5); LYMPHOCYTES ABSOLUTE AUTO 0.7 x10-3/uL (1.0-4.4); LYMPHOCYTES PERCENT AUTO 10.8 % (18.4-52.1); MEAN CORPUSCULAR HEMOGLOBIN 32.6 pg (23.9-33.9); MEAN CORPUSCULAR HGB CONC 32.8 g/dL (31.9-34.8); MEAN CORPUSCULAR VOLUME 99.4 fL (76.7-100.5); MEAN PLATELET VOLUME 7.6 fL (7.1-12.4); MONOCYTES ABSOLUTE AUTO 0.6 x10-3/uL (0.3-1.0); MONOCYTES PERCENT AUTO 9.8 % (4.4-15.7); PLATELET COUNT,PLT 287 x10(3)uL (151-488); RED BLOOD CELL COUNT 3.62 x10(6)uL (3.60-5.20); WHITE BLOOD CELL COUNT,WBC 6.4 x10-3/uL (3.0-10.3)
[2023-03-04 16:43] LABS: BASE EXCESS VENOUS,POC 6 mmol/L (-2 - 3+); PCO2 VENOUS,POC 44 mmHg (41-51); PH VENOUS,POC 7.45 pH Units (7.32-7.43)
[2023-03-04 16:43] LABS: BLOOD UREA NITROGEN,BUN 37 mg/dL (7-18); BUN/CREATININE RATIO 28.5 (9-20); CALCIUM 9.5 mg/dL (8.6-10.2); CARBON DIOXIDE,CO2 32 mmol/L (21-32); CHLORIDE,CL 91 mmol/L (100-110); CREATININE 1.3 mg/dL (0.55-1.02); ESTIMATED GFR 41 mL/min (>60); GLUCOSE RANDOM 116 mg/dL (80-116); POTASSIUM,K 4.4 mmol/L (3.5-5.3); SODIUM,NA 128 mmol/L (135-145)
[2023-03-04 16:49] LABS: A/G RATIO 0.6; ALANINE AMINOTRANSFERASE,ALT 26 U/L (12-36); ALBUMIN 3.1 g/dL (3.2-4.6); ALKALINE PHOSPHATASE 98 IU/L (56-112); ASPARTATE AMNIOTRANSFERASE,AST 26 IU/L (5-25); PROTEIN TOTAL,TP 8.1 g/dL (6.0-8.0)
[2023-03-04 16:56] LABS: TROPONIN I 18.3 pg/mL (4.0-60.3)
[2023-03-04 17:02] LABS: C-REACTIVE PROTEIN 8.25 mg/dL (<0.33)
[2023-03-04] MEDS ORDERED: Diltiazem 125 MG in Sodium Chloride 0.9% 100 ML IV SCH (17:15)
[2023-03-04 17:48] LABS: BILIRUBIN,URINE NEGATIVE (NEGATIVE); GLUCOSE,URINE NORMAL (NORMAL); KETONES,URINE NEGATIVE (NEGATIVE); LEUKOCYTE ESTERASE,URINE MODERATE (NEGATIVE); NITRITE,URINE NEGATIVE (NEGATIVE); OCCULT BLOOD,URINE NEGATIVE (NEGATIVE); PROTEIN,URINE NEGATIVE (NEGATIVE); UROBILINOGEN,URINE NORMAL (NEGATIVE)
[2023-03-04 17:49] LABS: APPEARANCE,URINE CLEAR (CLEAR); BACTERIA,URINE MODERATE (NS); COLOR,URINE YELLOW (YELLOW); HYALINE CASTS,URINE FEW (NS); MUCUS,URINE MODERATE (NS); RBC,URINE 0-5 (0-5); SQUAMOUS EPITHELIAL CELLS,UR MODERATE (NS,R,O); WBC,URINE 0-5 (0-5)
[2023-03-04] MEDS ORDERED: Metoprolol Succinate 50 MG Tab.ER PO ONE (20:08)
[2023-03-04] MEDS ORDERED: traMADol 50 MG Tab PO ONE (20:26)
[2023-03-04] MEDS ORDERED: Naloxone 0.4 MG/ML SDV IVPUSH PRN (20:42)
[2023-03-04] MEDS ORDERED: Acetaminophen 325 MG Tab PO PRN (20:42)
[2023-03-04] MEDS ORDERED: ALPRAZolam 0.25 MG Tab PO PRN (20:47)
[2023-03-04] MEDS ORDERED: traMADol 50 MG Tab PO PRN (20:47)
[2023-03-04] MEDS ORDERED: Ferrous Sulfate 325 MG Tab PO SCH (21:00)
[2023-03-04] MEDS ORDERED: PRAVASTATIN SODIUM 10 MG PO SCH (21:00)
[2023-03-04] MEDS: Apixaban 5 MG Tab PO SCH (21:52)
[2023-03-04] MEDS: Sennosides/Docusate Sodium 50-8.6 MG Tab PO SCH (21:52)
[2023-03-04] MEDS: Gabapentin 100 MG Cap PO SCH (21:52)
[2023-03-04] MEDS: busPIRone 5 MG Tab PO SCH (21:52)
[2023-03-04] MEDS: Metoprolol Succinate 50 MG Tab.ER PO SCH (21:54)
[2023-03-04] MEDS: Ondansetron 4 MG/2 ML SDV IVPUSH PRN (22:06)
[2023-03-04] MEDS: Acetaminophen 325 MG Tab PO PRN (22:09)
[2023-03-04] MEDS: Non-Formulary Medication 1 Each (Amino Acids/Protein Hydrolys [Liquacel Liquid Protein] 96 PO SCH (22:11)
[2023-03-04] MEDS: rOPINIRole 0.5 MG Tab PO SCH (22:27)
[2023-03-04] MEDS: Pravastatin 20 MG Tab PO SCH (22:32)
[2023-03-05] MEDS ORDERED: Pantoprazole 20 MG Tab, Delayed Release PO SCH ×2 (06:00→07:30)
[2023-03-05] MEDS ORDERED: Alendronate 70 MG Tab PO SCH (06:00)
[2023-03-05] MEDS: Pantoprazole 40 MG Tab.CR PO SCH (06:26)
[2023-03-05 07:28] LABS: BASOPHILS PERCENT AUTO 0.7 % (0.2-1.5); EOSINOPHILS ABSOLUTE AUTO 0.1 x10-3/uL (0.0-0.8); EOSINOPHILS PERCENT AUTO 1.5 % (0.6-8.1); HEMATOCRIT 36.3 % (34.2-48.2); HEMOGLOBIN 11.6 g/dL (11.4-15.5); LYMPHOCYTES ABSOLUTE AUTO 0.7 x10-3/uL (1.0-4.4); LYMPHOCYTES PERCENT AUTO 11.7 % (18.4-52.1); MEAN CORPUSCULAR HEMOGLOBIN 31.9 pg (23.9-33.9); MEAN CORPUSCULAR HGB CONC 31.9 g/dL (31.9-34.8); MEAN CORPUSCULAR VOLUME 99.9 fL (76.7-100.5); MEAN PLATELET VOLUME 7.7 fL (7.1-12.4); MONOCYTES ABSOLUTE AUTO 0.6 x10-3/uL (0.3-1.0); NEUTROPHILS ABSOLUTE AUTO 4.4 x10-3/uL (1.5-6.3); NEUTROPHILS PERCENT AUTO 76.1 % (30.8-76.2); PLATELET COUNT,PLT 297 x10(3)uL (151-488); RED BLOOD CELL COUNT 3.64 x10(6)uL (3.60-5.20); RED CELL DISTRIBUTION WIDTH 16.1 % (12.3-16.5); WHITE BLOOD CELL COUNT,WBC 5.7 x10-3/uL (3.0-10.3)
[2023-03-05 07:29] LABS: BLOOD UREA NITROGEN,BUN 42 mg/dL (7-18); BUN/CREATININE RATIO 32.3 (9-20); CALCIUM 9.1 mg/dL (8.6-10.2); CARBON DIOXIDE,CO2 32 mmol/L (21-32); CHLORIDE,CL 92 mmol/L (100-110); CREATININE 1.3 mg/dL (0.55-1.02); EST CRCL DRUG DOSING (CG) 28.31 mL/min; ESTIMATED GFR 41 mL/min (>60); GLUCOSE RANDOM 112 mg/dL (80-116); POTASSIUM,K 4.7 mmol/L (3.5-5.3); SODIUM,NA 130 mmol/L (135-145)
[2023-03-05] MEDS ORDERED: Bumetanide 1 MG Tab PO SCH (08:00)
[2023-03-05] MEDS ORDERED: Diltiazem 180 MG Cap.CD PO ONE (09:04)
[2023-03-05] MEDS: Bumetanide 1 MG Tab PO SCH ×2 (09:10→14:22)
[2023-03-05] MEDS ORDERED: Loratadine 10 MG Tab PO PRN (09:11)
[2023-03-05] MEDS: Ferrous Sulfate 325 MG Tab PO SCH ×2 (09:11→18:15)
[2023-03-05] MEDS: metFORMIN 500 MG Tab PO SCH ×2 (09:11→18:15)
[2023-03-05] MEDS ORDERED: Miconazole 2% Vaginal Crm 45 GM Tube TOP PRN (09:11)
[2023-03-05] MEDS: busPIRone 5 MG Tab PO SCH ×2 (09:12→20:56)
[2023-03-05] MEDS: Polyethylene Glycol 3350 Powder 17 GM Packet PO SCH (09:12)
[2023-03-05] MEDS: Apixaban 5 MG Tab PO SCH ×2 (09:13→20:55)
[2023-03-05] MEDS: Sennosides/Docusate Sodium 50-8.6 MG Tab PO SCH ×2 (09:13→20:57)
[2023-03-05] MEDS: Gabapentin 100 MG Cap PO SCH ×3 (09:24→20:55)
[2023-03-05] MEDS: Metoprolol Succinate 50 MG Tab.ER PO SCH ×2 (10:12→11:42)
[2023-03-05] MEDS: Acetaminophen 325 MG Tab PO SCH ×2 (10:13→18:14)
[2023-03-05] MEDS: Metoprolol Succinate 25 MG Tab.ER PO SCH (10:17)
[2023-03-05] MEDS: Ondansetron 4 MG/2 ML SDV IVPUSH PRN (11:22)
[2023-03-05] MEDS: Sodium Chloride 0.9% 10 ML Syringe FLUSH PRN ×2 (11:24→13:11)
[2023-03-05] MEDS: Non-Formulary Medication 1 Each (Amino Acids/Protein Hydrolys [Liquacel Liquid Protein] 96 PO SCH (11:44)
[2023-03-05] MEDS ORDERED: Furosemide 40 MG/4 ML VIAL IVPUSH ONE (11:53)
[2023-03-05] MEDS: Calcium Carbonate 500 MG Tablet PO SCH (18:15)
[2023-03-05] MEDS ORDERED: Aluminum Hydroxide/Magnesium Hydroxide Susp 30 ML Cup PO PRN (20:39)
[2023-03-05] MEDS: Pravastatin 20 MG Tab PO SCH (20:56)
[2023-03-05] MEDS: rOPINIRole 0.5 MG Tab PO SCH (20:56)
[2023-03-05] MEDS: Latanoprost 0.005% Ophth Soln 2.5 ML Bottle EYEBOTH SCH (20:56)
[2023-03-05] MEDS ORDERED: Pravastatin 20 MG Tab PO SCH (21:00)
[2023-03-06] MEDS: Acetaminophen 325 MG Tab PO SCH ×3 (01:50→17:30)
[2023-03-06] MEDS: Pantoprazole 40 MG Tab.CR PO SCH (05:48)
[2023-03-06 06:41] LABS: BASOPHILS PERCENT AUTO 0.4 % (0.2-1.5); EOSINOPHILS ABSOLUTE AUTO 0.1 x10-3/uL (0.0-0.8); HEMATOCRIT 34.4 % (34.2-48.2); HEMOGLOBIN 11.4 g/dL (11.4-15.5); LYMPHOCYTES ABSOLUTE AUTO 0.5 x10-3/uL (1.0-4.4); LYMPHOCYTES PERCENT AUTO 8.7 % (18.4-52.1); MEAN CORPUSCULAR HEMOGLOBIN 32.8 pg (23.9-33.9); MEAN CORPUSCULAR HGB CONC 33.1 g/dL (31.9-34.8); MEAN CORPUSCULAR VOLUME 99.2 fL (76.7-100.5); MEAN PLATELET VOLUME 8.1 fL (7.1-12.4); MONOCYTES ABSOLUTE AUTO 0.5 x10-3/uL (0.3-1.0); NEUTROPHILS PERCENT AUTO 81.9 % (30.8-76.2); PLATELET COUNT,PLT 302 x10(3)uL (151-488); RED BLOOD CELL COUNT 3.47 x10(6)uL (3.60-5.20); RED CELL DISTRIBUTION WIDTH 15.9 % (12.3-16.5); WHITE BLOOD CELL COUNT,WBC 6.2 x10-3/uL (3.0-10.3)
[2023-03-06 06:59] LABS: A/G RATIO 0.6; ALANINE AMINOTRANSFERASE,ALT 143 U/L (12-36); ALBUMIN 2.9 g/dL (3.2-4.6); ALKALINE PHOSPHATASE 94 IU/L (56-112); BILIRUBIN TOTAL 0.9 mg/dL (0.1-1.3); BLOOD UREA NITROGEN,BUN 47 mg/dL (7-18); BUN/CREATININE RATIO 36.2 (9-20); CARBON DIOXIDE,CO2 33 mmol/L (21-32); CHLORIDE,CL 91 mmol/L (100-110); CREATININE 1.3 mg/dL (0.55-1.02); EST CRCL DRUG DOSING (CG) 28.31 mL/min; ESTIMATED GFR 41 mL/min (>60); GLUCOSE RANDOM 107 mg/dL (80-116); POTASSIUM,K 4.7 mmol/L (3.5-5.3); PROTEIN TOTAL,TP 7.5 g/dL (6.0-8.0); SODIUM,NA 128 mmol/L (135-145)
[2023-03-06 07:10] LABS: CALCIUM 9.1 mg/dL (8.6-10.2)
[2023-03-06 07:23] LABS: ASPARTATE AMNIOTRANSFERASE,AST 184 IU/L (5-25)
[2023-03-06] MEDS: metFORMIN 500 MG Tab PO SCH ×2 (08:35→17:30)
[2023-03-06] MEDS: Sennosides/Docusate Sodium 50-8.6 MG Tab PO SCH ×2 (08:36→20:35)
[2023-03-06] MEDS: Multivitamins with Iron/Calcium/Folic Acid/Minerals Tab PO SCH (08:36)
[2023-03-06] MEDS: Metoprolol Succinate 25 MG Tab.ER PO SCH (08:36)
[2023-03-06] MEDS: Apixaban 5 MG Tab PO SCH ×2 (08:37→20:35)
[2023-03-06] MEDS: Ferrous Sulfate 325 MG Tab PO SCH ×2 (08:37→17:31)
[2023-03-06] MEDS: Calcium Carbonate 500 MG Tablet PO SCH ×2 (08:37→17:31)
[2023-03-06] MEDS: Bumetanide 1 MG Tab PO SCH (08:37)
[2023-03-06] MEDS: Cranberry 500 MG Cap PO SCH (08:37)
[2023-03-06] MEDS: busPIRone 5 MG Tab PO SCH ×2 (08:37→20:35)
[2023-03-06] MEDS: Polyethylene Glycol 3350 Powder 17 GM Packet PO SCH (08:38)
[2023-03-06] MEDS: Gabapentin 100 MG Cap PO SCH ×3 (08:52→20:34)
[2023-03-06] MEDS: Furosemide 40 MG/4 ML VIAL IVPUSH SCH ×3 (09:54→21:12)
[2023-03-06] MEDS: Pravastatin 20 MG Tab PO SCH (20:35)
[2023-03-06] MEDS: rOPINIRole 0.5 MG Tab PO SCH (20:35)
[2023-03-06] MEDS: Latanoprost 0.005% Ophth Soln 2.5 ML Bottle EYEBOTH SCH (20:36)
[2023-03-06] MEDS ORDERED: Non-Formulary Medication 1 Each (Alendronate [Fosamax] 35 MG Tablet) PO SCH (20:47)
[2023-03-06] MEDS: Sodium Chloride 0.9% 10 ML Syringe FLUSH PRN ×2 (21:14→21:20)
[2023-03-06] MEDS: Ondansetron 4 MG/2 ML SDV IVPUSH PRN (21:17)
[2023-03-06] MEDS: Acetaminophen 325 MG Tab PO PRN (22:29)
[2023-03-07] MEDS ORDERED: LORazepam 1 MG Tab PO ONE (00:45)
[2023-03-07] MEDS: Acetaminophen 325 MG Tab PO SCH ×3 (01:14→18:20)
[2023-03-07] MEDS: Pantoprazole 40 MG Tab.CR PO SCH (06:08)
[2023-03-07 06:45] LABS: HEMATOCRIT 36.3 % (34.2-48.2); MEAN CORPUSCULAR HEMOGLOBIN 33.1 pg (23.9-33.9); MEAN CORPUSCULAR HGB CONC 33.2 g/dL (31.9-34.8); MEAN CORPUSCULAR VOLUME 99.7 fL (76.7-100.5); MEAN PLATELET VOLUME 7.7 fL (7.1-12.4); PLATELET COUNT,PLT 372 x10(3)uL (151-488); RED BLOOD CELL COUNT 3.64 x10(6)uL (3.60-5.20); WHITE BLOOD CELL COUNT,WBC 8.3 x10-3/uL (3.0-10.3)
[2023-03-07 06:50] LABS: BLOOD UREA NITROGEN,BUN 49 mg/dL (7-18); BUN/CREATININE RATIO 32.7 (9-20); CALCIUM 9.2 mg/dL (8.6-10.2); CARBON DIOXIDE,CO2 35 mmol/L (21-32); CREATININE 1.5 mg/dL (0.55-1.02); EST CRCL DRUG DOSING (CG) 24.54 mL/min; ESTIMATED GFR 34 mL/min (>60); GLUCOSE RANDOM 144 mg/dL (80-116); POTASSIUM,K 4.9 mmol/L (3.5-5.3); SODIUM,NA 127 mmol/L (135-145)
[2023-03-07 06:55] LABS: CHLORIDE,CL 89 mmol/L (100-110)
[2023-03-07 07:28] LABS: BAND PERCENT MAN 5 % (0-6); EOSINOPHILS PERCENT MAN 1 % (0-5); LYMPHOCYTES PERCENT MAN 7 % (13-37); METAMYELOCYTE PERCENT MAN 1 % (0-0); MONOCYTES PERCENT MAN 4 % (4-12); MYELOCYTE PERCENT MAN 1 % (0-0); SEG NEUTROPHILS PERCENT MAN 81 % (46-82)
[2023-03-07 07:29] LABS: POLYCHROMASIA FEW
[2023-03-07] MEDS: Morphine 2 MG/ML SYRINGE IVPUSH PRN ×2 (07:49→14:32)
[2023-03-07] MEDS ORDERED: Nitroglycerin/D5W 25 MG/250 ML BOTTLE IV SCH (08:30)
[2023-03-07] MEDS: Furosemide 40 MG/4 ML VIAL IVPUSH SCH ×2 (08:36→14:18)
[2023-03-07] MEDS ORDERED: Sodium Chloride 0.9% 1,000 ML IV SCH (09:00)
[2023-03-07] MEDS ORDERED: Norepinephrine Bit/D5W Premix 4 MG in Premix Bag 1 BAG IV SCH (09:15)
[2023-03-07 09:16] LABS: BASE EXCESS VENOUS,POC -1 mmol/L (-2 - 3+); PCO2 VENOUS,POC 63 mmHg (41-51); PH VENOUS,POC 7.26 pH Units (7.32-7.43)
[2023-03-07] MEDS: Calcium Carbonate 500 MG Tablet PO SCH (11:13)
[2023-03-07] MEDS: Ferrous Sulfate 325 MG Tab PO SCH (11:13)
[2023-03-07] MEDS: metFORMIN 500 MG Tab PO SCH (11:13)
[2023-03-07] MEDS: Gabapentin 100 MG Cap PO SCH ×2 (11:14→14:54)
[2023-03-07] MEDS: Polyethylene Glycol 3350 Powder 17 GM Packet PO SCH (11:14)
[2023-03-07] MEDS: Multivitamins with Iron/Calcium/Folic Acid/Minerals Tab PO SCH (11:14)
[2023-03-07] MEDS: Cranberry 500 MG Cap PO SCH (11:14)
[2023-03-07] MEDS: Apixaban 5 MG Tab PO SCH (11:14)
[2023-03-07] MEDS: Metoprolol Succinate 25 MG Tab.ER PO SCH (11:14)
[2023-03-07] MEDS: Sennosides/Docusate Sodium 50-8.6 MG Tab PO SCH (11:14)
[2023-03-07] MEDS: busPIRone 5 MG Tab PO SCH (11:14)
[2023-03-07] MEDS ORDERED: LORazepam 2 MG/ML SDV IVPUSH PRN (14:35)
[2023-03-07] MEDS ORDERED: Morphine 10 MG/ML SDV IVPUSH PRN (14:38)
[2023-03-07] MEDS ORDERED: Hyoscyamine 0.125 MG Tab.SL SL PRN (15:12)
[2023-03-07 18:13] VITALS: BP 118/70; PULSE 109
== END 2023-03-07 15:45 | disposition expired | DRG 291 ==
LOC: FB.ED 16:05 → FB.MS 20:41 → OBSVTOIN 03-06 09:35
PROVIDERS: ADMIT Family Medicine; ATTEND Family Medicine
PROC: 4A033R1 Measurement of Arterial Saturation, Peripheral, Percutaneous Approach (ICD-10-PCS; principal; 2023-03-04)
PROC: 3E033XZ Introduction of Vasopressor into Peripheral Vein, Percutaneous Approach (ICD-10-PCS; 2023-03-07)
PROC: 5A0935A Assistance with Respiratory Ventilation, Less than 24 Consecutive Hours, High Flow/Velocity Cannula (ICD-10-PCS; 2023-03-07)
DX: I11.0 Hypertensive heart disease with heart failure (principal); I50.43 Acute on chronic combined systolic (congestive) and diastolic (congestive) heart failure; J96.00 Acute respiratory failure, unspecified whether with hypoxia or hypercapnia; I31.39 Other pericardial effusion (noninflammatory); E87.1 Hypo-osmolality and hyponatremia; E87.20 Acidosis, unspecified; I48.91 Unspecified atrial fibrillation; K21.9 Gastro-esophageal reflux disease without esophagitis; G89.29 Other chronic pain; Z66 Do not resuscitate; Z51.5 Encounter for palliative care; G25.81 Restless legs syndrome; E11.42 Type 2 diabetes mellitus with diabetic polyneuropathy; F41.9 Anxiety disorder, unspecified; D64.9 Anemia, unspecified; M54.9 Dorsalgia, unspecified; E78.00 Pure hypercholesterolemia, unspecified; Z96.643 Presence of artificial hip joint, bilateral; E86.0 Dehydration; Z20.822 Contact with and (suspected) exposure to COVID-19; M19.90 Unspecified osteoarthritis, unspecified site; Z96.653 Presence of artificial knee joint, bilateral; Z87.440 Personal history of urinary (tract) infections; Z88.2 Allergy status to sulfonamides; Z79.01 Long term (current) use of anticoagulants; Z95.2 Presence of prosthetic heart valve; Z88.8 Allergy status to other drugs, medicaments and biological substances; Z91.041 Radiographic dye allergy status; Z91.02 Food additives allergy status; Z79.899 Other long term (current) drug therapy; Z95.0 Presence of cardiac pacemaker; Z87.09 Personal history of other diseases of the respiratory system; Z87.19 Personal history of other diseases of the digestive system; Z87.448 Personal history of other diseases of urinary system; Z79.4 Long term (current) use of insulin; Z90.49 Acquired absence of other specified parts of digestive tract; Z90.710 Acquired absence of both cervix and uterus; Z98.890 Other specified postprocedural states; Z11.52 Encounter for screening for COVID-19; Z79.1 Long term (current) use of non-steroidal anti-inflammatories (NSAID); Z97.8 Presence of other specified devices; Z90.722 Acquired absence of ovaries, bilateral; Z86.19 Personal history of other infectious and parasitic diseases; Z98.1 Arthrodesis status; Z98.49 Cataract extraction status, unspecified eye
CPT/HCPCS: 36415; 71045; 71250; 80048; 80053; 81001; 83605; 83880; 84484; 85025; 86140; 87040; 93005; 93010; 96365; 96366; 96375; 96376; 99223; 99233; 99238; 99285; 99285-25; A9270-GY; G0378; J1940; J2060; J2270; J2405; J3490; J7030; U0002